=== PATIENT | male | born 1945 | race Caucasian/White ===

== ENCOUNTER 2025-07-06 08:42 | Emergency (ER) | payer OTHER, SELFPAY ==
[2025-07-06 09:14] VITALS: BP 197/95; PULSE 86; RESP 18; TEMP 36.9; O2SAT 99
[2025-07-06 09:16] VITALS: BMI 24.7
--- NOTE | 2025-07-06 09:16 | XR_ITS ---
Examination: Shoulder,left, 3 views Technique: Shoulder AP internal rotation, AP external rotation, Y view shoulder, 3 views Exam date and time :July 06, 2025, 0925 hours INDICATIONS: Patient fell 3 weeks ago with intravenous shoulder, shoulder pain. FINDINGS: No shoulder fracture or dislocation Moderate narrowing glenohumeral joint IMPRESSION: No shoulder fracture or dislocation
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
[2025-07-06] MEDS: HYDROcodone/APAP 5/325 TABLET 1 TAB PO (09:52)
[2025-07-06 10:23] VITALS: BP 142/86; PULSE 68; RESP 18; TEMP 36.6; O2SAT 100
== END 2025-07-06 10:24 | disposition home or self-care (01) ==
PROVIDERS: Emergency Provider Emergency Medicine; PCP Family Medicine
DX: S43.402A Unspecified sprain of left shoulder joint, initial encounter (principal); X58.XXXA Exposure to other specified factors, initial encounter; I10 Essential (primary) hypertension
CPT/HCPCS: 73030; 99284; A9270

== ENCOUNTER → 2025-07-16 | Outpatient (CLI) | payer OTHER, SELFPAY ==
[2025-07-16 10:56] LABS: Basophils # (Auto) 0.0 Thou/mm3 (0.0-0.2); Basophils % (Auto) 0 % (0-2.5); Eosinophils # (Auto) 0.0 Thou/mm3 (0.0-0.5); Eosinophils % (Auto) 0 % (0-10); Hematocrit 41.4 % (41.0-53.0); Hemoglobin 14.1 g/dL (13.5-16.0); Immature Granulocytes Auto 0.03 Thou/mm3 (0.00-0.00); Lymphocytes # (Auto) 1.2 Thou/mm3 (1.0-4.8); Lymphocytes % (Auto) 13 % (10-50); Mean Corpuscular HGB Conc 34.1 g/dl (31.0-37.0); Mean Corpuscular Hemoglobin 29.9 pg (25.0-35.0); Mean Corpuscular Volume 88 fL (80-100); Monocytes # (Auto) 0.7 Thou/mm3 (0.0-0.8); Monocytes % (Auto) 8 % (0-12); Neutrophils # (Auto) 6.8 Thou/mm3 (1.8-7.7); Neutrophils % (Auto) 78 % (37-80); Nucleated Red Blood Cell # 0.00 Thou/mm3 (0.00-0.00); Nucleated Red Blood Cell % 0 /100 WBC (0); Platelet Count 289 Thou/mm3 (140-440); RDW Standard Deviation 40.9 fL (35.1-43.9); Red Blood Count 4.71 Miln/mm3 (4.50-5.90); White Blood Count 8.7 Thou/mm3 (3.8-10.6)
[2025-07-16 11:01] LABS: Glucose Estimated Average 103 mg/dL (80-131); Hemoglobin A1C 5.2 % Hgb (4.8-6.0)
[2025-07-16 11:12] LABS: T4 (Thyroxine) 7.3 mcg/dL (4.5-10.9)
[2025-07-16 11:14] LABS: Alanine Aminotransferase 32 U/L (10-49); Albumin, Serum 4.6 gm/dL (3.4-4.8); Albumin/Globulin Ratio 2.0 (1.2-2.2); Alkaline Phosphatase 99 U/L (46-116); Anion Gap 9 (7-16); Aspartate Amino Transferase 30 U/L (0-34); BUN/Creatinine Ratio 15 Ratio (12-20); Bilirubin,Total 0.7 mg/dL (0.3-1.2); Blood Urea Nitrogen 15 mg/dL (9-23); Calcium 10.1 mg/dL (8.3-10.6); Calcium (Corrected) 10.1 mg/dL (8.5-10.1); Carbon Dioxide 27.6 mMol/L (20.0-31.0); Chloride 97 mMol/L (98-107); Creatinine (Component) 1.0 mg/dL (0.6-1.3); Globulin 2.3 gm/dL (2.3-3.5); Glucose 106 mg/dL (74-106); Osmolality,Calculated 269 (275-295); Potassium 5.7 mMol/L (3.4-5.1); Sodium 134 mMol/L (136-145); Thyroid Stimulating Hormone 1.11 uIU/mL (0.55-4.78); Total Protein 6.9 gm/dL (5.7-8.2); eGFR > 60 See Note
--- NOTE | 2025-07-16 11:30 | XR_ITS ---
Examination: CT left shoulder, without contrast. 2-D sagittal reconstructions. 2-D coronal reconstructions. 3-D reconstructions. Date and time of exam:July 16, 2025 1134 hours INDICATIONS: Patient fell 6 weeks ago with into the shoulder, shoulder pain. CTDI: vol (mGy):6.95 DLP: (mGycm):157 Technique: Multiple 1.25 mm axial sections of the left shoulder without intravenous contrast have been obtained. 2-D sagittal and coronal reconstructions have been obtained. 3-D reconstructions have been obtained. Low dose protocols were performed. One or more of the following dose reduction techniques were used; automated exposure control, adjustment of the mA and/or KV according to patient size, use of iterative reconstruction technique. 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
== END | disposition home or self-care (01) ==
PROVIDERS: PCP Family Medicine; Referring Provider Nurse Practitioner Family; Visit Provider Nurse Practitioner Family
DX: M89.8X8 Other specified disorders of bone, other site (principal); I10 Essential (primary) hypertension
CPT/HCPCS: 36415; 73200; 80053; 83036; 84436; 84443; 85025

== ENCOUNTER → 2025-07-17 | Outpatient (CLI) | payer OTHER, SELFPAY ==
[2025-07-17 09:41] LABS: Alanine Aminotransferase 30 U/L (10-49); Albumin, Serum 4.5 gm/dL (3.4-4.8); Albumin/Globulin Ratio 2.0 (1.2-2.2); Alkaline Phosphatase 113 U/L (46-116); Anion Gap 11 (7-16); Aspartate Amino Transferase 27 U/L (0-34); BUN/Creatinine Ratio 18 Ratio (12-20); Bilirubin,Total 0.4 mg/dL (0.3-1.2); Blood Urea Nitrogen 20 mg/dL (9-23); Calcium 9.9 mg/dL (8.3-10.6); Calcium (Corrected) 9.9 mg/dL (8.5-10.1); Carbon Dioxide 28.2 mMol/L (20.0-31.0); Chloride 100 mMol/L (98-107); Creatinine (Component) 1.1 mg/dL (0.6-1.3); Globulin 2.3 gm/dL (2.3-3.5); Glucose 98 mg/dL (74-106); Osmolality,Calculated 280 (275-295); Potassium 4.4 mMol/L (3.4-5.1); Sodium 139 mMol/L (136-145); Total Protein 6.8 gm/dL (5.7-8.2); eGFR > 60 See Note
== END | disposition home or self-care (01) ==
PROVIDERS: PCP Family Medicine; Referring Provider Nurse Practitioner Family; Visit Provider Nurse Practitioner Family
DX: E87.5 Hyperkalemia (principal)
CPT/HCPCS: 36415; 80053

== ENCOUNTER → 2025-07-20 | Outpatient (CLI) | payer OTHER, SELFPAY ==
--- NOTE | 2025-07-20 09:36 | XR_ITS ---
Examination: PA lateral chest 2 views TECHNIQUE: Upright PA lateral chest 2 views Date and time: July 20, 2025 0945 hours, comparison July 09, 2023 INDICATIONS: Left-sided chest and back pain beginning 2 months ago. FINDINGS: Normal heart size. Suspicious for 4 cm pulmonary mass right upper lobe. No pulmonary edema Prominent osteopenia IMPRESSION: Recommend CT chest post intravenous contrast follow-up to exclude 4 cm pulmonary mass right upper lobe
[2025-07-20 11:25] LABS: PSA Medicare Annual Scrn 1.26 ng/mL (0-4.00)
[2025-07-20 11:29] LABS: AFP Non-Pregnant 1.80 ng/mL (<8.10); Carcinoembryonic Antigen 1.1 ng/mL (0.0-5.0)
[2025-07-27 06:24] LABS: CA 19-9 Antigen* 14 U/mL (<34)
== END | disposition home or self-care (01) ==
LOC: CDIM 09:32 → COPL 09:52
PROVIDERS: PCP Family Medicine; Referring Provider Nurse Practitioner Family; Visit Provider Radiology Diagnostic Radiology
DX: R07.82 Intercostal pain (principal); Z12.5 Encounter for screening for malignant neoplasm of prostate; Z85.830 Personal history of malignant neoplasm of bone
CPT/HCPCS: 36415; 71046; 82105; 82378; 84153; 86301; G0103

== ENCOUNTER → 2025-08-04 | Outpatient (CLI) | payer OTHER, SELFPAY ==
--- NOTE | 2025-08-04 10:20 | XR_ITS ---
Examination: CT chest, without intravenous contrast. Sagittal and coronal 2-D reconstructions. Exam date and time: August 04, 2025 1055 hours INDICATIONS: 4 cm pulmonary mass right upper lobe on chest CTDI:vol (mGy) 7.95 DLP: (mGycm) 272 Technique: Multiple 3.0 mm axial sections of the chest to been obtained. Bone and lung density settings are obtained. Sagittal and coronal 2-D reconstructions have been obtained. Low dose protocols were performed. One or more of the following dose reduction techniques were used; automated exposure control, adjustment of the mA and/or KV according to patient size, use of iterative reconstruction technique. Findings: Thoracic aortic calcification no aneurysmal dilatation Subcentimeter right tracheobronchial lymph nodes Heavy calcification left anterior descending coronary artery 19 mm spiculated pulmonary mass right upper lobe image 79 6 mm pulmonary nodule left upper lobe image 165 4 mm pulmonary nodule right lower lobe image 173 10 mm pulmonary nodule left lower lobe image 227 Pulmonary mass right upper lobe lobular margins 3.7 cm axial image 114 Large soft tissue metastatic mass T5 destroying the vertebral body and extending into the thoracic cord compressing the thoracic cord, axial image 108, this metastatic soft tissue mass measuring at least 5.4 x 4.1 cm No focal liver lesions no gallstones Fat-containing 23 mm right adrenal mass There appears to be a solid mass anterior right kidney on this noncontrast study at least 5.8 cm IMPRESSION: 3.7 cm pulmonary mass right upper lobe with multiple additional nodules, most consistent with lung cancer Soft tissue metastatic mass to C5 destroying this vertebral body and extending into the spinal canal compressing the thoracic cord Recommend emergent MRI cervical thoracic and lumbar spine post contrast follow-up Recommend CT scan abdomen pelvis to assess solid right renal tumor mass and consider CT scan soft tissue neck follow-up to complete staging
== END | disposition home or self-care (01) ==
PROVIDERS: PCP Nurse Practitioner Family; Referring Provider Nurse Practitioner Family; Visit Provider Nurse Practitioner Family
DX: Z12.2 Encounter for screening for malignant neoplasm of respiratory organs (principal); R91.8 Other nonspecific abnormal finding of lung field; C79.51 Secondary malignant neoplasm of bone; C79.49 Secondary malignant neoplasm of other parts of nervous system
CPT/HCPCS: 71271

== ENCOUNTER → 2025-08-17 | Outpatient (CLI) | payer OTHER, SELFPAY ==
[2025-08-17 09:35] LABS: Basophils # (Auto) 0.0 Thou/mm3 (0.0-0.2); Basophils % (Auto) 0 % (0-2.5); Eosinophils # (Auto) 0.0 Thou/mm3 (0.0-0.5); Eosinophils % (Auto) 0 % (0-10); Hematocrit 43.5 % (41.0-53.0); Hemoglobin 15.2 g/dL (13.5-16.0); Immature Granulocytes Auto 0.03 Thou/mm3 (0.00-0.00); Lymphocytes # (Auto) 1.1 Thou/mm3 (1.0-4.8); Lymphocytes % (Auto) 13 % (10-50); Mean Corpuscular HGB Conc 34.9 g/dl (31.0-37.0); Mean Corpuscular Hemoglobin 29.6 pg (25.0-35.0); Mean Corpuscular Volume 85 fL (80-100); Monocytes # (Auto) 0.7 Thou/mm3 (0.0-0.8); Monocytes % (Auto) 9 % (0-12); Neutrophils # (Auto) 6.3 Thou/mm3 (1.8-7.7); Neutrophils % (Auto) 77 % (37-80); Nucleated Red Blood Cell # 0.00 Thou/mm3 (0.00-0.00); Nucleated Red Blood Cell % 0 /100 WBC (0); Platelet Count 354 Thou/mm3 (140-440); RDW Standard Deviation 35.8 fL (35.1-43.9); Red Blood Count 5.14 Miln/mm3 (4.50-5.90); White Blood Count 8.2 Thou/mm3 (3.8-10.6)
[2025-08-17 09:56] LABS: Alanine Aminotransferase 40 U/L (10-49); Albumin, Serum 4.7 gm/dL (3.4-4.8); Alkaline Phosphatase 104 U/L (46-116); Anion Gap 13 (7-16); Aspartate Amino Transferase 38 U/L (0-34); BUN/Creatinine Ratio 11 Ratio (12-20); Bilirubin,Direct 0.2 mg/dL (0.0-0.3); Bilirubin,Total 0.5 mg/dL (0.3-1.2); Blood Urea Nitrogen 14 mg/dL (9-23); Calcium 9.7 mg/dL (8.3-10.6); Carbon Dioxide 25.8 mMol/L (20.0-31.0); Cardiac Risk Estimate 3.5 RATIO (4.0-6.7); Chloride 98 mMol/L (98-107); Cholesterol 274 mg/dL (132-200); Creatinine (Component) 1.3 mg/dL (0.6-1.3); Free T4 (Free Thyroxine) 1.30 ng/dL (0.89-1.76); Glucose 110 mg/dL (74-106); HDL Cholesterol 78 mg/dL (40-60); LDL Cholesterol,Calculated 175 mg/dL (0-130); Osmolality,Calculated 275 (275-295); Potassium 4.1 mMol/L (3.4-5.1); Sodium 137 mMol/L (136-145); Thyroid Stimulating Hormone 1.22 uIU/mL (0.55-4.78); Total Protein 7.4 gm/dL (5.7-8.2); Triglycerides 105 mg/dL (30-150); eGFR 55 See Note
== END | disposition home or self-care (01) ==
LOC: COPL 08:02
PROVIDERS: PCP Family Medicine; Referring Provider Internal Medicine Cardiovascular Disease; Visit Provider Internal Medicine Cardiovascular Disease
DX: I10 Essential (primary) hypertension (principal); E78.5 Hyperlipidemia, unspecified; I20.9 Angina pectoris, unspecified; I49.9 Cardiac arrhythmia, unspecified
CPT/HCPCS: 36415; 80048; 80061; 80076; 84439; 84443; 85025

== ENCOUNTER 2025-09-17 07:29 | Outpatient (CLI) | payer OTHER, SELFPAY ==
[2025-09-15 13:16] VITALS: BMI 19.9
[2025-09-16 12:27] LABS: Basophils # (Auto) 0.1 Thou/mm3 (0.0-0.2); Basophils % (Auto) 0 % (0-2.5); Eosinophils # (Auto) 0.0 Thou/mm3 (0.0-0.5); Eosinophils % (Auto) 0 % (0-10); Hematocrit 40.8 % (41.0-53.0); Hemoglobin 14.1 g/dL (13.5-16.0); Immature Granulocytes Auto 0.04 Thou/mm3 (0.00-0.00); Lymphocytes # (Auto) 1.1 Thou/mm3 (1.0-4.8); Lymphocytes % (Auto) 9 % (10-50); Mean Corpuscular HGB Conc 34.6 g/dl (31.0-37.0); Mean Corpuscular Hemoglobin 28.9 pg (25.0-35.0); Mean Corpuscular Volume 84 fL (80-100); Monocytes # (Auto) 1.1 Thou/mm3 (0.0-0.8); Monocytes % (Auto) 9 % (0-12); Neutrophils # (Auto) 9.2 Thou/mm3 (1.8-7.7); Neutrophils % (Auto) 81 % (37-80); Nucleated Red Blood Cell # 0.00 Thou/mm3 (0.00-0.00); Nucleated Red Blood Cell % 0 /100 WBC (0); Platelet Count 329 Thou/mm3 (140-440); RDW Standard Deviation 35.9 fL (35.1-43.9); Red Blood Count 4.88 Miln/mm3 (4.50-5.90); White Blood Count 11.4 Thou/mm3 (3.8-10.6)
[2025-09-16 12:35] LABS: Blood Urea Nitrogen 28 mg/dL (9-23); Creatinine (Component) 1.1 mg/dL (0.6-1.3); Estimated Creatinine Clearance 39.2 mL/min (>60); eGFR > 60 See Note
[2025-09-16 14:45] LABS: INR 1.0 (0.9-1.3); Partial Thromboplastin Time 38.2 Seconds (22.0-36.0); Prothrombin Time 11.0 Seconds (9.0-12.2)
[2025-09-17] VITALS (16 sets, daily range): BP systolic 113–179; BP diastolic 47–122; PULSE 73–95; RESP 11–20; TEMP 36.2–36.7; O2SAT 96–100
--- NOTE | 2025-09-17 08:30 | XR_ITS ---
EXAM: CT-guided right lung mass biopsy INDICATION: Right lung mass DATE: 09/17/2025, 10:31 a.m. CTDI: 26.2 DLP: 562 PROCEDURE: After discussion of risks and benefits informed consent was obtained. The patient was brought to the CT scanner and placed in the prone position. Preliminary noncontrast enhanced CT demonstrates an ill-defined area of nodularity in the subpleural right lower lobe. This was targeted for biopsy. The overlying skin was cleaned and draped in normal sterile surgical fashion. Conscious sedation was begun with direct continuous nursing supervision. 10 cc of 1% lidocaine was used for local anesthesia. Using CT guidance an 18-gauge needle biopsy system was sequentially advanced into the targeted mass. Multiple core biopsy samples were obtained and given to pathology for analysis The needle was withdrawn. Hemostasis was achieved. The access site was covered with a sterile dressing. Postbiopsy CT was performed which demonstrated no evidence of hemorrhage or pneumothorax. The patient tolerated the procedure well and transferred back to the holding area for post procedural observation. IMPRESSION: Successful CT-guided right lower lobe lung mass biopsy under conscious sedation as described above. If additional biopsy samples are needed left lower lobe pulmonary mass extending into the adjacent vertebral body with destructive bony changes should be considered for biopsy site.
--- NOTE | 2025-09-17 08:41 | PC.NURSE ---
patient scheduled for ct guided lung biopsy and took aspirin yesterday morning, Dr. Rice made aware, ok to proceed with scheduled procedure
[2025-09-17] MEDS: fentaNYL CIT INJ 50 mCg/ML AMP 2ML 100 MCG IVP (10:46)
[2025-09-17] MEDS: MIDAZOLAM INJ 1 MG/ML VIAL 2 ML IVP (10:46)
[2025-09-17] MEDS: LIDOCAINE INJ PF 1% 30 ML VIAL 10 ML INFL (10:47)
--- NOTE | 2025-09-17 11:07 | PC.LAC ---
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 chest xray ordered for 120 and 1300.
--- NOTE | 2025-09-17 12:00 | XR_ITS ---
CLINICAL INDICATION: post lung biopsy TECHNIQUE: XR chest 1V post procedure COMPARISON: Same day CT guided lung biopsy.. CT low-dose lung screening 08/04/2025 chest radiographs 07/20/2025. FINDINGS: The cardiomediastinal silhouette is within normal limits. No evidence for postbiopsy pneumothorax on the right. Masslike consolidation is reidentified in the right upper lobe. The remaining lungs appear clear. No pleural effusion. Multifocal degenerative changes with otherwise no evidence for recent fracture or aggressive lesion. IMPRESSION: No evidence for postbiopsy pneumothorax of the right upper lobe mass. - This report was generated utilizing speech recognition software. -
--- NOTE | 2025-09-17 12:06 | PC.NURSE ---
first chest xray completed, images reviewed by Dr. Rice, no pneumothorax seen, second xray ordered for 1300
--- NOTE | 2025-09-17 12:10 | PC.NURSE ---
patient awake, alert, breathing unlabored, dressing dry with no bleeding, report given to Candice Rhoades RN, waiting for second xray at 1300 to be discharged home
--- NOTE | 2025-09-17 13:00 | XR_ITS ---
Examination: Chest, AP, portable, single view post procedure. Technique: Chest, AP upright, portable, single view Date and time: 09/17/2025, 1:02 p.m. COMPARISON: Earlier today FINDINGS: No interval change. No pneumothorax. IMPRESSION: No pneumothorax.
== END 2025-09-17 13:43 | disposition home or self-care (01) ==
PROVIDERS: PCP Nurse Practitioner Family; Referring Provider Nurse Practitioner Family; Visit Provider Radiology Diagnostic Radiology
DX: D49.1 Neoplasm of unspecified behavior of respiratory system (principal)
CPT/HCPCS: 32408; 36415; 77012; 82565; 84520; 85025; 85610; 85730; 99152; A4649; J2250; J3010; J3490

== ENCOUNTER → 2025-09-29 | Outpatient (CLI) | payer MEDICARE, SELFPAY ==
--- NOTE | 2025-09-29 11:00 | XR_ITS ---
EXAMINATION: PET/CT FUSION SKULL TO THIGH EXAM DATE AND TIME: September 29, 2025, 1237 hours INDICATIONS: Renal cell carcinoma diagnosis, staging post treatment CTDI:vol (mGy) 3.57 DLP: (mGycm) 326.42 PROCEDURE: 13.2 mCi FDG was administered intravenously To allow for distribution and uptake of radiotracer, the patient was allowed to rest quietly in a shielded room. Imaging was performed on an integrated 16-slice PET/CT scanner, with scanning from the skull base to the mid thigh. Serum blood glucose at the time of the injection was measured 113 mg/dL. CT scanning was performed without oral or intravenous contrast material. FINDINGS: Head and Neck: There is no julio hypermetabolism in the neck. The visualized portions of the brain are normal in appearance on CT. Nonspecific hypermetabolic activity in the larynx Chest: Weakly hypermetabolic pulmonary mass right apex, 18 x 12 mm Hypermetabolic spiculated pulmonary mass right upper lobe 4.1 x 3.6 cm compared to 3.[address] lung study 08/04/2025 2 mm pulmonary nodule right lower lobe Hypermetabolic paraspinal mass upper left thorax, T5-T6 mass measuring at least 8.1 x 5.7 cm which is extending into the spinal canal at the T5-T6 level Abdomen and Pelvis: There is no julio hypermetabolism in retroperitoneal or pelvic chains. The spleen is normal in size and FDG avidity. Musculoskeletal: Marrow uptake is within normal range. IMPRESSION: 3 hypermetabolic pulmonary mass right apex 18 x 12 mm Hypermetabolic spiculated pulmonary mass right upper lobe 4.1 x 3.6 cm compared to 3.7 x 3.[address] lung study 08/04/2025 Hypermetabolic 8.1 x 5.7 cm mass upper thorax which is extending into the spinal canal compressing upon the thoracic cord, recommend MRI thoracic spine follow-up, pre and postcontrast to best assess cord compression
== END | disposition home or self-care (01) ==
PROVIDERS: PCP Family Medicine; Referring Provider Specialist; Visit Provider Specialist
DX: R91.8 Other nonspecific abnormal finding of lung field (principal)
CPT/HCPCS: 78815; A9552

== ENCOUNTER 2025-10-05 10:51 | Emergency (ER) | payer MEDICARE, SELFPAY ==
--- NOTE | 2025-10-05 | XR_ITS ---
Examination: MRI lumbar spine, without intravenous contrast. MRI lumbar spine, with intravenous contrast. Exam date and time: October 05, 2025, 1644 hours INDICATIONS: PET/CT scan hypermetabolic mass upper thorax paraspinal T5-T6 level extending into the spinal canal, September 29, 2025 Technique: Multiple axial, sagittal and coronal images of the lumbar spine have been obtained with the Siemens high-resolution 1.5 Arely MRI scanner. Images obtained included T2 weighted fat suppressed sagittal sections, TR 3500, TE 46, T2 weighted coronal fat suppressed images, TR 3050, TE 84, T2-weighted transverse fat suppressed images, TR 30-60, TE 63, proton density transverse images, TR 4720, TE 46, and T1 weighted coronal images, TR 560, TE 13. Axial, sagittal and coronal images are obtained post intravenous injection 5 cc gadolinium. Findings: Grade 1 anterolisthesis L4 on L5 Diffuse moderate to advanced lumbar degenerative disc disease Diffuse lumbar disc desiccation L4-L5 severe acquired spinal stenosis, 6 mm central lumbar disc bulge, prominent facet arthropathy and thickening of ligamentum flavum circumferentially narrowing the thecal sac, axial image 4 Postcontrast images do not demonstrate abnormal osseous epidural conus medullaris or cauda equina enhancement IMPRESSION: L4-L5 severe acquired spinal stenosis Postcontrast images do not demonstrate abnormal osseous epidural conus medullaris or cauda equina enhancement
--- NOTE | 2025-10-05 | XR_ITS ---
EXAMINATION: MRI thoracic spine with intravenous contrast TECHNIQUE: MRI axial sagittal images thoracic spine pre and post intravenous administration 5 cc gadolinium Date and time: October 05, 2025, 1655 hours INDICATIONS: Hypermetabolic paraspinal mass upper left thorax T5-T6 level, 8.1 x 5.7 cm on PET/CT scan September 29, 2025 FINDINGS: Left thoracic tumor mass replacing the T5 and T6 vertebral bodies, transverse dimension 8.3 cm anterior posterior dimension 5.1 cm This mass at the T5 level is severely compressing the spinal cord, this is visualized on axial image 15 and postcontrast sagittal image 11 through 13 Abnormal enhancement of both the T5 and T6 vertebral bodies Milder epidural tumor posterior to T6 and T7 IMPRESSION: 8.3 x 5.1 cm tumor mass replacing the T5-T6 vertebral bodies, producing severe thoracic cord compression at the T5 level, postcontrast axial image 15 and sagittal images 11 through 13 Recommend urgent neurosurgical/radiation therapy consultation
[2025-10-05 11:05] VITALS: BP 149/79; PULSE 89; RESP 18; TEMP 36.6; O2SAT 99; BMI 24.9
--- NOTE | 2025-10-05 11:17 | PD.EDRME ---
Rapid Medical Screening Exam E Arrival date/time: 10/05/25 10:51 79-year-old male with a history of hypertension, lung cancer presents to the emergency room with a chief complaint of 10 out of 10 pain throughout his body. Patient states he recently had a PET scan on 09/29/2025 that showed the cancer had spread. I have greeted and performed a focused initial assessment of this patient. A comprehensive ED assessment and evaluation of the patient, analysis of all test results, and completion of the medical decision making process will be conducted by additional ED providers. Chief Complaint: Back Pain/Injury Time Seen by Provider: 10/05/25 11:11 Vital signs: Vital Signs Temperature 97.9 F 10/05/25 11:05 Pulse Rate 89 10/05/25 11:05 Respiratory Rate 18 10/05/25 11:05 Blood Pressure 149/79 H 10/05/25 11:05 Pulse Oximetry (%) 99 10/05/25 11:05 Oxygen Delivery Method Room Air 10/05/25 11:05 Vital signs reviewed by provider: Yes Exam: Clear bilateral lung sounds Strong and regular rhythm S1 and S2 noted Clinical Impression: Breakthrough pain due to cancer/lung cancer/shortness of breath
[2025-10-05 11:55] LABS: Basophils # (Auto) 0.0 Thou/mm3 (0.0-0.2); Basophils % (Auto) 0 % (0-2.5); Eosinophils # (Auto) 0.0 Thou/mm3 (0.0-0.5); Eosinophils % (Auto) 0 % (0-10); Hematocrit 38.5 % (41.0-53.0); Hemoglobin 13.1 g/dL (13.5-16.0); Immature Granulocytes Auto 0.04 Thou/mm3 (0.00-0.00); Lymphocytes # (Auto) 0.8 Thou/mm3 (1.0-4.8); Lymphocytes % (Auto) 11 % (10-50); Mean Corpuscular HGB Conc 34.0 g/dl (31.0-37.0); Mean Corpuscular Hemoglobin 29.0 pg (25.0-35.0); Mean Corpuscular Volume 85 fL (80-100); Monocytes # (Auto) 0.6 Thou/mm3 (0.0-0.8); Monocytes % (Auto) 8 % (0-12); Neutrophils # (Auto) 6.4 Thou/mm3 (1.8-7.7); Neutrophils % (Auto) 80 % (37-80); Nucleated Red Blood Cell # 0.00 Thou/mm3 (0.00-0.00); Nucleated Red Blood Cell % 0 /100 WBC (0); Platelet Count 296 Thou/mm3 (140-440); RDW Standard Deviation 40.5 fL (35.1-43.9); Red Blood Count 4.52 Miln/mm3 (4.50-5.90); White Blood Count 7.9 Thou/mm3 (3.8-10.6)
[2025-10-05 12:11] LABS: Alanine Aminotransferase 20 U/L (10-49); Albumin, Serum 4.1 gm/dL (3.4-4.8); Albumin/Globulin Ratio 1.8 (1.2-2.2); Alkaline Phosphatase 86 U/L (46-116); Anion Gap 12 (7-16); Aspartate Amino Transferase 30 U/L (0-34); BUN/Creatinine Ratio 16 Ratio (12-20); Bilirubin,Total 0.5 mg/dL (0.3-1.2); Blood Urea Nitrogen 25 mg/dL (9-23); Calcium 8.7 mg/dL (8.3-10.6); Calcium (Corrected) 8.7 mg/dL (8.5-10.1); Carbon Dioxide 26.1 mMol/L (20.0-31.0); Chloride 104 mMol/L (98-107); Creatinine (Component) 1.6 mg/dL (0.6-1.3); Estimated Creatinine Clearance 30.3 mL/min (>60); Globulin 2.3 gm/dL (2.3-3.5); Glucose 134 mg/dL (74-106); Lipase 29 U/L (12-53); Osmolality,Calculated 289 (275-295); Potassium 3.8 mMol/L (3.4-5.1); Sodium 142 mMol/L (136-145); Total Protein 6.4 gm/dL (5.7-8.2); eGFR 43 See Note
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
--- NOTE | 2025-10-05 12:48 | PC.NURSE ---
JYOTI AT BEDSIDE TALKING TO PT AND FAMILY IN REGARDS TO PLAN OF CARE.
--- NOTE | 2025-10-05 12:58 | PD.EDADULT ---
ED General RME/HPI General Chief complaint: Back Pain/Injury Stated complaint: WORSENING BACK PAIN 08/21 Time Seen by Provider: 10/05/25 11:11 Arrival date/time: 10/05/25 10:51 CC: Acute on chronic low back pain. The patient presents to the ER with his and daughter after having this worsening of the pain. Patient is known to have masses in his system, the patient had a PET scan performed on 29 September 2025 which basically showed that the patient has a large erosive mass in the thorax which is extending into the spinal canal compressing on the thoracic cord. There is a recommended MRI. Family member states the patient has had multiple falls in the past 6 months but denies LOC or ALOC. The patient is not on any blood thinners. Patient denies fever chills chest pain shortness of breath or difficulty breathing. Patient is complaining of bilateral upper shoulder pain and low back pain that is absent when laying perfectly still but painful when moving. Initial biopsy of the lung mass from September 17, 2025 shows nonmalignant tissue. Family member states they have been getting pain medications from their PCP but there has been no further workup other than the PET scan as stated above. Patient is awake alert oriented flat affect no direct eye contact but stable vital signs. Currently pain is 0 but when the patient moves the pain goes to a 7 to an 8. Pain is located in the mid lower back. RME / HPI RME / HPI narrative: 10/05/25 10:51 79-year-old male with a history of hypertension, lung cancer presents to the emergency room with a chief complaint of 10 out of 10 pain throughout his body. Patient states he recently had a PET scan on 09/29/2025 that showed the cancer had spread. I have greeted and performed a focused initial assessment of this patient. A comprehensive ED assessment and evaluation of the patient, analysis of all test results, and completion of the medical decision making process will be conducted by additional ED providers. Exam: Clear bilateral lung sounds Strong and regular rhythm S1 and S2 noted Impression: Breakthrough pain due to cancer/lung cancer/shortness of breath Related Data Home Medications ?Medication ?Instructions ?Recorded ?Confirmed levetiracetam 500 mg tablet 1,000 mg PO BID 07/04/23 09/17/25 lisinopril 20 mg tablet 20 mg PO DAILY 07/04/23 09/17/25 aspirin 81 mg tablet 81 mg PO QDAY 09/17/25 09/17/25 Held on 09/17/25. Instructions: Resume on 09/18/25. carbamazepine 300 mg 300 mg PO Q12H 09/17/25 09/17/25 capsule,extended release [id number] Allergies Allergy/AdvReac Type Severity Reaction Status Date / Time lactose Allergy Unknown Diarrhea Verified 10/05/25 10:54 Review of Systems Review of Systems Narrative Review of Systems: GEN: No fever, no chills, no weight loss EYES: No discharge, no visual changes, no pain HEENT: No ear pain, no congestion, no sore throat PULM: No shortness of breath, no cough, no congestion CV: No chest pain, no dyspnea on exertion, no palpitations GI: No nausea, no vomiting, no diarrhea, no pain, no constipation : No frequency, no urgency, no dysuria MUSC/SKEL: No joint pain, + back pain SKIN: No rash PSYCH: No hallucinations, no depression HEME/LYMPH: No easy bleeding or bruising tendencies NEURO: No weakness, no headache Past Medical History Past Medical History NEUROLOGIC: Positive Neurological Disorders, Seizures (last seizure 08/2025) and Traumatic Brain Injury (at age 17); Negative Cerebrovascular Accident or Alzheimer's Disease CARDIAC: Positive Cardiac Disorders, Hypercholesterolemia and Hypertension; Negative Congestive Heart Failure or Valvular Heart Disease RESPIRATORY: Negative Chronic Obstructive Pulmonary Disease (COPD), Asthma, Bronchitis or Sleep Apnea GASTROINTESTINAL: Negative Gastrointestinal Disorders GENITOURINARY: Negative Genitourinary Disorders, Renal Disease or Kidney Stones MUSCULOSKELETAL: Positive Musculoskeletal Disorders, Arthritis and Fractures ENT: Positive Cataracts ENDOCRINE: Negative Endocrine Disorders, Diabetes Mellitus Type 1 or Diabetes Mellitus Type 2 HEMATOLOGIC: Negative Blood Disorders PSYCHO/SOCIAL: Positive Depression and Anxiety OTHER HISTORY: Positive Hospitalization, Falls, Blood Transfusions (2022) and Cancer (back cancer, spinal CA); Negative Autoimmune Disease, Down Syndrome, Developmental Delay, Shingles, Blood Transfusion Reaction, Anesthesia Reactions, Chemotherapy or Radiation Therapy Surgical History SURGICAL: Negative Cardiac Surgery, Pacemaker, Ear Surgery, Abdominal Surgery or Vasectomy Social History SMOKING STATUS: Current every day smoker SECOND HAND EXPOSURE: No (QUIT 30 yrs ago) ED Exam Narrative Physical exam: [General: Thin but not emaciated appears in mild discomfort but not in any acute distress Head normocephalic HEENT: Eyes: Pupils are PERRLA EOMs are intact mouth pink moist membranes uvula is midline swallow symmetrical phonation is normal all other subsystems of HEENT are within acceptable limits Neck is supple nontender Chest equal chest rise nontender to palpation Respiratory: Clear to auscultation no wheezes crackles or rubs CV: Rate rhythm is regular no murmurs rubs or clicks Abdomen is soft nontender no masses positive bowel sounds all 4 quadrants Back: No CVA tenderness no spinous process tenderness from cervical spine thoracic and lumbar spine Skin: Intact no petechiae rash induration ulceration or crepitus Extremities: Moving all extremities weakly against resistance cap refill less than 2 seconds neurosensory intact Neuro: Awake alert oriented x3 Glascow coma 15 no focal deficits] Course Course Course Narrative: At 1643 after multiple conversations with the , the daughter, the patient he has consented to transfer and surgery. Patient is a full code. CT of the chest abdomen pelvis shows significant erosion of T5-6 with mass that is impinging on the thoracic cord. Patient has hip flexor weakness on the right side otherwise no other focal deficits. Patient remains awake alert oriented nontoxic-appearing with stable vital signs At 1844, patient accepted by Dr. Jeff at [facility] in [place]. Patient is in agreement with this plan. Quality Measures none Orders Category Date Time Status Insert IV STAT Care 10/05/25 11:15 Completed MRI Screening NOW Care 10/05/25 14:37 Completed MRI Screening NOW Care 10/05/25 14:38 Completed MRI Screening NOW Care 10/05/25 14:38 Completed MRI Screening NOW Care 10/05/25 14:39 Completed Saline [Insert IV] NOW Care 10/05/25 13:11 Completed Referral - Layout Mechanic Stat Cons 10/05/25 14:[address] cervical spine wo con Stat Exams 10/05/25 13:[address] chest abdomen pelvis wo Stat Exams 10/05/25 13:[address] head/brain wo con Stat Exams 10/05/25 13:11 Completed MR lumbar spine wo/w con Stat Exams 10/05/25 Completed MR thoracic spine wo/w con Stat Exams 10/05/25 Completed CBC Stat Lab 10/05/25 11:22 Completed CMP [Comprehensive Metabolic Panel] Stat Lab 10/05/25 11:22 Completed Lipase Stat Lab 10/05/25 11:22 Completed UA [Urinalysis] Stat Lab 10/05/25 17:40 Completed Urine Culture Stat Lab 10/05/25 17:40 Received Lisinopril [Prinivil] Med 10/05/25 19:58 Discontinued 20 mg PO X1 ONE Morphine* Inj Med 10/05/25 11:15 Discontinued 4 mg IVP X1 ONE Ondansetron Inj [Zofran Inj] Med 10/05/25 11:15 Discontinued 4 mg IVP X1 ONE Sodium Chloride 0.9% 1000 ml [Ns] 1,000 ml Med 10/05/25 13:11 Discontinued IV 999 mls/hr levETIRAcetam INJ [Keppra Inj] Med 10/05/25 19:58 Discontinued 1,000 mg IVP X1 ONE Vital Signs Vital signs: Vital Signs Temperature 97.9 F 10/05/25 11:05 Pulse Rate 89 10/05/25 11:05 Respiratory Rate 18 10/05/25 11:05 Blood Pressure 149/79 H 10/05/25 11:05 Pulse Oximetry (%) 99 10/05/25 11:05 Oxygen Delivery Method Room Air 10/05/25 11:05 Discharge Plan Plan Patient Disposition: [facility] Acute Care Fac Service Needed for Transfer: Neurosurgery Patient condition on transfer: Stable Prescriptions/Referrals Prescriptions/Med Rec: No Action levetiracetam 500 mg tablet 1,000 mg PO BID lisinopril 20 mg tablet 20 mg PO DAILY carbamazepine 300 mg capsule, ER multiphase 12 hr 300 mg PO Q12H aspirin 81 mg tablet 81 mg PO QDAY Referrals: Qiana Howard MD [Primary Care Provider, Family Practice] - In 1 week Problem List Clinical Impression: Neoplasm of thoracic spine Patient/Caregiver Discharge Instructions Print Language: Hungarian Stand Alone Forms: Patience Award Info., Patient Portal Info Letter PA/SEAFOOD FISHERMAN Supervising Physician PA/SEAFOOD FISHERMAN Supervising Physician: Parish horner ENP MDM Narrative MDM hospital course (for use when minimal MDM required): 1439: Transfer nurse made aware of CT findings and plan to transfer. Clinical Information Provided by: patient, spouse and family Medical Records reviewed [facility] Meds/Rx considered, not ordered None Labs/Rad/Tests considered, not ordered None EKG EKG not done Labs Labs: interpreted by sc Lab(s) Interpretation(s): CBC shows no acute leukocytosis anemia thrombocytopenia CMP shows BUN of 25 creatinine 1.6. Glucose of 134. No other electrolyte imbalances renal impairment or transaminitis And lipase of 29. Medication Administration(s) Medication Administration History Discontinued Medications Sodium Chloride (Ns) 1,000 mls @ 999 mls/hr IV .Q1H1M ONE Stop: 10/05/25 14:11 Last Infusion: 10/05/25 17:02 Dose: Infused Documented By: Admin: 10/05/25 13:27 Dose: 999 mls/hr Documented By: BERRY Levetiracetam (Levetiracetam Inj 100 Mg/Ml Vial 5ml) 1,000 mg IVP X1 ONE Stop: 10/05/25 19:59 Last Admin: 10/05/25 20:08 Dose: 1,000 mg Documented By: PRISCILA Lisinopril (Lisinopril 20 Mg Tablet) 20 mg PO X1 ONE Stop: 10/05/25 19:59 Last Admin: 10/05/25 20:08 Dose: 20 mg Documented By: PRISCILA Morphine Sulfate (Morphine Sulf Inj 4 Mg/Ml Vial) 4 mg IVP X1 ONE Stop: 10/05/25 11:16 Last Admin: 10/05/25 13:34 Dose: 4 mg Documented By: BERRY Comments: PRE MEDICATION FOR CT Ondansetron HCl (Ondansetron Inj 2 Mg/Ml Inj 2 Ml) 4 mg IVP X1 ONE; Protocol Stop: 10/05/25 11:16 Last Admin: 10/05/25 13:34 Dose: 4 mg Documented By: BERRY
--- NOTE | 2025-10-05 13:11 | XR_ITS ---
Examination: CT brain head without contrast. 2-D sagittal coronal reconstructions Date and time of exam: October 05, 2025, 1354 hours INDICATIONS: Multiple falls over the last 6 months last one 1 week ago, diagnosis tumor masses in And compression of the upper thoracic spine by paraspinal tumor T5-T6 level CTDI: vol (mGy): 51.6 DLP: (mGycm): 1028 Technique: Multiple CT axial sections of the brain have been obtained, 5 mm slice thickness. Contrast has not been administered. 2-D sagittal, coronal reconstructions have been obtained Low dose protocols were performed. One or more of the following dose reduction techniques were used; automated exposure control, adjustment of the mA and/or KV according to patient size, use of iterative reconstruction technique. Findings: No significant ventricular enlargement. Intra-axial or extra-axial hemorrhage density is not seen. No mass effect or midline shift Basal cisterns are not remarkable. Fourth ventricle is midline. Cranial vault intact. Impression: Negative for acute hemorrhage, mass effect or midline shift
--- NOTE | 2025-10-05 13:11 | XR_ITS ---
Examination: CT cervical spine without contrast 2-D sagittal reconstructions 2-D coronal reconstructions 3-D reconstructions. Exam date and time: October 05, 2025, 1356 hours INDICATIONS: Multiple falls in the last 6 months including 1 week ago with injury to the neck, neck pain CTDI:vol (mGy) 14.3 DLP: (mGycm) 313 Technique: Multiple 2 mm axial sections of the cervical spine have been obtained. The coronal and sagittal reconstructions have been obtained. 3-D reconstructions have been obtained. Low dose protocols were performed. One or more of the following dose reduction techniques were used; automated exposure control, adjustment of the mA and/or KV according to patient size, use of iterative reconstruction technique. Findings: Axial sections demonstrate intact base of the skull. C1 exhibit satisfactory relationship to the odontoid. No acute cervical vertebral body fracture seen. Alignment posterior spinous processes satisfactory. Impression: No acute cervical fracture.
--- NOTE | 2025-10-05 13:14 | XR_ITS ---
Examination: CT chest, without intravenous contrast. CT abdomen, without intravenous contrast. CT pelvis, without intravenous contrast. 2-D sagittal and coronal reconstructions. 3-D reconstructions. Date and time of exam: October 05, 2025, 1357 hours, comparison September 29, 2025 INDICATIONS: Upper back pain shortness of breath chest pain, diagnosis renal cell carcinoma, PET/CT scan September 29, 2025 hypermetabolic pulmonary mass right apex 18 x 12 mm hypermetabolic spiculated pulmonary mass right upper lobe 4.1 x 3.6 cm, 2 mm pulmonary nodule right lower lobe, hypermetabolic paraspinal mass upper left thorax T5-T6 extending into the spinal canal CTDI vol (mgy) 4.13 DLP (MGycm) 293 Technique: Multiple CT images, 3.0 mm slice thickness, obtained chest, abdomen, pelvis, with the high-resolution 64 slice scanner.. Sagittal and coronal 2-D reconstructions are obtained. 3-D reconstructions Low dose protocols were performed. One or more of the following dose reduction techniques were used; automated exposure control, adjustment of the mA and/or KV according to patient size, use of iterative reconstruction technique. Findings: No thoracic aortic aneurysm dilatation Pulmonary artery segments are not enlarged Mild right hilar lymphadenopathy Again noted 18 mm pulmonary mass right apex and 4.1 cm pulmonary mass spiculated margins right upper lobe Again noted soft tissue mass upper medial left hemithorax, T5-T6 level on the left side, 8 x 6 cm, extending into the spinal canal likely impinging upon the thoracic cord, destroying lateral portions of the T5 and T6 vertebral bodies No interval pneumonia No visualized liver or splenic lesions Mild ascites No gallstones No pancreatic or adrenal mass 2 mm 5 mm right renal calculi, no hydronephrosis Aorta normal size No bowel obstruction Normal appendix No diverticulitis Intact urinary bladder Mild prostatomegaly Severe osteopenia Advanced degenerative disc disease L4-L5, L5-S1 IMPRESSION: Mild right hilar adenopathy 18 mm pulmonary mass right apex 4.1 cm pulmonary mass spiculated margins right upper lobe Large soft tissue mass 8 x 6 cm, T5-T6 level, destroying much of these vertebral bodies and extending into the spinal canal likely impinging upon the thoracic cord, recommend emergent MRI thoracic spine follow-up postcontrast to exclude tumor impinging upon the thoracic cord at this level Mild ascites Nonobstructing right renal calculi No bowel obstruction
[2025-10-05] MEDS: SODIUM CHLORIDE 0.9% 1000 ML 1,000 ML 999 ML IV (13:27)
[2025-10-05] MEDS: ONDANSETRON INJ 2 MG/ML INJ 2 ML 4 MG IVP (13:34)
[2025-10-05] MEDS: MORPHINE SULF INJ 4 MG/ML VIAL IVP (13:34)
--- NOTE | 2025-10-05 13:45 | PC.NURSE ---
PT TAKEN TO CT VIA RESTHER.
--- NOTE | 2025-10-05 14:14 | PC.NURSE ---
PT BACK FROM CT
[2025-10-05 14:41] VITALS: BP 167/75; PULSE 69; RESP 18; TEMP 36.7; O2SAT 95
--- NOTE | 2025-10-05 16:53 | PC.NURSE ---
PT TAKEN TO MRI VIA RESTHER.
--- NOTE | 2025-10-05 17:03 | PC.CM ---
Addendum entered by Oliva Arita RN 10/05/25 19:43: [place] grape picker time set for 2100. Number to call and give report is [phone].I updated charge nurse. Addendum entered by Oliva Arita RN 10/05/25 19:24: Patient accepted by [facility] with Dr. Castillo ED to ED. Jennifer transfer nurse from [facility] states they want the radiology images on CD. I waited until the MRI results were completed. Patient and family agreeable to transfer. I handed completed transfer packet with 1 CD to ED charge nurse. I will call and set up transport. Original Note: 1600 Jennifer called to speak to Parish Means. She asked if patient was willing to be transferred and was he agreeable for surgery. Parish spoke to family and patient and he declined to have surgery. I put transfer on hold at this time. 1510 I faxed over paperwork to [facility] and I pushed over images. I started transfer packet. 1445 I received a referral to transfer patient for neurosurgery.
[2025-10-05 17:48] LABS: Collection Type, Urine Clean Catch
[2025-10-05 17:54] LABS: Bilirubin,Urine Negative (Negative); Blood,Urine Negative (Negative); Clarity,Urine Clear (Clear/Hazy); Color,Urine Lt-Yellow (Lt Yel-Yel); Glucose, Urine Negative (Negative); Hyaline Casts,Urine < 1 /hpf (0-1); Ketones,Urine Negative (Negative); Leukocyte Esterase,Urine Negative (Negative); Nitrite,Urine Negative (Negative); PH,Urine 6.0 (5.0-7.0); Protein,Urine Trace (Neg - Trace); RBC,Urine 3 /hpf (0-3); Specific Gravity,Urine 1.023 (1.001-1.035); Squamous Epithelial Cell,Urine < 1 /hpf (0-5); Urobilinogen,Urine Negative mg/dL (0.0-1.0); WBC,Urine 1 /hpf (0-5)
[2025-10-05 19:18] VITALS: BP 155/81; PULSE 80; RESP 20; TEMP 37.3; O2SAT 98
[2025-10-05 20:08] VITALS: BP 150/84; PULSE 70
[2025-10-05] MEDS: levETIRAcetam INJ 100 MG/ML VIAL 5ML 1000 MG IVP (20:08)
== END 2025-10-05 20:11 | disposition short-term general hospital (02) ==
PROVIDERS: Emergency Provider Nurse Practitioner Family; PCP Family Medicine
DX: D49.7 Neoplasm of unspecified behavior of endocrine glands and other parts of nervous system (principal); S19.9XXA Unspecified injury of neck, initial encounter; R06.02 Shortness of breath; M54.50 Low back pain, unspecified; R07.9 Chest pain, unspecified; G89.29 Other chronic pain; Z91.81 History of falling; X58.XXXA Exposure to other specified factors, initial encounter; Z75.1 Person awaiting admission to adequate facility elsewhere
CPT/HCPCS: 36415; 70450; 71250; 72125; 72157; 72158; 74176; 80053; 81001; 83690; 85025; 87086; 96361; 96374; 96375; 99284; A9577; J1953; J2270; J2405; J7030; A9270

== ENCOUNTER 2025-10-13 22:24 | Inpatient (IN) | payer MEDICARE, SELFPAY ==
[2025-10-13 21:24] VITALS: RESP 96; BMI 21.2
[2025-10-13 21:55] VITALS: BP 132/72; PULSE 84; RESP 18; TEMP 36.9; O2SAT 97; BMI 20.2
[2025-10-13 22:18] VITALS: RESP 95
--- NOTE | 2025-10-13 22:35 | EKG_ITS ---
[facility] Test Date: 2025-10-13 Pat Name: GERONIMO ERALY Department: Room: [facility] Gender: Male Apiculturist: : 1945 Requested By: Zeeshan Magaña Order Number: [id number] Reading MD: Zeeshan Magaña Measurements Intervals [place] Rate: 79 P: 21 NH: 148 QRS: 82 QRSD: 121 T: 28 QT: 416 QTc: 479 Interpretive Statements SINUS RHYTHM RIGHT BUNDLE BRANCH BLOCK Compared to ECG 07/09/2023 19:50:11 Indeterminate axis no longer present /store/S0/[id number].pdf
--- NOTE | 2025-10-13 22:42 | ESHP_ITS ---
<Statement entered by Sudeep Reeves MD - 10/14/25 07:36> I have discussed and was present for the essential components of the history, physical examination, diagnosis, and treatment plan with the resident. I agree with the patient's care as documented by the resident and amended herein by me. Sudeep Reeves MD FACP <Statement entered by Richy Kraft MD - 10/14/25 06:42> 79-year-old male with significant past medical history of seizures, TBI, right apical lung mass s/p biopsy on 09/17/2025 [negative for malignancy] presented to the hospital with worsening back pain and difficulty in walking on 10/05/2025. MRI spine done at that time showed left thoracic mass at the level of T4-T6 vertebral bodies and later was transferred to [facility] where he underwent thoracic decompression and fusion on 10/07. Patient was transferred back to our facility for further management also noted to have large erosive mass in the thorax extending into the spinal canal, resulting in the compression of thoracic cord, hypermetabolic spiculated pulmonary mass. Referral to physical therapy is done. Resumed his home medication. Recommended to follow-up on pathology from [facility]. I have personally seen and examined the patient, agree with residents assessment and plan Patient plan of care was discussed with the attending physician, Dr. Leandro Kraft, PGY2 Documentation for date of: 10/13/25 HPI History of Present Illness Chief complaint: Back pain s/p posterior thoracic decompression and fusion History of present illness: This patient is an 79-year-old male with a history of TBI, seizures, and right apical lung mass status postbiopsy 09/17/2025 (negative for malignancies) who initially presented to [facility] ED on 10/05/2025 for worsening back pain. The patient was transferred to [facility] after thoracic spine MRI found left thoracic mass at the level of T4-T6 vertebral bodies, and is transferred back to [facility] on 10/13 after posterior thoracic decompression and fusion performed on 10/07. Attempted to obtain history from the patient at bedside, however the patient was not very cooperative and seemed a bit cantankerous. He was able to follow simple commands but believe that he was still in [place] and thought that the year was 2011. Per chart review, the patient has been complaining of chronic shoulder pain and low back pain and has had multiple falls over the past 6 months without loss of consciousness. The patient was noted to have a PET scan on 10/02/2025 that showed a large erosive mass in the thorax extending into the spinal canal, resulting in compression of the thoracic cord. The patient would then present on 10/05 for acute worsening of his chronic back pain. CT chest/abdomen/pelvis performed on 10/05 showed a large soft tissue mass at the level of T5-T6 (later described as T4-T6 by [facility] imaging) destroying much of the vertebral bodies and extending into the spinal canal. MRI after the CT scan of the thoracic spine also visualized this mass along with severe compression of the spinal cord as well as at L4-L5 severe acquired spinal stenosis. The patient would then be transferred to [facility] for neurosurgery services, who performed a posterior thoracic decompression and fusion with removal of the T4- T6 mass on 10/07. Patient was admitted to the neuro ICU for further monitoring and briefly required vasopressors postop, and successfully weaned off of vasopressors on 10/09. Of note, patient was found to have a heterogenously enhancing mass in the right kidney that was noted to be suspicious for renal cell carcinoma on repeat CT chest/abdomen/pelvis performed at [facility]. [facility] attempted to perform MRI head to assess for any masses, but the patient did not tolerate this imaging. Instead, CT head with contrast was performed and no metastatic lesions were found on that imaging. On 10/13, the patient removed his NG tube and his drain placed in his back after the neurosurgical procedure and refused to have reinsertion. As a result, palliative care was consulted on this patient for goals of care discussion, however there was records were not included on the transfer back records. Neurosurgery officially signed off on 10/13 and recommended outpatient follow-up, so the patient was transferred back to [facility] for further care. No pathology report was included on transfer back documents. Review of Systems Review of Systems Systems Reviewed: All systems reviewed, normal except as documented Exam Narrative Exam Physical Exam: General: Alert, no acute distress. Skin: Warm, dry, intact. Head: Normocephalic, atraumatic. Eye: Normal conjunctiva, PERRL. Throat: Oral mucosa dry. No obvious lesions in oropharynx. Cardiovascular: Regular rate and rhythm, no murmur, +S1/S2. Respiratory: Lungs are clear to auscultation, respirations unlabored, no crackles, no wheezing. Gastrointestinal: Soft, nontender, non-distended. No guarding or rebound tenderness. Extremities: Left lower extremity trace pitting edema up to knee with slight pain on palpation. 2+ radial pulse bilaterally, 2+ pedal pulse bilaterally. Neuro: No focal deficits observed. Conversant, moving all extremities. No overt cerebellar signs/incoordination. Psychiatric: Mostly noncooperative, flat affect. Results: Labs 10/14/25 05:02 10/14/25 05:02 Quality Measures Quality Measures VTE prophylaxis Advance care planning discussed with:: patient Medications Home Medications and Allergies Home Medications ?Medication ?Instructions ?Recorded ?Confirmed ?Type levetiracetam 500 mg tablet 1,000 mg PO BID 07/04/23 1 12/14/24 History lisinopril 20 mg tablet 20 mg PO DAILY 07/04/2301/06 History aspirin 81 mg tablet 81 mg PO QDAY 09/17/2510/13 History Held on 09/17/25. Instructions: Resume on 09/18/25. carbamazepine 300 mg 300 mg PO Q12H 09/17/2501/06 History capsule,extended release [id number] amlodipine 10 mg tablet 10 mg PO QDAY 10/13/2510/13 History gabapentin 300 mg capsule 300 mg PO TID 10/13/2510/13 History hydrocodone 10 mg-acetaminophen 1 tab PO Q8H PRN pain 10/13/25 10/13/25 History 325 mg tablet losartan 50 mg tablet 50 mg PO QDAY 10/13/2510/13 History methocarbamol 750 mg tablet 750 mg PO QID 10/13/2501/06 History mirtazapine 15 mg tablet 15 mg PO HS 10/13/25 5 History montelukast 10 mg tablet 10 mg PO QPM 10/13/25 History (Singulair) ondansetron 4 mg disintegrating 4 mg PO Q8H PRN nausea and vomiting 10/13/25 10/13/25 History tablet polyethylene glycol 3350 17 gram 17 g PO BID 10/13/25 10/13/25 History oral powder packet (Miralax) Allergies Allergy/AdvReac Type Severity Reaction Status Date / Time lactose Allergy Unknown Diarrhea Verified 10/05/25 10:54 Visit Medications Acetaminophen (Acetaminophen 325 Mg Tablet) 650 mg PO Q6H PRN PRN Reason: Fever >101.5 or pain 1-3 Stop: 11/12/25 22:28 Amlodipine Besylate (Amlodipine Besylate 5 Mg Tablet) 10 mg PO QDAY [facility] Stop: 11/13/25 08:59 Carbamazepine (Carbamazepine 100 Mg Chew) 300 mg PO TID AYDEE Stop: 11/13/25 05:59 Enoxaparin Sodium (Enoxaparin Sod Inj 40 Mg/0.4 Ml Syringe) 40 mg SC QDAY AYDEE Stop: 10/28/25 08:59 Gabapentin (Gabapentin 300 Mg Capsule) 300 mg PO TID AYDEE Stop: 11/13/25 05:59 Levetiracetam (Levetiracetam Inj 100 Mg/Ml Vial 5ml) 1,500 mg IVP Q12HR AYDEE Stop: 11/13/25 08:59 Losartan Potassium (Losartan Potassium 25 Mg Tablet) 50 mg PO QDAY AYDEE Stop: 11/13/25 08:59 Assessment & Plan Plan This patient is an 79-year-old male with a history of TBI, seizures, and right apical lung mass status postbiopsy 09/17/2025 (negative for malignancies) who initially presented to [facility] ED on 10/05/2025 for worsening back pain. The patient was transferred to [facility] after thoracic spine MRI found left thoracic mass at the level of T4-T6 vertebral bodies, and is transferred back to [facility] on 10/13 after posterior thoracic decompression and fusion performed on 10/07. #Left thoracic mass, T4-T6, s/p posterior thoracic decompression and fusion This patient was transferred to [facility] for neurosurgical management of a thoracic mass that was invading into the patient's spinal cord, resulting in spinal cord compression. Patient is status post posterior thoracic decompression and fusion of spinal cord from T3 to T8 performed by Dr. Friedman at [facility] on 10/07. The patient initially had a drain placed, however this was removed by the patient on 10/13. The patient is transferred back to [facility] for further management as the patient has been cleared by neurological surgery services with recommendations to follow-up outpatient. Diagnostic: CT chest/abdomen/pelvis on 10/05/2025 shows a large soft tissue mass measuring about 8 x 6 cm at the T5-T6 level noted to be destroying much of the vertebral bodies and extending to the spinal canal with impingement on the thoracic cord Thoracic spine MRI on 10/05/2025 shows a 0.3 x 5.1 cm tumor replacing the T5-T6 vertebral bodies with severe compression of the thoracic cord at T5 Per records from [facility], spinal involvement includes T4-T6 Per records from [facility], patient is status post posterior thoracic decompression and spinal fusion of spinal cord from T3-T8 performed by Dr. Friedman at [facility] on 10/07 Per records from [facility], CT head with contrast (patient did not tolerate MRI of head) negative for malignant invasion to brain Treatment: Patient to follow-up with outpatient neurosurgery Physical therapy referral ordered Wound care referral ordered Follow-up with [facility] regarding left thoracic mass pathology report Neurochecks every 4 hours Pain control with oxycodone IR 5 mg every 4 hours as needed for moderate pain Dilaudid 1 mg IV every 4 hours as needed for severe pain #L4-L5 severe acquired spinal stenosis As noted on imaging taken before transfer to [facility]. Diagnostic: MRI lumbar spine on 10/05/2025 showed grade 1 anterolisthesis of L4 on L5 with 6 mm central lumbar disc bulge and prominent facet arthropathy, suggesting severe acquired spinal stenosis of L4-L5, postcontrast does not demonstrate conus medullaris or cauda equina enhancement Treatment: Patient to follow-up with outpatient neurosurgery #Right renal mass Patient noted to have a heterogenously enhancing mass in the right kidney per records from [facility] that was not identified from previous imaging performed. Mass size was measured up to 5.8 cm and was noted to be compatible with renal cell carcinoma per report from [facility]. Diagnostic: Per low-dose CT lung on 08/04/2025, a solid mass on the anterior right kidney was noted, size measuring at least 5.8 cm Treatment: Upload radiology report imaging from [facility] to [facility] system Consider repeat CT abdomen/pelvis with contrast for further assessment of right renal mass Consider CT biopsy of right renal mass for pathology assessment #Right upper lobe lung mass Patient noted to have right apical lung mass that was previously biopsied with pathology report on 09/17/2025 with no malignancy identified. Diagnostic: Low-dose CT lung on 08/04/2025 found a 3.7 cm pulmonary mass in the right upper lobe with multiple additional nodules Status post CT-guided lung biopsy on 09/17/2025, which found no malignancy on pathology report Interval increase in right apical lung mass size to 4.1 cm with spiculated margins as noted on CT chest/abdomen/pelvis on 10/05/2025 CT chest/abdomen/pelvis on 10/01/2025 does note an additional 18 mm pulmonary mass in the right apex not identified on low-dose CT lung on 08/04/2025 PET scan performed 09/29/2025 identified 3 hypermetabolic pulmonary masses in the right apex and hypermetabolic spiculated pulmonary mass in the right upper lobe measuring 4.1 x 3.6 cm Treatment: Cocci serology ordered, pending Upload radiology report imaging from [facility] to [facility] system to assess for any interval changes in size Consider hematology oncology consultation #Seizure disorder Patient noted to have his history of seizures and takes Keppra 1500 mg twice daily and carbamazepine ER 300 mg twice daily for management at home. Treatment: Keppra 1500 mg IV twice daily Resumed home carbamazepine ER 300 mg twice daily Ativan 2 mg every 4 hours IV as needed for seizures Seizure precautions Neurochecks every 4 hours #COPD Patient noted to have a history of COPD. Patient takes montelukast at home. Treatment: Singulair 10 mg nightly DuoNebs every 2 hours as needed for shortness of breath or wheeze #Hypertension, primary Patient noted to have a history of hypertension. Per records from [facility], patient is unaware of what medications he takes at home for his hypertension. Treatment: Amlodipine 10 mg daily Losartan 50 mg daily #Decreased oral intake Patient noted to have decreased oral intake since his surgery on 10/07. Patient was initially had NG tube placed for tube feeds, however the patient removed his NG tube on 10/12. Per [facility] records, the patient was eating outside food brought by family and seem to be consuming about 25% of his meals. Treatment: Regular diet Continue mirtazapine 15 mg nightly as started by [facility] Referral to registered dietitian DVT Prophylaxis: Lovenox GI Prophylaxis: N/A Bowel: Miralax Diet: Regular Cardona: N/A Lines: N/A Antibiotics: N/A Code Status: FULL Reason for Hospitalization: Transfer back from neurosurgical surgery services Other Barriers to Discharge: Pathology report Patient plan of care was discussed with the senior resident Dr. Kraft (PGY-2) and attending physician Dr. Reeves. Zeeshan Magaña, PGY1
--- NOTE | 2025-10-13 22:51 | PC.NURSE ---
MD Magaña came and checked on the pt.
[2025-10-14] VITALS (9 sets, daily range): BP systolic 110–153; BP diastolic 55–69; PULSE 68–95; RESP 16–96; TEMP 36.7–37.4; O2SAT 95–98; BMI 21.2
--- NOTE | 2025-10-14 03:57 | XR_ITS ---
Examination: Duplex scan of the lower extremity, unilateral left Date and time of exam: October 14, 2025, 0244 hours INDICATIONS: Altered mental status, leg pain and swelling this week Technique: Duplex scan of the extremity veins using B-mode/grayscale imaging and Doppler spectral analysis and color flow Attention is directed to internal echogenicity, compression and augmentation involving these veins, color flow assessment, spectral analysis Findings: Positive for acute thrombus involving the right common femoral, proximal superficial femoral veins Popliteal peroneal posterior tibial veins are open IMPRESSION: Positive for acute thrombus involving the right common femoral and proximal superficial femoral veins
--- NOTE | 2025-10-14 04:02 | PC.NURSE ---
[facility] 0200 to 0348.
[2025-10-14] MEDS: GABAPENTIN 300 MG CAPSULE PO ×3 (05:18→22:21)
--- NOTE | 2025-10-14 05:43 | PRELIM_ITS ---
Left lower extremity venous Doppler ultrasound. October 14, 2025 at 0244 hours Clinical history: Suspicious for deep vein thrombosis. Technique: Duplex scan of the left lower extremity deep venous systems was performed utilizing 2D grayscale imaging, Doppler spectral analysis and color flow Doppler and with compression. Comparison: No prior study is available for comparison. Findings: Marks scale, color flow and spectral Doppler evaluation of the left lower extremity deep veins were performed. No fluid collection is demonstrated on the submitted images. There is a PICC line in the femoral vein. There is nonocclusive thrombus around the PICC line in the proximal femoral vein extending into the common femoral vein. The mid and distal femoral vein, popliteal, peroneal, posterior tibial and greater saphenous veins are patent. There is thickening of the greater saphenous vein wall, which may represent prior thrombosis. Impression: Nonocclusive thrombus in the proximal femoral vein around the PICC line, extending into the common femoral vein. Discussion Details: Results verbally communicated to Elpidio Lentz RN at 07:24 AM ET 10/14/2025. A call back number was provided to facilitate a direct physician to physician communication. Report Electronically Signed By: Collin Reyes 10/14/2025 5:42:51 AM [EST]
[2025-10-14 06:33] LABS: Basophils # (Auto) 0.0 Thou/mm3 (0.0-0.2); Basophils % (Auto) 0 % (0-2.5); Eosinophils # (Auto) 0.2 Thou/mm3 (0.0-0.5); Eosinophils % (Auto) 3 % (0-10); Hematocrit 23.9 % (41.0-53.0); Immature Granulocytes Auto 0.06 Thou/mm3 (0.00-0.00); Lymphocytes # (Auto) 1.0 Thou/mm3 (1.0-4.8); Lymphocytes % (Auto) 12 % (10-50); Mean Corpuscular HGB Conc 33.5 g/dl (31.0-37.0); Mean Corpuscular Hemoglobin 30.3 pg (25.0-35.0); Mean Corpuscular Volume 91 fL (80-100); Monocytes # (Auto) 1.2 Thou/mm3 (0.0-0.8); Monocytes % (Auto) 13 % (0-12); Neutrophils # (Auto) 6.4 Thou/mm3 (1.8-7.7); Neutrophils % (Auto) 72 % (37-80); Nucleated Red Blood Cell # 0.00 Thou/mm3 (0.00-0.00); Nucleated Red Blood Cell % 0 /100 WBC (0); Platelet Count 229 Thou/mm3 (140-440); RDW Standard Deviation 49.8 fL (35.1-43.9); Red Blood Count 2.64 Miln/mm3 (4.50-5.90); White Blood Count 8.9 Thou/mm3 (3.8-10.6)
[2025-10-14 06:34] LABS: Hemoglobin 8.0 g/dL (13.5-16.0)
[2025-10-14 06:38] LABS: INR 1.0 (0.9-1.3); Partial Thromboplastin Time 33.3 Seconds (22.0-36.0); Prothrombin Time 10.9 Seconds (9.0-12.2)
[2025-10-14] MEDS: HEPARIN SOD INJ 5000 UNIT/ML VIAL 4500 UNIT IV (06:51)
[2025-10-14 06:52] LABS: Alanine Aminotransferase 23 U/L (10-49); Albumin, Serum 3.0 gm/dL (3.4-4.8); Albumin/Globulin Ratio 1.6 (1.2-2.2); Alkaline Phosphatase 84 U/L (46-116); Anion Gap 9 (7-16); Aspartate Amino Transferase 29 U/L (0-34); BUN/Creatinine Ratio 18 Ratio (12-20); Bilirubin,Total 0.4 mg/dL (0.3-1.2); Blood Urea Nitrogen 14 mg/dL (9-23); Calcium 7.6 mg/dL (8.3-10.6); Calcium (Corrected) 8.4 mg/dL (8.5-10.1); Carbon Dioxide 23.6 mMol/L (20.0-31.0); Chloride 106 mMol/L (98-107); Creatinine (Component) 0.8 mg/dL (0.6-1.3); Estimated Creatinine Clearance 57.6 mL/min (>60); Globulin 1.9 gm/dL (2.3-3.5); Glucose 98 mg/dL (74-106); Magnesium 1.6 mg/dL (1.6-2.6); Osmolality,Calculated 278 (275-295); Phosphorous 3.1 mg/dL (2.4-5.1); Potassium 3.8 mMol/L (3.4-5.1); Sodium 139 mMol/L (136-145); Total Protein 4.9 gm/dL (5.7-8.2); eGFR > 60 See Note
[2025-10-14] MEDS: Heparin/D5w 25K 250 ML Ivpb 25,000 UNIT/250 ML BAG 10.124 UNIT IV (06:52)
[2025-10-14] MEDS: POLYETHYLENE GLYCOL 17 GM PACKET PO ×2 (09:21→20:41)
[2025-10-14] MEDS: levETIRAcetam INJ 100 MG/ML VIAL 5ML 1500 MG IVP ×2 (09:21→22:14)
[2025-10-14] MEDS: LOSARTAN POTASSIUM 25 MG TABLET 50 MG PO (09:23)
[2025-10-14] MEDS: oxyCODONE HCL 5 MG IR TAB PO (09:32)
[2025-10-14] MEDS: NICOTINE PATCH 14 MG/24 HR PATCH.TD24 TOP (09:48)
--- NOTE | 2025-10-14 11:14 | PC.SS ---
Zak Salmon is a 79 year old male admitted to [facility] T4-6 Mass S/P posterior thoracic decompression. SS conducted bedside contact with the pt and his family. and DM Annamaria Salmon [phone] and dtr Mary Salmon [phone]. Prior to admission to hospital pt was independent with all needs, no need for DME. DC options discussed and pt needs rehab services. Pt family #1 choice is [facility], they do not wish to send referral to [facility]. Pts PCP is Lee Leon last visit was last week. SNF referral to be submitted. Pt will require auth and is pending PT eval but due to DVT, PT is on hold. SS will remain available for any additional needs or concerns. DC plan: SNF/Rehab DM: /Dtr PCP: Lee
--- NOTE | 2025-10-14 11:28 | PC.SS ---
SS submitted SNF referral via [facility], pt #1 choice is [facility]
--- NOTE | 2025-10-14 11:30 | ESPR_ITS ---
<Statement entered by Siva Almonte MD - 10/26/25 09:17> I reviewed above note and agree with findings and plans. I have also personally examined the patient with medicine team and went over assessment and plan with medical team including intern brand and resident physician. <Statement entered by Damian Mckinney MD - 10/14/25 15:30> In summary, 79-year-old male with history of seizure, TBI, nonmalignant apical lung mass who is a transfer back from [facility] after undergoing thoracic decompression of left thoracic mass. Currently doing well. Pain appears controlled, pending physical therapy and rehab placement. LE duplex showed acute thrombus of the right common femoral and proximal superficial femoral vein, and he was started on HEPARIN drip overnight. However, we touch base with neurovascular surgery who advised against oral anticoagulation at least until 30 days postop. Continued on HEPARIN drip which will be stopped at midnight in preparation for IVC filter placement tomorrow. I?ve reviewed the note and agree with this assessment and plan, with the exceptions outlined above. I personally went over the labs, imaging, home medications, and prior records, and examined the patient. The case was also reviewed with the attending physician. Please note: this document was transcribed using voice recognition technology; minor inaccuracies may be present. Damian Mckinney, DO PGY II Documentation for date of: 10/14/25 Subjective Subjective Interval history: Patient was seen at the bedside this morning and appeared uncomfortable, requesting repositioning due to back pain, which is expected following thoracic decompression surgery. After receiving pain medication, the patient reported that the pain is now well-controlled. A physical therapy referral has been placed, and rehabilitation placement is pending. A lower extremity duplex ultrasound was ordered by the night team due to leg pain and swelling, which revealed an acute thrombus in the right common femoral and proximal superficial femoral veins. The patient was started on a heparin drip overnight. Touch based with Dr. Friedman at [facility], the neurosurgeon who performed the thoracic decompression surgery, it was advised to avoid oral anticoagulation for at least 30 days post-op. The heparin drip will be discontinued at midnight, and the patient will remain NPO after midnight for IVC filter placement tomorrow. Exam Vital Signs Temp Pulse Resp BP Pulse Ox O2 Del Method 98.6 F 83 17 153/69 H 98 Room Air 10/14/25 08:00 10/14/25 09:23 10/14/25 08:00 10/14/25 09:23 10/14/25 08:00 10/14/25 08:00 Narrative Exam Physical Exam General: Awake and in no acute distress. Conversational and non-toxic appearing. HEENT: Normocephalic, atraumatic, mucous membranes moist. Heart: Regular rate and rhythm, no murmurs. Non-labored respirations, symmetric chest rise, no use of accessory muscles. Lungs: Clear to auscultation with no wheezing or crackles. Abdomen: Soft, nondistended, nontender. No guarding or rebound tenderness. Neurologic: Alert and oriented x3, no gross neurological deficit, and patient able to move all 4 extremities. Extremities: Left lower extremity trace pitting edema up to the knee. 2+ radial pulse bilaterally, 2+ pedal pulse bilaterally. Neuro: No focal deficits observed. Conversant, moving all extremities. No overt cerebellar signs/incoordination. Skin: No rash or ecchymoses. Tattoos. Psychiatric: Cooperative, appropriate mood and affect Objective Labs 10/14/25 05:02 10/14/25 05:02 Labs: Laboratory Results - last 24 hr 10/14/25 05:02 WBC 8.9 RBC 2.64 L Hgb 8.0 L Hct 23.9 L MCV 91 MCH 30.3 MCHC 33.5 RDW Std Deviation 49.8 H Plt Count 229 D Neut % (Auto) 72 Lymph % (Auto) 12 Nolan % (Auto) 13 H Eos % (Auto) 3 Baso % (Auto) 0 Neut # (Auto) 6.4 Lymph # (Auto) 1.0 Nolan # (Auto) 1.2 H Eos # (Auto) 0.2 Baso # (Auto) 0.0 Immature Gran # (Auto) 0.06 H Absolute Nucleated RBC 0.00 Immature Gran % 1 H Nucleated RBC % 0 PT 10.9 INR 1.0 APTT 33.3 Sodium 139 Potassium 3.8 Chloride 106 Carbon Dioxide 23.6 Anion Gap 9 BUN 14 Creatinine 0.8 Estim Creat Clear Calc 57.6 L eGFR > 60 BUN/Creatinine Ratio 18 Glucose 98 Calculated Osmolality 278 Calcium 7.6 L Corrected Calcium 8.4 L Phosphorus 3.1 Magnesium 1.6 Total Bilirubin 0.4 AST 29 ALT 23 Alkaline Phosphatase 84 Total Protein 4.9 L Albumin 3.0 L Globulin 1.9 L Albumin/Globulin Ratio 1.6 Quality Measures Quality Measures VTE prophylaxis Advance care planning discussed with:: patient Assessment & Plan Assessment Current Active Medications: Generic Name Dose Route Start Last Admin Trade Name Freq PRN Reason Stop Dose Admin Acetaminophen 650 mg 10/13/25 22:29 Acetaminophen 325 Mg Tablet PO 11/12/25 22:28 Q6H PRN Fever >101.5 or pain 1-3 Albuterol/Ipratropium 3 ml 10/14/25 01:09 Albuterol/Ipratropium (Duoneb) Rt Rosalina 3 Ml Nebu INH 11/13/25 01:08 Q2HR PRN SHORTNESS OF BREATH OR WHEEZE Amlodipine Besylate 10 mg 10/14/25 09:00 10/14/25 09:23 Amlodipine Besylate 5 Mg Tablet PO 11/13/25 08:59 10 mg QDAY AYDEE Administration Carbamazepine 300 mg 10/14/25 09:00 10/14/25 09:23 Carbamazepine 100 Mg Chew PO 11/13/25 08:59 300 mg BID AYDEE Administration Gabapentin 300 mg 10/14/25 06:00 10/14/25 05:18 Gabapentin 300 Mg Capsule PO 11/13/25 05:59 300 mg TID AYDEE Administration Hydromorphone HCl 1 mg 10/13/25 22:36 Hydromorphone Inj 2 Mg/Ml Vial IVP 10/18/25 22:35 Q4HR PRN Severe pain 7-10 Heparin Sodium/Dextrose 25,000 unit in 250 mls @ 10.124 mls/hr 10/14/25 06:45 10/14/25 06:52 Heparin In D5w Ivpb IV 10/28/25 06:44 18 units/kg/hr .Q24H AYDEE 10.124 mls/hr Protocol Administration 18 UNITS/KG/HR Levetiracetam 1,500 mg 10/14/25 09:00 10/14/25 09:21 Levetiracetam Inj 100 Mg/Ml Vial 5ml IVP 11/13/25 08:59 1,500 mg Q12HR AYDEE Administration Lorazepam 2 mg 10/13/25 22:36 Lorazepam 2 Mg/Ml Vial IVP 10/18/25 22:35 Q4H PRN SEIZURES Losartan Potassium 50 mg 10/14/25 09:00 10/14/25 09:23 Losartan Potassium 25 Mg Tablet PO 11/13/25 08:59 50 mg QDAY AYDEE Administration Methocarbamol 750 mg 10/14/25 06:00 10/14/25 05:19 Methocarbamol 500 Mg Tablet PO 11/13/25 05:59 750 mg QID AYDEE Administration Mirtazapine 15 mg 10/14/25 21:00 Mirtazapine 15 Mg Tablet PO 11/13/25 20:59 HS AYDEE Montelukast Sodium 10 mg 10/14/25 21:00 Montelukast Sodium 10 Mg Tablet PO 11/13/25 20:59 HS AYDEE Nicotine 14 mg 10/14/25 09:00 10/14/25 09:48 Nicotine Patch 14 Mg/24 Hr Patch.Td24 TOP 11/13/25 08:59 14 mg QDAY AYDEE Administration Oxycodone HCl 5 mg 10/13/25 22:36 10/14/25 09:32 Oxycodone Hcl 5 Mg Ir Tab PO 10/18/25 22:35 5 mg Q6HR PRN Administration PAIN SCALE 4-6 (Moderate Polyethylene Glycol 17 gm 10/14/25 09:00 10/14/25 09:21 Polyethylene Glycol 17 Gm Packet PO 11/13/25 08:59 17 gm BID AYDEE Administration Plan 79-year-old male with a history of TBI, seizures, and right apical lung mass (negative biopsy 09/17/2025) presented with worsening back pain and was transferred to [facility] for thoracic mass and spinal cord compression at T4-T6. He underwent posterior thoracic decompression and fusion from T3-T8 on 10/07/2025, and was transferred back to [facility] on 10/13/2025 for further management. #Left thoracic mass, T4-T6, s/p posterior thoracic decompression and fusion #L4-L5 severe acquired spinal stenosis - Patient presented to [facility] on 10/05 and was transferred to [facility] for neurosurgical management of a left thoracic mass at the T5-T6 level causing spinal cord compression - At [facility], patient underwent posterior thoracic decompression and spinal fusion from T3-T8 on 10/[address] Friedman. - Post-operative course included the placement of a drain, which was removed by the patient on 10/13/2025. - Patient was cleared by neurosurgery and transfer back to [facility] for further management. - CT chest/abdomen/pelvis 10/05/2025 shows a large soft tissue mass measuring about 8 x 6 cm at the T5-T6 level noted to be destroying much of the vertebral bodies and extending to the spinal canal with impingement on the thoracic cord - Thoracic spine MRI 10/05/2025 showed 8.3 x 5.1 cm tumor mass replacing the T5- T6 vertebral bodies, producing severe thoracic cord compression at the T5 level. - Lumbar spine MRI 10/05/2025 showed L4-L5 severe acquired spinal stenosis. - CT CAP 10/05/2025 showed a large soft tissue mass 8 x 6 cm, T5-T6 level, destroying much of these vertebral bodies and extending into the spinal canal likely impinging upon the thoracic cord. - Per records from [facility], CT head with contrast (patient did not tolerate MRI of head) negative for malignant invasion to brain. - Status post posterior thoracic decompression and spinal fusion of spinal cord from T3-T8 performed by Dr. Friedman at [facility] on 10/07. Plan * Patient to follow-up with outpatient neurosurgery. * Physical therapy referral ordered. * Wound care referral ordered. * Follow-up with [facility] regarding left thoracic mass pathology report. * Neurochecks every 4 hours. * Pain control with oxycodone IR 5 mg every 4 hours as needed for moderate pain Dilaudid 1 mg IV every 4 hours as needed for severe pain. * Rehab placement pending. * Follow-up with outpatient neurosurgery. #Acute deep vein thrombosis of the right common femoral and proximal superficial femoral veins - Identified on venous Doppler ultrasound performed on 10/14, which was ordered for leg pain and swelling. - Initiated on heparin drip for anticoagulation management. - Consulted with Dr. Friedman (neurosurgeon at [facility], who performed the thoracic decompression surgery), who recommended avoiding oral anticoagulation for at least 30 days post-operatively due to the patient's recent major vascular surgery and blood transfusion requirements after the surgery. Plan: * Discontinue Heparin drip at midnight. * NPO after midnight in preparation for IVC filter placement. * Monitor CBC. #Right renal mass - Heterogenously enhancing mass in the right kidney per records from [facility], with mass measuring up to 5.8cm and suggestive of renal cell carcinoma. - A low-dose CT 08/04/2025 here at [facility] showed solid mass on the anterior right kidney was noted, size measuring at least 5.8 cm. Plan: * Consider hematology oncology consult or further outpatient workup. #Right upper lobe lung mass - Low-dose CT lung on 08/04/2025 showed 3.7 cm pulmonary mass right upper lobe with multiple additional nodules. - Lung biopsy 09/17/2025 of right lung mass with pathology report on 09/17/2025 with no malignancy identified. - PET scan 09/29/2025 showed 3 hypermetabolic pulmonary mass right apex 18 x 12 mm, hypermetabolic spiculated pulmonary mass right upper lobe 4.1 x 3.6 cm compared to 3.7 x 3.[address] lung study 08/04/2025. - CT CAP 10/05/2025 showed 18 mm pulmonary mass right apex and 4.1 cm pulmonary mass spiculated margins right upper lobe. Plan: * Cocci serology ordered, pending. * Consider hematology oncology consult or further outpatient workup. #Seizure disorder Plan: * Resume home Keppra 1500 mg IV twice daily. * Resume home carbamazepine ER 300 mg twice daily. * Ativan 2 mg every 4 hours IV as needed for seizures. * Seizure precautions. * Neurochecks every 4 hours. #COPD Plan: * Resume Singulair 10 mg nightly. * DuoNebs every 2 hours as needed for shortness of breath or wheeze. #Hypertension, primary - Per records from [facility], patient is unaware of what medications he takes at home for his hypertension. Plan: * Amlodipine 10 mg daily. * Losartan 50 mg daily. #Postoperative reduced oral intake - Patient noted to have decreased oral intake since his surgery on 10/07. - Patient was initially had NG tube placed for tube feeds, however the patient removed his NG tube on 10/12. - Per [facility] records, the patient was eating outside food brought by family and seem to be consuming about 25% of his meals. Plan: * Referral to registered dietitian. * Continue mirtazapine 15 mg nightly as started by [facility]. Health Maintenance Disposition: med surg DVT prophylaxis: Lovenox GI prophylaxis: N/A Diet: regular CODE STATUS: FULL Patient plan of care was discussed with the senior resident, Dr. Mckinney, and attending physician, Dr. Almonte. Jyoti Sultana, DO PGY-1
--- NOTE | 2025-10-14 13:23 | PC.SS ---
PASRR LVL 1 downloaded and completed, no follow up needed
[2025-10-14 14:05] LABS: Cocci Serology, IgM Negative (Negative)
[2025-10-14 14:11] LABS: Partial Thromboplastin Time 52.4 Seconds (22.0-36.0)
--- NOTE | 2025-10-14 16:12 | PC.PT ---
PT Eval witheld, Patient has DVT and will need to initiate anti coagulation first before PT evaluation. RN made aware.
[2025-10-14] MEDS: MONTELUKAST SODIUM 10 MG TABLET PO (20:34)
[2025-10-14] MEDS: MIRTAZAPINE 15 MG TABLET PO (20:35)
[2025-10-14 22:07] LABS: Partial Thromboplastin Time 45.3 Seconds (22.0-36.0)
[2025-10-14] MEDS: HEPARIN SOD INJ 5000 UNIT/ML VIAL 2250 UNIT IV (23:40)
[2025-10-15] VITALS (13 sets, daily range): BP systolic 90–151; BP diastolic 61–78; PULSE 73–88; RESP 16–99; TEMP 36.2–37.5; O2SAT 95–100
--- NOTE | 2025-10-15 | XR_ITS ---
Examination: Fluoroscopy Selective catheterization inferior vena cava Ultrasound-guided venous access right common femoral vein. AP Abdomen, portable, single view Date: October 15, 2025, 1227 hours Informed consent provided. Time out performed Technique And Findings: Skin prepped over the right groin. 1 % Lidocaine administered for local anesthesia. Sterile drape applied. Maximum sterile barrier technique, hand hygiene, ultrasound sterile technique. Ultrasound utilized for localization right common femoral vein. Utilizing ultrasonographic guidance, puncture right common femoral vein with a 21-gauge needle. Placement 0.18 wire guide through the needle into the common femoral vein under fluoroscopic guidance. Placement 5 Polish introducer catheter over the wire guide. The patient's IVC filter was accidentally dropped on the 4. There are no additional IVC filter is in stock Impression: Incomplete study as above
[2025-10-15 06:00] LABS: Basophils # (Auto) 0.1 Thou/mm3 (0.0-0.2); Basophils % (Auto) 1 % (0-2.5); Eosinophils # (Auto) 0.2 Thou/mm3 (0.0-0.5); Eosinophils % (Auto) 3 % (0-10); Hematocrit 24.3 % (41.0-53.0); Immature Granulocytes Auto 0.08 Thou/mm3 (0.00-0.00); Lymphocytes # (Auto) 1.4 Thou/mm3 (1.0-4.8); Lymphocytes % (Auto) 16 % (10-50); Mean Corpuscular HGB Conc 32.5 g/dl (31.0-37.0); Mean Corpuscular Hemoglobin 30.0 pg (25.0-35.0); Mean Corpuscular Volume 92 fL (80-100); Monocytes # (Auto) 1.3 Thou/mm3 (0.0-0.8); Monocytes % (Auto) 15 % (0-12); Neutrophils # (Auto) 5.4 Thou/mm3 (1.8-7.7); Neutrophils % (Auto) 64 % (37-80); Nucleated Red Blood Cell # 0.00 Thou/mm3 (0.00-0.00); Nucleated Red Blood Cell % 0 /100 WBC (0); Platelet Count 228 Thou/mm3 (140-440); RDW Standard Deviation 50.4 fL (35.1-43.9); Red Blood Count 2.63 Miln/mm3 (4.50-5.90); White Blood Count 8.5 Thou/mm3 (3.8-10.6)
[2025-10-15 06:17] LABS: Alanine Aminotransferase 24 U/L (10-49); Albumin, Serum 3.0 gm/dL (3.4-4.8); Albumin/Globulin Ratio 1.6 (1.2-2.2); Alkaline Phosphatase 94 U/L (46-116); Anion Gap 9 (7-16); Aspartate Amino Transferase 29 U/L (0-34); BUN/Creatinine Ratio 20 Ratio (12-20); Bilirubin,Total 0.2 mg/dL (0.3-1.2); Blood Urea Nitrogen 18 mg/dL (9-23); Calcium 7.5 mg/dL (8.3-10.6); Calcium (Corrected) 8.3 mg/dL (8.5-10.1); Carbon Dioxide 26.3 mMol/L (20.0-31.0); Chloride 106 mMol/L (98-107); Creatinine (Component) 0.9 mg/dL (0.6-1.3); Estimated Creatinine Clearance 51.2 mL/min (>60); Globulin 1.9 gm/dL (2.3-3.5); Glucose 133 mg/dL (74-106); Magnesium 1.8 mg/dL (1.6-2.6); Osmolality,Calculated 285 (275-295); Phosphorous 3.0 mg/dL (2.4-5.1); Potassium 3.5 mMol/L (3.4-5.1); Sodium 141 mMol/L (136-145); Total Protein 4.9 gm/dL (5.7-8.2); eGFR > 60 See Note
[2025-10-15 07:53] LABS: Hemoglobin 7.9 g/dL (13.5-16.0)
[2025-10-15] MEDS: NICOTINE PATCH 14 MG/24 HR PATCH.TD24 TOP (08:10)
[2025-10-15] MEDS: levETIRAcetam INJ 100 MG/ML VIAL 5ML 1500 MG IVP ×2 (08:10→21:39)
[2025-10-15] MEDS: Magnesium Sulfate 2 GM Ivpb 2 GM/50 ML BAG IV (08:39)
[2025-10-15] MEDS: POTASSIUM CHL 10 mEq IVPB 10 MEQ/100 ML BAG 100 MEQ IV ×4 (08:39→14:54)
--- NOTE | 2025-10-15 10:05 | PC.NURSE ---
Patient was taken to labor and delivery nurse for procedure.
[2025-10-15 12:11] LABS: Cocci Serology, IgG Negative (Negative)
[2025-10-15] MEDS: LIDOCAINE INJ PF 1% 30 ML VIAL 5 ML EPID (13:04)
[2025-10-15] MEDS: fentaNYL CIT INJ 50 mCg/ML AMP 2ML 25 MCG IVP (13:04)
--- NOTE | 2025-10-15 13:20 | PC.NURSE ---
Patient arrived from IR at 1320. Procedure was unsuccessful. Site is clean, dry and intact with no bleeding noted. Patient denied pain on arrival.
[2025-10-15] MEDS: oxyCODONE HCL 5 MG IR TAB PO (14:59)
[2025-10-15] MEDS: GABAPENTIN 300 MG CAPSULE PO ×2 (14:59→21:24)
--- NOTE | 2025-10-15 15:27 | PC.PT ---
PT ryne yancey, patient was picked for IVF filter this morning. Check ~1pm, patient still at the procedure. Will try again tomorrow.
--- NOTE | 2025-10-15 18:11 | ESPR_ITS ---
<Statement entered by Siva Almonte MD - 10/26/25 09:18> I reviewed above note and agree with findings and plans. I have also personally examined the patient with medicine team and went over assessment and plan with medical team including risk management internship and resident physician. <Statement entered by Damian Mckinney MD - 10/15/25 20:30> In summary, 79-year-old male with history of seizure, TBI, nonmalignant apical lung mass who is a transfer back from [facility] after undergoing thoracic decompression of left thoracic mass. Currently doing well. Pain appears controlled, pending physical therapy and rehab placement. LE duplex showed acute thrombus of the right common femoral and proximal superficial femoral vein, and he was started on HEPARIN drip overnight. However, we touch base with neurovascular surgery who advised against oral anticoagulation at least until 30 days postop. Shortly, attempt for IVC filter was unsuccessful today. Radiology will try again tomorrow. What is patient's symptoms are stable and pain is well- controlled. I?ve reviewed the note and agree with this assessment and plan, with the exceptions outlined above. I personally went over the labs, imaging, home medications, and prior records, and examined the patient. The case was also reviewed with the attending physician. Please note: this document was transcribed using voice recognition technology; minor inaccuracies may be present. Damian Mckinney DO PGY II Documentation for date of: 10/15/25 Subjective Subjective Interval history: No overnight events were reported. The patient was seen this morning at the bedside, sleeping comfortably, and has no new complaints at this time. Unsuccessful attempt made to place an IVC filter today. Patient has been started on a normal diet but will be kept NPO after midnight in preparation for the reattempt at IVC filter placement. A referral to physical therapy has been placed, and rehab placement is currently pending. Exam Vital Signs Temp Pulse Resp BP Pulse Ox O2 Del Method O2 Flow Rate 97.4 F 88 18 129/64 98 Nasal Cannula 2 10/15/25 16:00 10/15/25 16:00 10/15/25 16:00 10/15/25 16:00 10/15/25 16:00 10/15/25 13:12 10/15/25 13:12 Narrative Exam Physical Exam General: Awake and in no acute distress. Conversational and non-toxic appearing. HEENT: Normocephalic, atraumatic, mucous membranes moist. Heart: Regular rate and rhythm, no murmurs. Non-labored respirations, symmetric chest rise, no use of accessory muscles. Lungs: Clear to auscultation with no wheezing or crackles. Abdomen: Soft, nondistended, nontender. No guarding or rebound tenderness. Neurologic: Alert and oriented x3, no gross neurological deficit, and patient able to move all 4 extremities. Extremities: Left lower extremity trace pitting edema up to the knee. 2+ radial pulse bilaterally, 2+ pedal pulse bilaterally. Neuro: No focal deficits observed. Conversant, moving all extremities. No overt cerebellar signs/incoordination. Skin: No rash or ecchymoses. Tattoos. Psychiatric: Cooperative, appropriate mood and affect Objective Labs 10/15/25 04:50 10/15/25 04:50 Labs: Laboratory Results - last 24 hr 10/14/25 10/14/25 10/15/25 05:02 21:28 04:50 WBC 8.5 RBC 2.63 L Hgb 7.9 L Hct 24.3 L MCV 92 MCH 30.0 MCHC 32.5 RDW Std Deviation 50.4 H Plt Count 228 Neut % (Auto) 64 Lymph % (Auto) 16 Cole % (Auto) 15 H Eos % (Auto) 3 Baso % (Auto) 1 Neut # (Auto) 5.4 Lymph # (Auto) 1.4 Cole # (Auto) 1.3 H Eos # (Auto) 0.2 Baso # (Auto) 0.1 Immature Gran # (Auto) 0.08 H Absolute Nucleated RBC 0.00 Immature Gran % 1 H Nucleated RBC % 0 APTT 45.3 H Sodium 141 Potassium 3.5 Chloride 106 Carbon Dioxide 26.3 Anion Gap 9 BUN 18 Creatinine 0.9 Estim Creat Clear Calc 51.2 L eGFR > 60 BUN/Creatinine Ratio 20 Glucose 133 H Calculated Osmolality 285 Calcium 7.5 L Corrected Calcium 8.3 L Phosphorus 3.0 Magnesium 1.8 Total Bilirubin 0.2 L AST 29 ALT 24 Alkaline Phosphatase 94 Total Protein 4.9 L Albumin 3.0 L Globulin 1.9 L Albumin/Globulin Ratio 1.6 Coccidioides IgG Ab Negative Quality Measures Quality Measures VTE prophylaxis Advance care planning discussed with:: patient Assessment & Plan Assessment Current Active Medications: Generic Name Dose Route Start Last Admin Trade Name Nimo PRN Reason Stop Dose Admin Acetaminophen 650 mg 10/13/25 22:29 Acetaminophen 325 Mg Tablet PO 11/12/25 22:28 Q6H PRN Fever >101.5 or pain 1-3 Albuterol/Ipratropium 3 ml 10/14/25 01:09 Albuterol/Ipratropium (Duoneb) Rt Rosalina 3 Ml Nebu INH 11/13/25 01:08 Q2HR PRN SHORTNESS OF BREATH OR WHEEZE Amlodipine Besylate 10 mg 10/14/25 09:00 10/15/25 08:01 Amlodipine Besylate 5 Mg Tablet PO 11/13/25 08:59 Not Given QDAY AYDEE Carbamazepine 300 mg 10/14/25 09:00 10/15/25 08:02 Carbamazepine 100 Mg Chew PO 11/13/25 08:59 Not Given BID AYDEE Gabapentin 300 mg 10/14/25 06:00 10/15/25 14:59 Gabapentin 300 Mg Capsule PO 11/13/25 05:59 300 mg TID AYDEE Administration Hydromorphone HCl 1 mg 10/13/25 22:36 Hydromorphone Inj 2 Mg/Ml Vial IVP 10/18/25 22:35 Q4HR PRN Severe pain 7-10 Levetiracetam 1,500 mg 10/14/25 09:00 10/15/25 08:10 Levetiracetam Inj 100 Mg/Ml Vial 5ml IVP 11/13/25 08:59 1,500 mg Q12HR AYDEE Administration Lorazepam 2 mg 10/13/25 22:36 Lorazepam 2 Mg/Ml Vial IVP 10/18/25 22:35 Q4H PRN SEIZURES Losartan Potassium 50 mg 10/14/25 09:00 10/15/25 08:02 Losartan Potassium 25 Mg Tablet PO 11/13/25 08:59 Not Given QDAY AYDEE Methocarbamol 750 mg 10/14/25 06:00 10/15/25 17:11 Methocarbamol 500 Mg Tablet PO 11/13/25 05:59 Not Given QID AYDEE Mirtazapine 15 mg 10/14/25 21:00 10/14/25 20:35 Mirtazapine 15 Mg Tablet PO 11/13/25 20:59 15 mg HS AYDEE Administration Montelukast Sodium 10 mg 10/14/25 21:00 10/14/25 20:34 Montelukast Sodium 10 Mg Tablet PO 11/13/25 20:59 10 mg HS AYDEE Administration Nicotine 14 mg 10/14/25 09:00 10/15/25 08:10 Nicotine Patch 14 Mg/24 Hr Patch.Td24 TOP 11/13/25 08:59 14 mg QDAY AYDEE Administration Oxycodone HCl 5 mg 10/13/25 22:36 10/15/25 14:59 Oxycodone Hcl 5 Mg Ir Tab PO 10/18/25 22:35 5 mg Q6HR PRN Administration PAIN SCALE 4-6 (Moderate Polyethylene Glycol 17 gm 10/14/25 09:00 10/15/25 08:02 Polyethylene Glycol 17 Gm Packet PO 11/13/25 08:59 Not Given BID AYDEE Plan 79-year-old male with a history of TBI, seizures, and right apical lung mass (negative biopsy 09/17/2025) presented with worsening back pain and was transferred to [facility] for thoracic mass and spinal cord compression at T4-T6. He underwent posterior thoracic decompression and fusion from T3-T8 on 10/07/2025, and was transferred back to [facility] on 10/13/2025 for further management. #Left thoracic mass, T4-T6, s/p posterior thoracic decompression and fusion #L4-L5 severe acquired spinal stenosis - Patient presented to [facility] on 10/05 and was transferred to [facility] for neurosurgical management of a left thoracic mass at the T5-T6 level causing spinal cord compression - At [facility], patient underwent posterior thoracic decompression and spinal fusion from T3-T8 on 10/[address] Friedman. - Post-operative course included the placement of a drain, which was removed by the patient on 10/13/2025. - Patient was cleared by neurosurgery and transfer back to [facility] for further management. - CT chest/abdomen/pelvis 10/05/2025 shows a large soft tissue mass measuring about 8 x 6 cm at the T5-T6 level noted to be destroying much of the vertebral bodies and extending to the spinal canal with impingement on the thoracic cord - Thoracic spine MRI 10/05/2025 showed 8.3 x 5.1 cm tumor mass replacing the T5- T6 vertebral bodies, producing severe thoracic cord compression at the T5 level. - Lumbar spine MRI 10/05/2025 showed L4-L5 severe acquired spinal stenosis. - CT CAP 10/05/2025 showed a large soft tissue mass 8 x 6 cm, T5-T6 level, destroying much of these vertebral bodies and extending into the spinal canal likely impinging upon the thoracic cord. - Per records from [facility], CT head with contrast (patient did not tolerate MRI of head) negative for malignant invasion to brain. - Status post posterior thoracic decompression and spinal fusion of spinal cord from T3-T8 performed by Dr. Friedman at [facility] on 10/07. Plan * Patient to follow-up with outpatient neurosurgery. * Physical therapy referral ordered. * Wound care referral ordered. * Follow-up with [facility] regarding left thoracic mass pathology report. * Neurochecks every 4 hours. * Pain control with oxycodone IR 5 mg every 4 hours as needed for moderate pain Dilaudid 1 mg IV every 4 hours as needed for severe pain. * Rehab placement pending. * Follow-up with outpatient neurosurgery. #Acute deep vein thrombosis of the right common femoral and proximal superficial femoral veins - Identified on venous Doppler ultrasound performed on 10/14, which was ordered for leg pain and swelling. - Initiated on heparin drip for anticoagulation management. - Consulted with Dr. Friedman (neurosurgeon at [facility], who performed the thoracic decompression surgery), who recommended avoiding oral anticoagulation for at least 30 days post-operatively due to the patient's recent major vascular surgery and blood transfusion requirements after the surgery. Plan: * Discontinue Heparin drip at midnight. * NPO after midnight in preparation for the reattempt at IVC filter placement. * Monitor CBC. #Right renal mass - Heterogenously enhancing mass in the right kidney per records from [facility], with mass measuring up to 5.8cm and suggestive of renal cell carcinoma. - A low-dose CT 08/04/2025 here at [facility] showed solid mass on the anterior right kidney was noted, size measuring at least 5.8 cm. Plan: * Consider hematology oncology consult or further outpatient workup. #Right upper lobe lung mass - Low-dose CT lung on 08/04/2025 showed 3.7 cm pulmonary mass right upper lobe with multiple additional nodules. - Lung biopsy 09/17/2025 of right lung mass with pathology report on 09/17/2025 with no malignancy identified. - PET scan 09/29/2025 showed 3 hypermetabolic pulmonary mass right apex 18 x 12 mm, hypermetabolic spiculated pulmonary mass right upper lobe 4.1 x 3.6 cm compared to 3.7 x 3.[address] lung study 08/04/2025. - CT CAP 10/05/2025 showed 18 mm pulmonary mass right apex and 4.1 cm pulmonary mass spiculated margins right upper lobe. - Cocci serology 10/14 negative. Plan: * Consider hematology oncology consult or further outpatient workup. #Seizure disorder Plan: * Resume home Keppra 1500 mg IV twice daily. * Resume home carbamazepine ER 300 mg twice daily. * Ativan 2 mg every 4 hours IV as needed for seizures. * Seizure precautions. * Neurochecks every 4 hours. #COPD Plan: * Resume Singulair 10 mg nightly. * DuoNebs every 2 hours as needed for shortness of breath or wheeze. #Hypertension, primary - Per records from [facility], patient is unaware of what medications he takes at home for his hypertension. Plan: * Amlodipine 10 mg daily. * Losartan 50 mg daily. #Postoperative reduced oral intake - Patient noted to have decreased oral intake since his surgery on 10/07. - Patient was initially had NG tube placed for tube feeds, however the patient removed his NG tube on 10/12. - Per [facility] records, the patient was eating outside food brought by family and seem to be consuming about 25% of his meals. Plan: * Referral to registered dietitian. * Continue mirtazapine 15 mg nightly as started by [facility]. Health Maintenance Disposition: med surg DVT prophylaxis: Lovenox GI prophylaxis: N/A Diet: regular CODE STATUS: FULL Patient plan of care was discussed with the senior resident, Dr. Mckinney, and attending physician, Dr. Almonte. Jyoti Sultana, DO PGY-1
[2025-10-15] MEDS: MONTELUKAST SODIUM 10 MG TABLET PO (21:24)
[2025-10-15] MEDS: MIRTAZAPINE 15 MG TABLET PO (21:24)
[2025-10-15] MEDS: POLYETHYLENE GLYCOL 17 GM PACKET PO (21:35)
[2025-10-16] VITALS (13 sets, daily range): BP systolic 110–150; BP diastolic 55–98; PULSE 62–89; RESP 12–99; TEMP 36.5–37.7; O2SAT 94–100
[2025-10-16 05:53] LABS: Basophils # (Auto) 0.0 Thou/mm3 (0.0-0.2); Basophils % (Auto) 1 % (0-2.5); Eosinophils # (Auto) 0.2 Thou/mm3 (0.0-0.5); Eosinophils % (Auto) 2 % (0-10); Hematocrit 24.0 % (41.0-53.0); Immature Granulocytes Auto 0.07 Thou/mm3 (0.00-0.00); Lymphocytes # (Auto) 1.2 Thou/mm3 (1.0-4.8); Lymphocytes % (Auto) 18 % (10-50); Mean Corpuscular HGB Conc 32.1 g/dl (31.0-37.0); Mean Corpuscular Hemoglobin 29.8 pg (25.0-35.0); Mean Corpuscular Volume 93 fL (80-100); Monocytes # (Auto) 1.0 Thou/mm3 (0.0-0.8); Monocytes % (Auto) 15 % (0-12); Neutrophils # (Auto) 4.3 Thou/mm3 (1.8-7.7); Neutrophils % (Auto) 64 % (37-80); Nucleated Red Blood Cell # 0.00 Thou/mm3 (0.00-0.00); Nucleated Red Blood Cell % 0 /100 WBC (0); Platelet Count 256 Thou/mm3 (140-440); RDW Standard Deviation 50.3 fL (35.1-43.9); Red Blood Count 2.58 Miln/mm3 (4.50-5.90); White Blood Count 6.8 Thou/mm3 (3.8-10.6)
[2025-10-16 06:00] LABS: Hemoglobin 7.7 g/dL (13.5-16.0)
[2025-10-16 06:09] LABS: INR 1.0 (0.9-1.3); Partial Thromboplastin Time 31.6 Seconds (22.0-36.0); Prothrombin Time 10.9 Seconds (9.0-12.2)
[2025-10-16 06:30] LABS: Alanine Aminotransferase 21 U/L (10-49); Albumin, Serum 2.8 gm/dL (3.4-4.8); Albumin/Globulin Ratio 1.6 (1.2-2.2); Alkaline Phosphatase 87 U/L (46-116); Anion Gap 9 (7-16); Aspartate Amino Transferase 25 U/L (0-34); BUN/Creatinine Ratio 21 Ratio (12-20); Bilirubin,Total 0.2 mg/dL (0.3-1.2); Blood Urea Nitrogen 21 mg/dL (9-23); Calcium 7.4 mg/dL (8.3-10.6); Calcium (Corrected) 8.4 mg/dL (8.5-10.1); Carbon Dioxide 24.3 mMol/L (20.0-31.0); Chloride 108 mMol/L (98-107); Creatinine (Component) 1.0 mg/dL (0.6-1.3); Estimated Creatinine Clearance 46.1 mL/min (>60); Globulin 1.8 gm/dL (2.3-3.5); Glucose 142 mg/dL (74-106); Magnesium 2.1 mg/dL (1.6-2.6); Osmolality,Calculated 286 (275-295); Phosphorous 2.8 mg/dL (2.4-5.1); Potassium 4.1 mMol/L (3.4-5.1); Sodium 141 mMol/L (136-145); Total Protein 4.6 gm/dL (5.7-8.2); eGFR > 60 See Note
--- NOTE | 2025-10-16 08:28 | PC.NURSE ---
Per Dr. Katelyn Kevin Tegretol crushed with a little apple sauce is ok.
[2025-10-16] MEDS: levETIRAcetam INJ 100 MG/ML VIAL 5ML 1500 MG IVP ×2 (08:49→20:20)
--- NOTE | 2025-10-16 08:53 | PC.SS ---
SS was informed pt is pending IVC Filter, and will be ready fro DC. SS explained to Team pt is requiring auth and pending PT eval. Due to DVT PT unable to complete eval. Per Team PT will see pt most likely after Filter is placed. SS also looked through paper work from [facility] to see if PT eval was done there, nothing found. SS contacted [facility] Case Management and left a message for team in regards to matter, pending a call back.
--- NOTE | 2025-10-16 09:00 | XR_ITS ---
Examination: Percutaneous placement retrievable inferior venacavogram filter Inferior venacavogram Fluoroscopy Selective catheterization inferior vena cava Ultrasound-guided venous access right common femoral vein. AP Abdomen, portable, 2 views Date: October 16, 2025, 1227 hours INDICATIONS: Positive for extensive thrombus left lower extremity venous Doppler October 14, 2025 Informed consent provided. Time out performed Technique And Findings: Skin prepped over the right groin. 1 % Lidocaine administered for local anesthesia. Sterile drape applied. Maximum sterile barrier technique, hand hygiene, ultrasound sterile technique. Ultrasound utilized for localization right common femoral vein. Utilizing ultrasonographic guidance, puncture right common femoral vein with a 21-gauge needle. Placement 0.18 wire guide through the needle into the common femoral vein under fluoroscopic guidance. Placement 5 Greenlandic introducer catheter over the wire guide. Core removed and 0.35 wire guide and placed in the IVC under fluoroscopic guidance. Percutaneous retrievable IVC filter deployment catheter then placed over the wire guide under fluoroscopic guidance to the level L4 level. Inferior venacavogram performed, hand injection 20 cc Isovue 300, serial filming 2 frames per second with the [facility] digital subtraction apparatus Normal caliber inferior vena cava and normal position renal veins. Retrievable IVC filter then deployed below the renal veins and above the IVC bifurcation. No complications observed. Impression: Successful percutaneous placement retrievable IVC filter Normal inferior vena cavogram. Selective catheterization inferior vena cava. Successful ultrasound-guided venous access right common femoral vein. Fluoroscopy 0.4-minute radiation dose 51.38 mGy 2 spot fluoroscopic abdomen films. AP abdomen completion procedure demonstrates satisfactory position IVC filter.
[2025-10-16] MEDS: NICOTINE PATCH 14 MG/24 HR PATCH.TD24 TOP (09:03)
[2025-10-16] MEDS: HYDROmorphone INJ 2 MG/ML VIAL 1 MG IVP ×3 (09:30→20:19)
[2025-10-16] MEDS: HEPARIN SOD LOCK SYR 100 UNIT/ML 500 UNIT IV (13:09)
[2025-10-16] MEDS: LIDOCAINE INJ PF 1% 30 ML VIAL EPID (13:10)
--- NOTE | 2025-10-16 13:32 | PC.NURSE ---
hand off report given to eloy martinez via telephone. patient transferred back up to room via gurney. patient tolerated procedure well. vital stable. gauze and tegaderm placed on site. manual pressure held by mmCHANNEL. site is soft, flat, nontender, and no signs of hematoma. dressing is clean dry and intact. notified eloy martinez per md order to keep patient bed rest and flat for 4 hrs.
--- NOTE | 2025-10-16 13:43 | PC.PT ---
PT eval witheld. Patient had an IVC filter and needs to layflat for 4 hours per chart. RN made aware. Will try again tomorrow.
--- NOTE | 2025-10-16 15:11 | ESPR_ITS ---
<Statement entered by Siva Almonte MD - 10/26/25 09:20> I reviewed above note and agree with findings and plans. I have also personally examined the patient with medicine team and went over assessment and plan with medical team including art gallery internship and resident physician. <Statement entered by Damian Mckinney MD - 10/17/25 10:00> In summary, 79-year-old male with history of seizure, TBI, nonmalignant apical lung mass who is a transfer back from [facility] after undergoing thoracic decompression of left thoracic mass. Currently doing well. Pain appears controlled, pending physical therapy and rehab placement. LE duplex showed acute thrombus of the right common femoral and proximal superficial femoral vein, and he was started on HEPARIN drip overnight. However, we touch base with neurovascular surgery who advised against oral anticoagulation at least until 30 days postop. Completed successful uncomplicated IVC filter placement today. Will need evaluation by physical therapy, which will likely happen tomorrow, prior to discharging to SNF. Otherwise remained hemodynamically stable. I?ve reviewed the note and agree with this assessment and plan, with the exceptions outlined above. I personally went over the labs, imaging, home medications, and prior records, and examined the patient. The case was also reviewed with the attending physician. Please note: this document was transcribed using voice recognition technology; minor inaccuracies may be present. Damian Mckinney DO PGY II Documentation for date of: 10/16/25 Subjective Subjective Interval history: Patient was seen at the bedside today and informed that a second attempt at IVC filter placement will be performed today as the procedure failed yesterday. One dose of Ativan was administered prior to the procedure to help alleviate the patient's anxiety. The patient also reported pain in the upper left trapezius muscle, and hydromorphone was ordered as needed for pain management. May need physical therapy for rehab placement. Exam Vital Signs Temp Pulse Resp BP Pulse Ox O2 Del Method O2 Flow Rate 98.4 F 70 15 141/72 H 100 Nasal Cannula 2 10/16/25 12:34 10/16/25 13:15 10/16/25 13:15 10/16/25 13:15 10/16/25 13:15 10/16/25 13:15 10/16/25 13:15 Narrative Exam Physical Exam General: Awake and in no acute distress. Conversational and non-toxic appearing. HEENT: Normocephalic, atraumatic, mucous membranes moist. Heart: Regular rate and rhythm, no murmurs. Non-labored respirations, symmetric chest rise, no use of accessory muscles. Lungs: Clear to auscultation with no wheezing or crackles. Abdomen: Soft, nondistended, nontender. No guarding or rebound tenderness. Neurologic: Alert and oriented x3, no gross neurological deficit, and patient able to move all 4 extremities. Extremities: Left lower extremity trace pitting edema up to the knee. 2+ radial pulse bilaterally, 2+ pedal pulse bilaterally. Neuro: No focal deficits observed. Conversant, moving all extremities. No overt cerebellar signs/incoordination. Skin: No rash or ecchymoses. Tattoos. Psychiatric: Cooperative, appropriate mood and affect. Anxious. Objective Labs 10/17/25 05:05 10/17/25 05:05 Labs: Laboratory Results - last 24 hr 10/16/25 04:42 WBC 6.8 RBC 2.58 L Hgb 7.7 L Hct 24.0 L MCV 93 MCH 29.8 MCHC 32.1 RDW Std Deviation 50.3 H Plt Count 256 Neut % (Auto) 64 Lymph % (Auto) 18 [place] % (Auto) 15 H Eos % (Auto) 2 Baso % (Auto) 1 Neut # (Auto) 4.3 Lymph # (Auto) 1.2 [place] # (Auto) 1.0 H Eos # (Auto) 0.2 Baso # (Auto) 0.0 Immature Gran # (Auto) 0.07 H Absolute Nucleated RBC 0.00 Immature Gran % 1 H Nucleated RBC % 0 PT 10.9 INR 1.0 APTT 31.6 D Sodium 141 Potassium 4.1 D Chloride 108 H Carbon Dioxide 24.3 Anion Gap 9 BUN 21 Creatinine 1.0 Estim Creat Clear Calc 46.1 L eGFR > 60 BUN/Creatinine Ratio 21 H Glucose 142 H Calculated Osmolality 286 Calcium 7.4 L Corrected Calcium 8.4 L Phosphorus 2.8 Magnesium 2.1 Total Bilirubin 0.2 L AST 25 ALT 21 Alkaline Phosphatase 87 Total Protein 4.6 L Albumin 2.8 L Globulin 1.8 L Albumin/Globulin Ratio 1.6 Quality Measures Quality Measures VTE prophylaxis Advance care planning discussed with:: patient Assessment & Plan Assessment Current Active Medications: Generic Name Dose Route Start Last Admin Trade Name Freq PRN Reason Stop Dose Admin Acetaminophen 650 mg 10/13/25 22:29 Acetaminophen 325 Mg Tablet PO 11/12/25 22:28 Q6H PRN Fever >101.5 or pain 1-3 Albuterol/Ipratropium 3 ml 10/14/25 01:09 Albuterol/Ipratropium (Duoneb) Rt Rosalina 3 Ml Nebu INH 11/13/25 01:08 Q2HR PRN SHORTNESS OF BREATH OR WHEEZE Amlodipine Besylate 10 mg 10/14/25 09:00 10/16/25 09:31 Amlodipine Besylate 5 Mg Tablet PO 11/13/25 08:59 Not Given QDAY AYDEE Carbamazepine 300 mg 10/14/25 09:00 10/16/25 09:05 Carbamazepine 100 Mg Chew PO 11/13/25 08:59 300 mg BID AYDEE Administration Gabapentin 300 mg 10/14/25 06:00 10/16/25 14:26 Gabapentin 300 Mg Capsule PO 11/13/25 05:59 Not Given TID AYDEE Hydromorphone HCl 1 mg 10/13/25 22:36 10/16/25 09:30 Hydromorphone Inj 2 Mg/Ml Vial IVP 10/18/25 22:35 1 mg Q4HR PRN Administration Severe pain 7-10 Levetiracetam 1,500 mg 10/14/25 09:00 10/16/25 08:49 Levetiracetam Inj 100 Mg/Ml Vial 5ml IVP 11/13/25 08:59 1,500 mg Q12HR AYDEE Administration Lorazepam 2 mg 10/13/25 22:36 Lorazepam 2 Mg/Ml Vial IVP 10/18/25 22:35 Q4H PRN SEIZURES Lorazepam 1 mg 10/16/25 12:29 Lorazepam 0.5 Mg Tablet PO 10/17/25 12:28 X1 PRN Anxious Losartan Potassium 50 mg 10/14/25 09:00 10/16/25 09:31 Losartan Potassium 25 Mg Tablet PO 11/13/25 08:59 Not Given QDAY AYDEE Methocarbamol 750 mg 10/14/25 06:00 10/16/25 11:58 Methocarbamol 500 Mg Tablet PO 11/13/25 05:59 Not Given QID AYDEE Mirtazapine 15 mg 10/14/25 21:00 10/15/25 21:24 Mirtazapine 15 Mg Tablet PO 11/13/25 20:59 15 mg HS AYDEE Administration Montelukast Sodium 10 mg 10/14/25 21:00 10/15/25 21:24 Montelukast Sodium 10 Mg Tablet PO 11/13/25 20:59 10 mg HS AYDEE Administration Nicotine 14 mg 10/14/25 09:00 10/16/25 09:03 Nicotine Patch 14 Mg/24 Hr Patch.Td24 TOP 11/13/25 08:59 14 mg QDAY AYDEE Administration Oxycodone HCl 5 mg 10/13/25 22:36 10/15/25 14:59 Oxycodone Hcl 5 Mg Ir Tab PO 10/18/25 22:35 5 mg Q6HR PRN Administration PAIN SCALE 4-6 (Moderate Polyethylene Glycol 17 gm 10/14/25 09:00 10/16/25 09:31 Polyethylene Glycol 17 Gm Packet PO 11/13/25 08:59 Not Given BID AYDEE Plan 79-year-old male with a history of TBI, seizures, and right apical lung mass (negative biopsy 09/17/2025) presented with worsening back pain and was transferred to [facility] for thoracic mass and spinal cord compression at T4-T6. He underwent posterior thoracic decompression and fusion from T3-T8 on 10/07/2025, and was transferred back to [facility] on 10/13/2025 for further management. #Left thoracic mass, T4-T6, s/p posterior thoracic decompression and fusion #L4-L5 severe acquired spinal stenosis - Patient presented to [facility] on 10/05 and was transferred to [facility] for neurosurgical management of a left thoracic mass at the T5-T6 level causing spinal cord compression - At [facility], patient underwent posterior thoracic decompression and spinal fusion from T3-T8 on 10/[address] Friedman. - Post-operative course included the placement of a drain, which was removed by the patient on 10/13/2025. - Patient was cleared by neurosurgery and transfer back to [facility] for further management. - CT chest/abdomen/pelvis 10/05/2025 shows a large soft tissue mass measuring about 8 x 6 cm at the T5-T6 level noted to be destroying much of the vertebral bodies and extending to the spinal canal with impingement on the thoracic cord - Thoracic spine MRI 10/05/2025 showed 8.3 x 5.1 cm tumor mass replacing the T5- T6 vertebral bodies, producing severe thoracic cord compression at the T5 level. - Lumbar spine MRI 10/05/2025 showed L4-L5 severe acquired spinal stenosis. - CT CAP 10/05/2025 showed a large soft tissue mass 8 x 6 cm, T5-T6 level, destroying much of these vertebral bodies and extending into the spinal canal likely impinging upon the thoracic cord. - Per records from [facility], CT head with contrast (patient did not tolerate MRI of head) negative for malignant invasion to brain. - Status post posterior thoracic decompression and spinal fusion of spinal cord from T3-T8 performed by Dr. Friedman at [facility] on 10/07. Plan * Physical therapy referral ordered. * Wound care referral ordered. * Neurochecks every 4 hours. * Pain control with oxycodone IR 5 mg every 4 hours as needed for moderate pain Dilaudid 1 mg IV every 4 hours as needed for severe pain. * Rehab placement pending. * Follow-up with outpatient neurosurgery. #Acute deep vein thrombosis of the right common femoral and proximal superficial femoral veins - Identified on venous Doppler ultrasound performed on 10/14, which was ordered for leg pain and swelling. - Initiated on heparin drip for anticoagulation management. - Consulted with Dr. Friedman (neurosurgeon at [facility], who performed the thoracic decompression surgery), who recommended avoiding oral anticoagulation for at least 30 days post-operatively due to the patient's recent major vascular surgery and blood transfusion requirements after the surgery. Plan: * IVC filter successful placed today. * Monitor CBC. #Acute blood loss anemia - Likely from spine surgery on 10/07. - Patient received several transfusion after the surgery at [facility]. - Patient hemoglobins stable, does not require transfusion at the moment, PT, INR, PTT within normal range on prior day. Plan: * Monitor H&H. Transfusing for Hgb <7 or symptomatic. * Avoid NSAIDs/ASA/chemical prophylaxis #Right renal mass - Heterogenously enhancing mass in the right kidney per records from [facility], with mass measuring up to 5.8cm and suggestive of renal cell carcinoma. - A low-dose CT 08/04/2025 here at [facility] showed solid mass on the anterior right kidney was noted, size measuring at least 5.8 cm. Plan: * Consider hematology oncology consult or further outpatient workup. #Right upper lobe lung mass - Low-dose CT lung on 08/04/2025 showed 3.7 cm pulmonary mass right upper lobe with multiple additional nodules. - Lung biopsy 09/17/2025 of right lung mass with pathology report on 09/17/2025 with no malignancy identified. - PET scan 09/29/2025 showed 3 hypermetabolic pulmonary mass right apex 18 x 12 mm, hypermetabolic spiculated pulmonary mass right upper lobe 4.1 x 3.6 cm compared to 3.7 x 3.[address] lung study 08/04/2025. - CT CAP 10/05/2025 showed 18 mm pulmonary mass right apex and 4.1 cm pulmonary mass spiculated margins right upper lobe. - Cocci serology 10/14 negative. Plan: * Consider hematology oncology consult or further outpatient workup. #Seizure disorder Plan: * Resume home Keppra 1500 mg IV twice daily. * Resume home carbamazepine ER 300 mg twice daily. * Ativan 2 mg every 4 hours IV as needed for seizures. * Seizure precautions. * Neurochecks every 4 hours. #COPD Plan: * Resume Singulair 10 mg nightly. * DuoNebs every 2 hours as needed for shortness of breath or wheeze. #Hypertension, primary - Per records from [facility], patient is unaware of what medications he takes at home for his hypertension. Plan: * Amlodipine 10 mg daily. * Losartan 50 mg daily. #Postoperative reduced oral intake - Patient noted to have decreased oral intake since his surgery on 10/07. - Patient was initially had NG tube placed for tube feeds, however the patient removed his NG tube on 10/12. - Per [facility] records, the patient was eating outside food brought by family and seem to be consuming about 25% of his meals. Plan: * Referral to registered dietitian. * Continue mirtazapine 15 mg nightly as started by [facility]. Health Maintenance Disposition: med surg DVT prophylaxis: Lovenox GI prophylaxis: N/A Diet: regular CODE STATUS: FULL Patient plan of care was discussed with the senior resident, Dr. Mckinney, and attending physician, Dr. Almonte. Jyoti Sultana, DO PGY-1
--- NOTE | 2025-10-16 15:19 | PC.SS ---
P[facility] file exchanged to [facility]. When PT completed, SS to send documentation to [facility] for auth.
--- NOTE | 2025-10-16 17:18 | PC.NURSE ---
Wound care to be passed on to food cashier, patient must lay flat 4 hours post procedure.
[2025-10-16] MEDS: MIRTAZAPINE 15 MG TABLET PO (20:28)
[2025-10-16] MEDS: MONTELUKAST SODIUM 10 MG TABLET PO (20:30)
[2025-10-16] MEDS: POLYETHYLENE GLYCOL 17 GM PACKET PO (20:32)
[2025-10-16] MEDS: GABAPENTIN 300 MG CAPSULE PO (22:20)
[2025-10-17] VITALS (9 sets, daily range): BP systolic 120–136; BP diastolic 52–77; PULSE 71–83; RESP 18–98; TEMP 36.4–37.4; O2SAT 94–98
[2025-10-17] MEDS: ACETAMINOPHEN 325 MG TABLET 650 MG PO ×2 (04:07→21:05)
[2025-10-17 05:33] LABS: Basophils # (Auto) 0.0 Thou/mm3 (0.0-0.2); Basophils % (Auto) 1 % (0-2.5); Eosinophils # (Auto) 0.2 Thou/mm3 (0.0-0.5); Eosinophils % (Auto) 3 % (0-10); Hematocrit 25.0 % (41.0-53.0); Immature Granulocytes Auto 0.08 Thou/mm3 (0.00-0.00); Lymphocytes # (Auto) 1.2 Thou/mm3 (1.0-4.8); Lymphocytes % (Auto) 18 % (10-50); Mean Corpuscular HGB Conc 33.2 g/dl (31.0-37.0); Mean Corpuscular Hemoglobin 30.4 pg (25.0-35.0); Mean Corpuscular Volume 92 fL (80-100); Monocytes # (Auto) 0.9 Thou/mm3 (0.0-0.8); Monocytes % (Auto) 14 % (0-12); Neutrophils # (Auto) 4.1 Thou/mm3 (1.8-7.7); Neutrophils % (Auto) 63 % (37-80); Nucleated Red Blood Cell # 0.00 Thou/mm3 (0.00-0.00); Nucleated Red Blood Cell % 0 /100 WBC (0); Platelet Count 261 Thou/mm3 (140-440); RDW Standard Deviation 49.5 fL (35.1-43.9); Red Blood Count 2.73 Miln/mm3 (4.50-5.90); White Blood Count 6.4 Thou/mm3 (3.8-10.6)
[2025-10-17] MEDS: GABAPENTIN 300 MG CAPSULE PO ×3 (05:40→21:06)
[2025-10-17 05:41] LABS: Hemoglobin 8.3 g/dL (13.5-16.0)
[2025-10-17 06:04] LABS: Alanine Aminotransferase 20 U/L (10-49); Albumin, Serum 2.9 gm/dL (3.4-4.8); Albumin/Globulin Ratio 1.5 (1.2-2.2); Alkaline Phosphatase 87 U/L (46-116); Anion Gap 7 (7-16); Aspartate Amino Transferase 25 U/L (0-34); BUN/Creatinine Ratio 21 Ratio (12-20); Bilirubin,Total 0.4 mg/dL (0.3-1.2); Blood Urea Nitrogen 19 mg/dL (9-23); Calcium 7.8 mg/dL (8.3-10.6); Calcium (Corrected) 8.7 mg/dL (8.5-10.1); Carbon Dioxide 25.0 mMol/L (20.0-31.0); Chloride 107 mMol/L (98-107); Creatinine (Component) 0.9 mg/dL (0.6-1.3); Estimated Creatinine Clearance 51.2 mL/min (>60); Globulin 2.0 gm/dL (2.3-3.5); Glucose 95 mg/dL (74-106); Magnesium 2.0 mg/dL (1.6-2.6); Osmolality,Calculated 279 (275-295); Phosphorous 3.3 mg/dL (2.4-5.1); Potassium 4.4 mMol/L (3.4-5.1); Sodium 139 mMol/L (136-145); Total Protein 4.9 gm/dL (5.7-8.2); eGFR > 60 See Note
--- NOTE | 2025-10-17 09:28 | ESPR_ITS ---
<Statement entered by Siva Almonte MD - 10/26/25 09:20> I reviewed above note and agree with findings and plans. I have also personally examined the patient with medicine team and went over assessment and plan with medical team including analytics intern and resident physician. Documentation for date of: 10/17/25 Subjective Subjective Interval history: No overnight events reported. Patient was seen at bedside this morning. Need physical therapy evaluation and pending authorization for rehab placement. Patient has no complaints at this time. Dr. Friedman at [facility], says that patient may be discharged with aspirin. Exam Vital Signs Temp Pulse Resp BP Pulse Ox O2 Del Method O2 Flow Rate 98.0 F 73 18 136/67 H 96 Room Air 2 10/17/25 04:00 10/17/25 04:00 10/17/25 04:00 10/17/25 04:00 10/17/25 04:00 10/17/25 04:00 10/17/25 00:00 Narrative Exam Physical Exam General: Awake and in no acute distress. Conversational and non-toxic appearing. HEENT: Normocephalic, atraumatic, mucous membranes moist. Heart: Regular rate and rhythm, no murmurs. Non-labored respirations, symmetric chest rise, no use of accessory muscles. Lungs: Clear to auscultation with no wheezing or crackles. Abdomen: Soft, nondistended, nontender. No guarding or rebound tenderness. Neurologic: Alert and oriented x3, no gross neurological deficit, and patient able to move all 4 extremities. Extremities: Left lower extremity trace pitting edema up to the knee. 2+ radial pulse bilaterally, 2+ pedal pulse bilaterally. Neuro: No focal deficits observed. Conversant, moving all extremities. No overt cerebellar signs/incoordination. Skin: No rash or ecchymoses. Tattoos. Psychiatric: Cooperative, appropriate mood and affect. Anxious. Objective Labs 10/17/25 05:05 10/17/25 05:05 Labs: Laboratory Results - last 24 hr 10/17/25 05:05 WBC 6.4 RBC 2.73 L Hgb 8.3 L Hct 25.0 L MCV 92 MCH 30.4 MCHC 33.2 RDW Std Deviation 49.5 H Plt Count 261 Neut % (Auto) 63 Lymph % (Auto) 18 [place] % (Auto) 14 H Eos % (Auto) 3 Baso % (Auto) 1 Neut # (Auto) 4.1 Lymph # (Auto) 1.2 [place] # (Auto) 0.9 H Eos # (Auto) 0.2 Baso # (Auto) 0.0 Immature Gran # (Auto) 0.08 H Absolute Nucleated RBC 0.00 Immature Gran % 1 H Nucleated RBC % 0 Sodium 139 Potassium 4.4 Chloride 107 Carbon Dioxide 25.0 Anion Gap 7 BUN 19 Creatinine 0.9 Estim Creat Clear Calc 51.2 L eGFR > 60 BUN/Creatinine Ratio 21 H Glucose 95 Calculated Osmolality 279 Calcium 7.8 L Corrected Calcium 8.7 Phosphorus 3.3 Magnesium 2.0 Total Bilirubin 0.4 AST 25 ALT 20 Alkaline Phosphatase 87 Total Protein 4.9 L Albumin 2.9 L Globulin 2.0 L Albumin/Globulin Ratio 1.5 Quality Measures Quality Measures VTE prophylaxis Advance care planning discussed with:: patient Assessment & Plan Assessment Current Active Medications: Generic Name Dose Route Start Last Admin Trade Name Freq PRN Reason Stop Dose Admin Acetaminophen 650 mg 10/13/25 22:29 10/17/25 04:07 Acetaminophen 325 Mg Tablet PO 11/12/25 22:28 650 mg Q6H PRN Administration Fever >101.5 or pain 1-3 Albuterol/Ipratropium 3 ml 10/14/25 01:09 Albuterol/Ipratropium (Duoneb) Rt Rosalina 3 Ml Nebu INH 11/13/25 01:08 Q2HR PRN SHORTNESS OF BREATH OR WHEEZE Amlodipine Besylate 10 mg 10/14/25 09:00 10/16/25 09:31 Amlodipine Besylate 5 Mg Tablet PO 11/13/25 08:59 Not Given QDAY AYDEE Carbamazepine 300 mg 10/14/25 09:00 10/16/25 20:30 Carbamazepine 100 Mg Chew PO 11/13/25 08:59 300 mg BID AYDEE Administration Gabapentin 300 mg 10/14/25 06:00 10/17/25 05:40 Gabapentin 300 Mg Capsule PO 11/13/25 05:59 300 mg TID AYDEE Administration Hydromorphone HCl 1 mg 10/13/25 22:36 10/16/25 20:19 Hydromorphone Inj 2 Mg/Ml Vial IVP 10/18/25 22:35 1 mg Q4HR PRN Administration Severe pain 7-10 Levetiracetam 1,500 mg 10/14/25 09:00 10/16/25 20:20 Levetiracetam Inj 100 Mg/Ml Vial 5ml IVP 11/13/25 08:59 1,500 mg Q12HR AYDEE Administration Lorazepam 2 mg 10/13/25 22:36 Lorazepam 2 Mg/Ml Vial IVP 10/18/25 22:35 Q4H PRN SEIZURES Lorazepam 1 mg 10/16/25 12:29 Lorazepam 0.5 Mg Tablet PO 10/17/25 12:28 X1 PRN Anxious Losartan Potassium 50 mg 10/14/25 09:00 10/16/25 09:31 Losartan Potassium 25 Mg Tablet PO 11/13/25 08:59 Not Given QDAY AYDEE Methocarbamol 750 mg 10/14/25 06:00 10/17/25 05:40 Methocarbamol 500 Mg Tablet PO 11/13/25 05:59 750 mg QID AYDEE Administration Mirtazapine 15 mg 10/14/25 21:00 10/16/25 20:28 Mirtazapine 15 Mg Tablet PO 11/13/25 20:59 15 mg HS AYDEE Administration Montelukast Sodium 10 mg 10/14/25 21:00 10/16/25 20:30 Montelukast Sodium 10 Mg Tablet PO 11/13/25 20:59 10 mg HS AYDEE Administration Nicotine 14 mg 10/14/25 09:00 10/16/25 09:03 Nicotine Patch 14 Mg/24 Hr Patch.Td24 TOP 11/13/25 08:59 14 mg QDAY AYDEE Administration Oxycodone HCl 5 mg 10/13/25 22:36 10/15/25 14:59 Oxycodone Hcl 5 Mg Ir Tab PO 10/18/25 22:35 5 mg Q6HR PRN Administration PAIN SCALE 4-6 (Moderate Polyethylene Glycol 17 gm 10/14/25 09:00 10/16/25 20:32 Polyethylene Glycol 17 Gm Packet PO 11/13/25 08:59 17 gm BID AYDEE Administration Plan 79-year-old male with a history of TBI, seizures, and right apical lung mass (negative biopsy 09/17/2025) presented with worsening back pain and was transferred to [facility] for thoracic mass and spinal cord compression at T4-T6. He underwent posterior thoracic decompression and fusion from T3-T8 on 10/07/2025, and was transferred back to [facility] on 10/13/2025 for further management. #Left thoracic mass, T4-T6, s/p posterior thoracic decompression and fusion #L4-L5 severe acquired spinal stenosis - Patient presented to [facility] on 10/05 and was transferred to [facility] for neurosurgical management of a left thoracic mass at the T5-T6 level causing spinal cord compression - At [facility], patient underwent posterior thoracic decompression and spinal fusion from T3-T8 on 10/[address] Friedman. - Post-operative course included the placement of a drain, which was removed by the patient on 10/13/2025. - Patient was cleared by neurosurgery and transfer back to [facility] for further management. - CT chest/abdomen/pelvis 10/05/2025 shows a large soft tissue mass measuring about 8 x 6 cm at the T5-T6 level noted to be destroying much of the vertebral bodies and extending to the spinal canal with impingement on the thoracic cord - Thoracic spine MRI 10/05/2025 showed 8.3 x 5.1 cm tumor mass replacing the T5- T6 vertebral bodies, producing severe thoracic cord compression at the T5 level. - Lumbar spine MRI 10/05/2025 showed L4-L5 severe acquired spinal stenosis. - CT CAP 10/05/2025 showed a large soft tissue mass 8 x 6 cm, T5-T6 level, destroying much of these vertebral bodies and extending into the spinal canal likely impinging upon the thoracic cord. - Per records from [facility], CT head with contrast (patient did not tolerate MRI of head) negative for malignant invasion to brain. - Status post posterior thoracic decompression and spinal fusion of spinal cord from T3-T8 performed by Dr. Friedman at [facility] on 10/07. Plan * Physical therapy evaluation needed. * Continue with wound care. * Pain control with oxycodone IR 5 mg every 4 hours as needed for moderate pain Dilaudid 1 mg IV every 4 hours as needed for severe pain. * Pending authorization for rehab placement. * Follow-up with outpatient neurosurgery. #Acute deep vein thrombosis of the right common femoral and proximal superficial femoral veins - Identified on venous Doppler ultrasound performed on 10/14, which was ordered for leg pain and swelling. - Initiated on heparin drip for anticoagulation management. Heparin drip stopped for IVC filter placement. - Consulted with Dr. Friedman (neurosurgeon at [facility], who performed the thoracic decompression surgery), who recommended avoiding oral anticoagulation for at least 30 days post-operatively due to the patient's recent major vascular surgery and blood transfusion requirements after the surgery. Plan: * Monitor CBC. #Acute blood loss anemia - Likely from spine surgery on 10/07. - Patient received several transfusion after the surgery at [facility]. - Patient hemoglobins stable, does not require transfusion at the moment, PT, INR, PTT within normal range on prior day. Plan: * Monitor H&H. Transfusing for Hgb <7 or symptomatic. * Avoid NSAIDs/ASA/chemical prophylaxis #Right renal mass - Heterogenously enhancing mass in the right kidney per records from [facility], with mass measuring up to 5.8cm and suggestive of renal cell carcinoma. - A low-dose CT 08/04/2025 here at [facility] showed solid mass on the anterior right kidney was noted, size measuring at least 5.8 cm. Plan: * Consider hematology oncology consult or further outpatient workup. #Right upper lobe lung mass - Low-dose CT lung on 08/04/2025 showed 3.7 cm pulmonary mass right upper lobe with multiple additional nodules. - Lung biopsy 09/17/2025 of right lung mass with pathology report on 09/17/2025 with no malignancy identified. - PET scan 09/29/2025 showed 3 hypermetabolic pulmonary mass right apex 18 x 12 mm, hypermetabolic spiculated pulmonary mass right upper lobe 4.1 x 3.6 cm compared to 3.7 x 3.[address] lung study 08/04/2025. - CT CAP 10/05/2025 showed 18 mm pulmonary mass right apex and 4.1 cm pulmonary mass spiculated margins right upper lobe. - Cocci serology negative. Plan: * Consider hematology oncology consult or further outpatient workup. #Seizure disorder Plan: * Resume home Keppra 1500 mg IV twice daily. * Resume home carbamazepine ER 300 mg twice daily. * Ativan 2 mg every 4 hours IV as needed for seizures. * Seizure precautions. * Neurochecks every 4 hours. #COPD Plan: * Resume Singulair 10 mg nightly. * DuoNebs every 2 hours as needed for shortness of breath or wheeze. #Hypertension, primary - Per records from [facility], patient is unaware of what medications he takes at home for his hypertension. Plan: * Amlodipine 10 mg daily. * Losartan 50 mg daily. #Postoperative reduced oral intake - Patient noted to have decreased oral intake since his surgery on 10/07. - Patient was initially had NG tube placed for tube feeds, however the patient removed his NG tube on 10/12. - Per [facility] records, the patient was eating outside food brought by family and seem to be consuming about 25% of his meals. Plan: * Referral to registered dietitian. * Continue mirtazapine 15 mg nightly as started by [facility]. Health Maintenance Disposition: med surg, PT eval, and pending auth for rehab DVT prophylaxis: Lovenox GI prophylaxis: N/A Diet: regular CODE STATUS: FULL Patient plan of care was discussed with the senior resident, Dr. Mckinney, and attending physician, Dr. Almonte. Jyoti Sultana, PGY-1
[2025-10-17] MEDS: levETIRAcetam INJ 100 MG/ML VIAL 5ML 1500 MG IVP (09:54)
[2025-10-17] MEDS: LOSARTAN POTASSIUM 25 MG TABLET 50 MG PO (09:55)
[2025-10-17] MEDS: POLYETHYLENE GLYCOL 17 GM PACKET PO ×2 (09:58→21:03)
[2025-10-17] MEDS: NICOTINE PATCH 14 MG/24 HR PATCH.TD24 TOP (09:59)
--- NOTE | 2025-10-17 17:29 | PC.NURSE ---
Attempted to place patient seizure pads back on bed. Patient and patient's both stated they would rather have them off. Patient and both educated regarding the need for seizure pads as a safety precaution. Patient stated he wanted them off and they get in the way .
[2025-10-17] MEDS: MONTELUKAST SODIUM 10 MG TABLET PO (21:04)
[2025-10-17] MEDS: MIRTAZAPINE 15 MG TABLET PO (21:05)
[2025-10-18] VITALS (13 sets, daily range): BP systolic 106–146; BP diastolic 54–67; PULSE 74–87; RESP 16–96; TEMP 36.7–37.7; O2SAT 95–98
[2025-10-18] MEDS: GABAPENTIN 300 MG CAPSULE PO ×3 (06:29→21:37)
[2025-10-18] MEDS: NICOTINE PATCH 14 MG/24 HR PATCH.TD24 TOP (09:12)
[2025-10-18] MEDS: LOSARTAN POTASSIUM 25 MG TABLET 50 MG PO (09:17)
--- NOTE | 2025-10-18 09:36 | XR_ITS ---
EXAMINATION: AP chest single view TECHNIQUE: AP portable semiupright chest single view Date and time: October 18, 2025, 1022 hours, comparison September 17, 2025 INDICATIONS: Chest pain today. FINDINGS: Normal heart size Ectatic enlarged thoracic aorta Increased markings at the lung bases No luis pulmonary edema Prominent osteopenia IMPRESSION: Suspicious for early bibasilar pneumonia
--- NOTE | 2025-10-18 09:36 | EKG_ITS ---
[facility] Test Date: 2025-10-18 Pat Name: GERONIMO EARLY Department: Room: 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
--- NOTE | 2025-10-18 09:41 | PC.SS ---
PT evaluation submitted to SNF for review, insurance auth. still pending.
--- NOTE | 2025-10-18 09:44 | XR_ITS ---
Examination: CT brain head without contrast. 2-D sagittal coronal reconstructions Date and time of exam: October 18, 2025, 1002 hours INDICATIONS: Onset altered mental status beginning 45 minutes ago CTDI: vol (mGy): 51.6 DLP: (mGycm): 1028 Technique: Multiple CT axial sections of the brain have been obtained, 5 mm slice thickness. Contrast has not been administered. 2-D sagittal, coronal reconstructions have been obtained Low dose protocols were performed. One or more of the following dose reduction techniques were used; automated exposure control, adjustment of the mA and/or KV according to patient size, use of iterative reconstruction technique. Findings: No significant ventricular enlargement. Small old infarct left basal ganglia Intra-axial or extra-axial hemorrhage density is not seen. No mass effect or midline shift Basal cisterns are not remarkable. Fourth ventricle is midline. Cranial vault intact. Impression: Negative for acute hemorrhage, mass effect or midline shift Advise clinical correlation and follow-up accordingly
[2025-10-18] MEDS: POLYETHYLENE GLYCOL 17 GM PACKET PO (09:49)
--- NOTE | 2025-10-18 09:55 | EVENTNT_ITS ---
Documentation for date of: 10/18/25 Event Note Event Note: Rapid Response A rapid response was called for acute right shoulder pain radiating to the right chest. On arrival, patient was awake, alert, hemodynamically stable, and reporting mild improvement in discomfort. Per nursing, patient?s speech appeared slurred; review of medication administration record showed no recent narcotics or sedatives. Per patient and family slurred speech is chronic thus low suspicion for acute CVA thus will not active tele-neurology. Interventions/Orders: * CXR stat * EKG (reviewed at bedside: normal sinus rhythm) * Troponin * Lidocaine patch for shoulder/chest wall pain * CT head stat * Continue neuro checks Exam at Time of Rapid: Vitals: Stable General: No acute distress Neuro: No focal weakness; speech slightly slurred per nursing but unchanged to my assessment Lungs: Clear to auscultation bilaterally Cardiac: RRR, no murmurs Extremities: Right shoulder with reproducible discomfort No new deficits Plan: Will await results of CT head, CXR, troponin, and formal EKG read. Continue monitoring on the floor. If any clinical changes occur, escalate accordingly. ----- Plan discussed with attending physician Dr. Gage Zepeda MD PGY-1 Internal Medicine
[2025-10-18 10:51] LABS: Troponin I < 0.020 ng/mL (0.0-0.045)
[2025-10-18] MEDS: LIDOCAINE 5% 1 PATCH TOP (12:46)
--- NOTE | 2025-10-18 15:26 | ESPR_ITS ---
<Statement entered by Siva Almonte MD - 10/31/25 09:22> I reviewed above note and agree with findings and plans. I have also personally examined the patient with medicine team and went over assessment and plan with medical team including international coordinator and resident physician. Documentation for date of: 10/18/25 Subjective Subjective Interval history: No acute overnight. Reports no new or worsening symptoms. Today he had RR (see note) for right posterior shoulder pain and suspected slurred speech (which patient and family confirmed his chronic, and also noted on previous exam from yesterday). We did order workup including EKG, troponin and head CT and were all negative. Otherwise tolerating oral intake well, bowel movements are regular. Denies fever, chills, headaches, chest pain, sob, cough, GI or urinary symptoms. PT was completed. Pending final authorization before discharge to acute rehab. Exam Vital Signs Temp Pulse Resp BP Pulse Ox O2 Del Method O2 Flow Rate 98.0 F 79 18 128/62 95 Room Air 2 10/18/25 12:00 10/18/25 12:00 10/18/25 12:00 10/18/25 12:10/18/25 12:00 10/18/25 12:00 10/17/25 20:00 Narrative Exam Physical Exam General: Awake and in no acute distress. Conversational and non-toxic appearing. HEENT: Normocephalic, atraumatic, mucous membranes moist. Heart: Regular rate and rhythm, no murmurs. Non-labored respirations, symmetric chest rise, no use of accessory muscles. Lungs: Clear to auscultation with no wheezing or crackles. Abdomen: Soft, nondistended, nontender. No guarding or rebound tenderness. Neurologic: Alert and oriented x3, no gross neurological deficit, and patient able to move all 4 extremities. Extremities: Left lower extremity trace pitting edema up to the knee. 2+ radial pulse bilaterally, 2+ pedal pulse bilaterally. Neuro: No focal deficits observed. Conversant, moving all extremities. No overt cerebellar signs/incoordination. Skin: No rash or ecchymoses. Tattoos. Psychiatric: Cooperative, appropriate mood and affect. Anxious. Objective Labs 10/17/25 05:05 10/17/25 05:05 Labs: Laboratory Results - last 24 hr 10/18/25 09:40 Troponin I < 0.020 Quality Measures Quality Measures VTE prophylaxis Advance care planning discussed with:: patient Assessment & Plan Assessment Current Active Medications: Generic Name Dose Route Start Last Admin Trade Name Freq PRN Reason Stop Dose Admin Acetaminophen 650 mg 10/13/25 22:29 10/17/25 21:05 Acetaminophen 325 Mg Tablet PO 11/12/25 22:28 650 mg Q6H PRN Administration Fever >101.5 or pain 1-3 Albuterol/Ipratropium 3 ml 10/14/25 01:09 Albuterol/Ipratropium (Duoneb) Rt Rosalina 3 Ml Nebu INH 11/13/25 01:08 Q2HR PRN SHORTNESS OF BREATH OR WHEEZE Amlodipine Besylate 10 mg 10/14/25 09:00 10/18/25 09:13 Amlodipine Besylate 5 Mg Tablet PO 11/13/25 08:59 10 mg QDAY AYDEE Administration Carbamazepine 300 mg 10/14/25 09:00 10/18/25 09:13 Carbamazepine 100 Mg Chew PO 11/13/25 08:59 300 mg BID AYDEE Administration Gabapentin 300 mg 10/14/25 06:00 10/18/25 13:46 Gabapentin 300 Mg Capsule PO 11/13/25 05:59 300 mg TID AYDEE Administration Hydromorphone HCl 1 mg 10/13/25 22:36 10/16/25 20:19 Hydromorphone Inj 2 Mg/Ml Vial IVP 10/18/25 22:35 1 mg Q4HR PRN Administration Severe pain 7-10 Levetiracetam 1,500 mg 10/17/25 21:00 10/18/25 09:12 Levetiracetam 250 Mg Tablet PO 11/16/25 20:59 1,500 mg Q12HR AYDEE Administration Lorazepam 2 mg 10/13/25 22:36 Lorazepam 2 Mg/Ml Vial IVP 10/18/25 22:35 Q4H PRN SEIZURES Losartan Potassium 50 mg 10/14/25 09:00 10/18/25 09:17 Losartan Potassium 25 Mg Tablet PO 11/13/25 08:59 50 mg QDAY AYDEE Administration Methocarbamol 750 mg 10/14/25 06:00 10/18/25 12:47 Methocarbamol 500 Mg Tablet PO 11/13/25 05:59 750 mg QID AYDEE Administration Mirtazapine 15 mg 10/14/25 21:00 10/17/25 21:05 Mirtazapine 15 Mg Tablet PO 11/13/25 20:59 15 mg HS AYDEE Administration Montelukast Sodium 10 mg 10/14/25 21:00 10/17/25 21:04 Montelukast Sodium 10 Mg Tablet PO 11/13/25 20:59 10 mg HS AYDEE Administration Nicotine 14 mg 10/14/25 09:00 10/18/25 09:12 Nicotine Patch 14 Mg/24 Hr Patch.Td24 TOP 11/13/25 08:59 14 mg QDAY AYDEE Administration Oxycodone HCl 5 mg 10/13/25 22:36 10/15/25 14:59 Oxycodone Hcl 5 Mg Ir Tab PO 10/18/25 22:35 5 mg Q6HR PRN Administration PAIN SCALE 4-6 (Moderate Polyethylene Glycol 17 gm 10/14/25 09:00 10/18/25 09:49 Polyethylene Glycol 17 Gm Packet PO 11/13/25 08:59 17 gm BID AYDEE Administration Plan 79-year-old male with a history of TBI, seizures, and right apical lung mass (negative biopsy 09/17/2025) presented with worsening back pain and was transferred to [facility] for thoracic mass and spinal cord compression at T4-T6. He underwent posterior thoracic decompression and fusion from T3-T8 on 10/07/2025, and was transferred back to [facility] on 10/13/2025 for further management. #Left thoracic mass, T4-T6, s/p posterior thoracic decompression and fusion #L4-L5 severe acquired spinal stenosis - Patient presented to [facility] on 10/05 and was transferred to [facility] for neurosurgical management of a left thoracic mass at the T5-T6 level causing spinal cord compression - At [facility], patient underwent posterior thoracic decompression and spinal fusion from T3-T8 on 10/[address] Friedman. - Post-operative course included the placement of a drain, which was removed by the patient on 10/13/2025. - Patient was cleared by neurosurgery and transfer back to [facility] for further management. - CT chest/abdomen/pelvis 10/05/2025 shows a large soft tissue mass measuring about 8 x 6 cm at the T5-T6 level noted to be destroying much of the vertebral bodies and extending to the spinal canal with impingement on the thoracic cord - Thoracic spine MRI 10/05/2025 showed 8.3 x 5.1 cm tumor mass replacing the T5- T6 vertebral bodies, producing severe thoracic cord compression at the T5 level. - Lumbar spine MRI 10/05/2025 showed L4-L5 severe acquired spinal stenosis. - CT CAP 10/05/2025 showed a large soft tissue mass 8 x 6 cm, T5-T6 level, destroying much of these vertebral bodies and extending into the spinal canal likely impinging upon the thoracic cord. - Per records from [facility], CT head with contrast (patient did not tolerate MRI of head) negative for malignant invasion to brain. - Status post posterior thoracic decompression and spinal fusion of spinal cord from T3-T8 performed by Dr. Friedman at [facility] on 10/07. Plan * Physical therapy evaluation needed. * Continue with wound care. * Pain control with oxycodone IR 5 mg every 4 hours as needed for moderate pain Dilaudid 1 mg IV every 4 hours as needed for severe pain. * Pending authorization for rehab placement. * Follow-up with outpatient neurosurgery. #Acute deep vein thrombosis of the right common femoral and proximal superficial femoral veins - Identified on venous Doppler ultrasound performed on 10/14, which was ordered for leg pain and swelling. - Initiated on heparin drip for anticoagulation management. Heparin drip stopped for IVC filter placement. - Consulted with Dr. Friedman (neurosurgeon at [facility], who performed the thoracic decompression surgery), who recommended avoiding oral anticoagulation for at least 30 days post-operatively due to the patient's recent major vascular surgery and blood transfusion requirements after the surgery. Plan: * Monitor CBC. #Acute blood loss anemia - Likely from spine surgery on 10/07. - Patient received several transfusion after the surgery at [facility]. - Patient hemoglobins stable, does not require transfusion at the moment, PT, INR, PTT within normal range on prior day. Plan: * Monitor H&H. Transfusing for Hgb <7 or symptomatic. * Avoid NSAIDs/ASA/chemical prophylaxis #Right renal mass - Heterogenously enhancing mass in the right kidney per records from [facility], with mass measuring up to 5.8cm and suggestive of renal cell carcinoma. - A low-dose CT 08/04/2025 here at [facility] showed solid mass on the anterior right kidney was noted, size measuring at least 5.8 cm. Plan: * Consider hematology oncology consult or further outpatient workup. #Right upper lobe lung mass - Low-dose CT lung on 08/04/2025 showed 3.7 cm pulmonary mass right upper lobe with multiple additional nodules. - Lung biopsy 09/17/2025 of right lung mass with pathology report on 09/17/2025 with no malignancy identified. - PET scan 09/29/2025 showed 3 hypermetabolic pulmonary mass right apex 18 x 12 mm, hypermetabolic spiculated pulmonary mass right upper lobe 4.1 x 3.6 cm compared to 3.7 x 3.[address] lung study 08/04/2025. - CT CAP 10/05/2025 showed 18 mm pulmonary mass right apex and 4.1 cm pulmonary mass spiculated margins right upper lobe. - Cocci serology negative. Plan: * Consider hematology oncology consult or further outpatient workup. #Seizure disorder Plan: * Resume home Keppra 1500 mg IV twice daily. * Resume home carbamazepine ER 300 mg twice daily. * Ativan 2 mg every 4 hours IV as needed for seizures. * Seizure precautions. * Neurochecks every 4 hours. #COPD Plan: * Resume Singulair 10 mg nightly. * DuoNebs every 2 hours as needed for shortness of breath or wheeze. #Hypertension, primary - Per records from [facility], patient is unaware of what medications he takes at home for his hypertension. Plan: * Amlodipine 10 mg daily. * Losartan 50 mg daily. #Postoperative reduced oral intake - Patient noted to have decreased oral intake since his surgery on 10/07. - Patient was initially had NG tube placed for tube feeds, however the patient removed his NG tube on 10/12. - Per [facility] records, the patient was eating outside food brought by family and seem to be consuming about 25% of his meals. Plan: * Referral to registered dietitian. * Continue mirtazapine 15 mg nightly as started by [facility]. Health Maintenance Disposition: med surg, PT eval, and pending auth for rehab DVT prophylaxis: Lovenox GI prophylaxis: N/A Diet: regular CODE STATUS: FULL Case was discussed with attending physician. Damian Mckinney, PGY II This document was transcribed using voice recognition technology. Minor inaccuracies may be present.
[2025-10-18] MEDS: ACETAMINOPHEN 325 MG TABLET 650 MG PO (21:35)
[2025-10-18] MEDS: MIRTAZAPINE 15 MG TABLET PO (21:35)
[2025-10-18] MEDS: MONTELUKAST SODIUM 10 MG TABLET PO (21:36)
[2025-10-19] VITALS (8 sets, daily range): BP systolic 111–137; BP diastolic 50–65; PULSE 74–110; RESP 17–95; TEMP 36.6–37.3; O2SAT 93–97; BMI 21.2
[2025-10-19] MEDS: oxyCODONE HCL 5 MG IR TAB PO (01:36)
[2025-10-19] MEDS: ACETAMINOPHEN 325 MG TABLET 650 MG PO (05:28)
[2025-10-19] MEDS: GABAPENTIN 300 MG CAPSULE PO ×3 (05:29→21:27)
[2025-10-19] MEDS: HYDROmorphone INJ 2 MG/ML VIAL 1 MG IVP (06:34)
[2025-10-19] MEDS: NICOTINE PATCH 14 MG/24 HR PATCH.TD24 TOP (08:28)
[2025-10-19] MEDS: LOSARTAN POTASSIUM 25 MG TABLET 50 MG PO (08:29)
--- NOTE | 2025-10-19 12:01 | ESPR_ITS ---
<Statement entered by Siva Almonte MD - 10/31/25 09:23> I reviewed above note and agree with findings and plans. I have also personally examined the patient with medicine team and went over assessment and plan with medical team including pharmacy grad intern and resident physician. <Statement entered by Kilo Lentz MD - 10/19/25 18:03> Patient was examined and case was reviewed with team including attending physician. Note reviewed, I agree with most of its contents and agree with the patient's care as documented by Dr. Sultana Patient seen today at the bedside found awake, alert, orientedx3. No overnight events reported. Vitals and labs reviewed.He states his shoulder pain has improved compared to previous examinations. was at bedside and requested that patients bowel regimen be discontinued as last night patient had multiple bowel movements. As requested Bowel regimen was adjusted. Patient also has a left femoral Central Line which is currently not being used and was discontinued to avoid any catheter related infections. Patient at this time is pending authorization for [facility] facility namely [facility]. Will continue to follow up with delivery crew worker. Case discussed with my attending Dr. Gage Lentz MD PGY-2 Documentation for date of: 10/19/25 Subjective Subjective Interval history: No acute events overnight. Patient was evaluated at the bedside this morning with his present. He reports improvement in his acute right shoulder pain and denies any chest pain. The left femoral catheter remains in place and is planned for removal today. The patient declines further bowel-regimen medications at this time. Rehabilitation placement pending. Exam Vital Signs Temp Pulse Resp BP Pulse Ox O2 Del Method O2 Flow Rate 98.9 F 110 H 18 117/55 L 95 Room Air 2 10/19/25 08:00 10/19/25 08:29 10/19/25 08:05 10/19/25 08:29 10/19/25 08:05 10/19/25 08:00 10/17/25 20:00 Narrative Exam Physical Exam General: Awake and in no acute distress. Conversational and non-toxic appearing. HEENT: Normocephalic, atraumatic, mucous membranes moist. Heart: Regular rate and rhythm, no murmurs. Non-labored respirations, symmetric chest rise, no use of accessory muscles. Lungs: Clear to auscultation with no wheezing or crackles. Abdomen: Soft, nondistended, nontender. No guarding or rebound tenderness. Neurologic: Alert and oriented x3, no gross neurological deficit, and patient able to move all 4 extremities. Extremities: Left lower extremity trace pitting edema up to the knee. 2+ radial pulse bilaterally, 2+ pedal pulse bilaterally. Neuro: No focal deficits observed. Conversant, moving all extremities. No overt cerebellar signs/incoordination. Skin: No rash or ecchymoses. Tattoos. Psychiatric: Cooperative, appropriate mood and affect. Anxious. Objective Labs 10/17/25 05:05 10/17/25 05:05 Quality Measures Quality Measures VTE prophylaxis Advance care planning discussed with:: patient Assessment & Plan Assessment Current Active Medications: Generic Name Dose Route Start Last Admin Trade Name Freq PRN Reason Stop Dose Admin Acetaminophen 650 mg 10/13/25 22:29 10/19/25 05:28 Acetaminophen 325 Mg Tablet PO 11/12/25 22:28 650 mg Q6H PRN Administration Fever >101.5 or pain 1-3 Albuterol/Ipratropium 3 ml 10/14/25 01:09 Albuterol/Ipratropium (Duoneb) Rt Rosalina 3 Ml Nebu INH 11/13/25 01:08 Q2HR PRN SHORTNESS OF BREATH OR WHEEZE Amlodipine Besylate 10 mg 10/14/25 09:00 10/19/25 08:29 Amlodipine Besylate 5 Mg Tablet PO 11/13/25 08:59 10 mg QDAY AYDEE Administration Carbamazepine 300 mg 10/14/25 09:00 10/19/25 08:28 Carbamazepine 100 Mg Chew PO 11/13/25 08:59 300 mg BID AYDEE Administration Gabapentin 300 mg 10/14/25 06:00 10/19/25 05:29 Gabapentin 300 Mg Capsule PO 11/13/25 05:59 300 mg TID AYDEE Administration Hydromorphone HCl 1 mg 10/19/25 01:17 10/19/25 06:34 Hydromorphone Inj 2 Mg/Ml Vial IVP 10/24/25 01:16 1 mg Q4HR PRN Administration PAIN SCALE 7-10 (Severe Levetiracetam 1,500 mg 10/17/25 21:00 10/19/25 08:29 Levetiracetam 250 Mg Tablet PO 11/16/25 20:59 1,500 mg Q12HR AYDEE Administration Losartan Potassium 50 mg 10/14/25 09:00 10/19/25 08:29 Losartan Potassium 25 Mg Tablet PO 11/13/25 08:59 50 mg QDAY AYDEE Administration Methocarbamol 750 mg 10/14/25 06:00 10/19/25 11:10 Methocarbamol 500 Mg Tablet PO 11/13/25 05:59 750 mg QID AYDEE Administration Mirtazapine 15 mg 10/14/25 21:00 10/18/25 21:35 Mirtazapine 15 Mg Tablet PO 11/13/25 20:59 15 mg HS AYDEE Administration Montelukast Sodium 10 mg 10/14/25 21:00 10/18/25 21:36 Montelukast Sodium 10 Mg Tablet PO 11/13/25 20:59 10 mg HS AYDEE Administration Nicotine 14 mg 10/14/25 09:00 10/19/25 08:28 Nicotine Patch 14 Mg/24 Hr Patch.Td24 TOP 11/13/25 08:59 14 mg QDAY AYDEE Administration Oxycodone HCl 5 mg 10/19/25 01:17 10/19/25 01:36 Oxycodone Hcl 5 Mg Ir Tab PO 10/24/25 01:16 5 mg Q4H PRN Administration PAIN SCALE 4-6 (Moderate Polyethylene Glycol 17 gm 10/14/25 09:00 10/19/25 08:32 Polyethylene Glycol 17 Gm Packet PO 11/13/25 08:59 Not Given On Hold: 10/19/25 09:27 BID AYDEE Plan 79-year-old male with a history of TBI, seizures, and right apical lung mass (negative biopsy 09/17/2025) presented with worsening back pain and was transferred to [facility] for thoracic mass and spinal cord compression at T4-T6. He underwent posterior thoracic decompression and fusion from T3-T8 on 10/07/2025, and was transferred back to [facility] on 10/13/2025 for further management. #Left thoracic mass, T4-T6, s/p posterior thoracic decompression and fusion #L4-L5 severe acquired spinal stenosis - Patient presented to [facility] on 10/05 and was transferred to [facility] for neurosurgical management of a left thoracic mass at the T5-T6 level causing spinal cord compression - At [facility], patient underwent posterior thoracic decompression and spinal fusion from T3-T8 on 10/[address] Friedman. - Post-operative course included the placement of a drain, which was removed by the patient on 10/13/2025. - Patient was cleared by neurosurgery and transfer back to [facility] for further management. - CT chest/abdomen/pelvis 10/05/2025 shows a large soft tissue mass measuring about 8 x 6 cm at the T5-T6 level noted to be destroying much of the vertebral bodies and extending to the spinal canal with impingement on the thoracic cord - Thoracic spine MRI 10/05/2025 showed 8.3 x 5.1 cm tumor mass replacing the T5- T6 vertebral bodies, producing severe thoracic cord compression at the T5 level. - Lumbar spine MRI 10/05/2025 showed L4-L5 severe acquired spinal stenosis. - CT CAP 10/05/2025 showed a large soft tissue mass 8 x 6 cm, T5-T6 level, destroying much of these vertebral bodies and extending into the spinal canal likely impinging upon the thoracic cord. - Per records from [facility], CT head with contrast (patient did not tolerate MRI of head) negative for malignant invasion to brain. - Status post posterior thoracic decompression and spinal fusion of spinal cord from T3-T8 performed by Dr. Friedman at [facility] on 10/07. Plan * Continue with wound care. * Pain control with oxycodone IR 5 mg every 4 hours as needed for moderate pain Dilaudid 1 mg IV every 4 hours as needed for severe pain. * Pending authorization for rehab placement. * Follow-up with outpatient neurosurgery. #Acute deep vein thrombosis of the right common femoral and proximal superficial femoral veins - Identified on venous Doppler ultrasound performed on 10/14, which was ordered for leg pain and swelling. - Initiated on heparin drip for anticoagulation management. Heparin drip stopped for IVC filter placement. - Consulted with Dr. Friedman (neurosurgeon at [facility], who performed the thoracic decompression surgery), who recommended avoiding oral anticoagulation for at least 30 days post-operatively due to the patient's recent major vascular surgery and blood transfusion requirements after the surgery. - IVC filter placed on 10/17. Plan: * Monitor CBC. * Neurosurgeon gave okay to discharge with aspirin. #Acute blood loss anemia - Likely from spine surgery on 10/07. - Patient received several transfusion after the surgery at [facility]. - Patient hemoglobins stable, does not require transfusion at the moment, PT, INR, PTT within normal range on prior day. Plan: * Monitor H&H. Transfusing for Hgb <7 or symptomatic. * Avoid NSAIDs/ASA/chemical prophylaxis #Right renal mass - Heterogenously enhancing mass in the right kidney per records from [facility], with mass measuring up to 5.8cm and suggestive of renal cell carcinoma. - A low-dose CT 08/04/2025 here at [facility] showed solid mass on the anterior right kidney was noted, size measuring at least 5.8 cm. Plan: * Consider hematology oncology consult or further outpatient workup. #Right upper lobe lung mass - Low-dose CT lung on 08/04/2025 showed 3.7 cm pulmonary mass right upper lobe with multiple additional nodules. - Lung biopsy 09/17/2025 of right lung mass with pathology report on 09/17/2025 with no malignancy identified. - PET scan 09/29/2025 showed 3 hypermetabolic pulmonary mass right apex 18 x 12 mm, hypermetabolic spiculated pulmonary mass right upper lobe 4.1 x 3.6 cm compared to 3.7 x 3.[address] lung study 08/04/2025. - CT CAP 10/05/2025 showed 18 mm pulmonary mass right apex and 4.1 cm pulmonary mass spiculated margins right upper lobe. - Cocci serology negative. Plan: * Consider hematology oncology consult or further outpatient workup. #Seizure disorder Plan: * Resume home Keppra 1500 mg IV twice daily. * Resume home carbamazepine ER 300 mg twice daily. * Ativan 2 mg every 4 hours IV as needed for seizures. * Seizure precautions. * Neurochecks every 4 hours. #COPD Plan: * Resume Singulair 10 mg nightly. * DuoNebs every 2 hours as needed for shortness of breath or wheeze. #Hypertension, primary - Per records from [facility], patient is unaware of what medications he takes at home for his hypertension. Plan: * Amlodipine 10 mg daily. * Losartan 50 mg daily. #Postoperative reduced oral intake - Patient noted to have decreased oral intake since his surgery on 10/07. - Patient was initially had NG tube placed for tube feeds, however the patient removed his NG tube on 10/12. - Per [facility] records, the patient was eating outside food brought by family and seem to be consuming about 25% of his meals. Plan: * Referral to registered dietitian. * Continue mirtazapine 15 mg nightly as started by [facility]. Health Maintenance Disposition: med surg, pending auth for rehab, march discharge with aspirin DVT prophylaxis: Lovenox GI prophylaxis: N/A Diet: regular CODE STATUS: FULL Patient plan of care was discussed with the senior resident, Dr. Ba Lentz, and attending physician, Dr Almonte . Jyoti Sultana, PGY-1
--- NOTE | 2025-10-19 13:46 | PC.SS ---
Follow up note: SS spoke to Ana Paula Pérez from [facility] who explained they are waiting for insurance authorization and received updated PT notes.
--- NOTE | 2025-10-19 15:05 | PC.SS ---
SS was informed by Ana Paula Pérez from [facility] they had reference number for insurance authorization but since pt did not d/c they require to get another reference number. SS has sent updated inquiry to Jose using [employer].
[2025-10-19] MEDS: MONTELUKAST SODIUM 10 MG TABLET PO (21:26)
[2025-10-19] MEDS: MIRTAZAPINE 15 MG TABLET PO (21:27)
[2025-10-20] VITALS (9 sets, daily range): BP systolic 120–145; BP diastolic 57–67; PULSE 73–92; RESP 16–97; TEMP 36.2–37.5; O2SAT 92–97
[2025-10-20] MEDS: oxyCODONE HCL 5 MG IR TAB PO (02:51)
[2025-10-20] MEDS: GABAPENTIN 300 MG CAPSULE PO ×3 (05:53→21:50)
[2025-10-20] MEDS: NICOTINE PATCH 14 MG/24 HR PATCH.TD24 TOP (09:28)
[2025-10-20] MEDS: LOSARTAN POTASSIUM 25 MG TABLET 50 MG PO (09:29)
--- NOTE | 2025-10-20 10:54 | PC.SS ---
Addendum entered by Laura Gonzalez 10/20/25 14:59: SS met with pt Dtr, Mary outside of pt room as they wish for conversation to be held without pt as he gets anxious. SS explained situation to Mary, Mary was tearful and upset. 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 Mary wishes to appeal denial with insurance, # provided to Mary. Mary also requested SS to re-attempt at [facility]. SS sent inquiry to [facility] and spoke to Dixie. Pending nursing review. Addendum entered by Laura Gonzalez 10/20/25 14:01: 1233: SS received a call from Ana Paula Marquez, in regards to auth. Per [facility] stated, Pt is high functioning and can go home with Home health for PT/OT. A denial letter will be sent to patients home. 1300: SS contacted pt Annamaria Salmon [phone], no answer. Therefore SS called pt dtr Mary Salmon [phone] and informed her of insurance denial. 1315: SS contacted [facility] [phone], Ref #[id number], SS requested a peer to peer, per family request. Per rep a peer to peer was missed for this afternoon. SS informed office services representative SS was never informed of a request for a peer to peer. Per rep a call was made to Ana Paula at [facility], with no success. 1331: SS reached out to [employer] and inquired on why communication was lacked with the insurance request for peer to peer. Per [employer] insurance stated they called hospital. SS requested next time for them to please communicate to social media specialist so we can ensure peer to peer is made. 1340: SS attempted to meet with pt, and dtr at bedside, pt requested for SS to come back later as pt was eating. Original Note: SS reached out to [employer] who stated updated clinicals were requested yesterday but only got already existing information. Therefore [facility] denied and requested updated clinicals again. SS sent updated PT from 10/19 via Ana Paula MOORE stated she will submit and follow up.
--- NOTE | 2025-10-20 12:25 | ESPR_ITS ---
<Statement entered by Kilo Lentz MD - 10/21/25 12:30> Patient was examined and case was reviewed with team including attending physician. Note reviewed, I agree with most of its contents and agree with the patient's care as documented by Dr. Rd Lentz MD PGY-2 Documentation for date of: 10/20/25 Subjective Subjective Interval history: No overnight events. Patient was seen this morning resting comfortably with no complaints at this time. Pending rehab authorization. Exam Vital Signs Temp Pulse Resp BP Pulse Ox O2 Del Method O2 Flow Rate 97.2 F 76 18 120/57 L 92 L Room Air 2 10/20/25 12:00 10/20/25 12:00 10/20/25 12:00 10/20/25 12:00 10/20/25 12:00 10/20/25 12:00 10/17/25 20:00 Narrative Exam Physical Exam General: Awake and in no acute distress. Conversational and non-toxic appearing. HEENT: Normocephalic, atraumatic, mucous membranes moist. Heart: Regular rate and rhythm, no murmurs. Non-labored respirations, symmetric chest rise, no use of accessory muscles. Lungs: Clear to auscultation with no wheezing or crackles. Abdomen: Soft, nondistended, nontender. No guarding or rebound tenderness. Neurologic: Alert and oriented x3, no gross neurological deficit, and patient able to move all 4 extremities. Extremities: Left lower extremity trace pitting edema up to the knee. 2+ radial pulse bilaterally, 2+ pedal pulse bilaterally. Neuro: No focal deficits observed. Conversant, moving all extremities. No overt cerebellar signs/incoordination. Skin: No rash or ecchymoses. Tattoos. Psychiatric: Cooperative, appropriate mood and affect. Anxious. Objective Labs 10/17/25 05:05 10/17/25 05:05 Quality Measures Quality Measures VTE prophylaxis Advance care planning discussed with:: patient Assessment & Plan Assessment Current Active Medications: Generic Name Dose Route Start Last Admin Trade Name Freq PRN Reason Stop Dose Admin Acetaminophen 650 mg 10/13/25 22:29 10/19/25 05:28 Acetaminophen 325 Mg Tablet PO 11/12/25 22:28 650 mg Q6H PRN Administration Fever >101.5 or pain 1-3 Albuterol/Ipratropium 3 ml 10/14/25 01:09 Albuterol/Ipratropium (Duoneb) Rt Rosalina 3 Ml Nebu INH 11/13/25 01:08 Q2HR PRN SHORTNESS OF BREATH OR WHEEZE Amlodipine Besylate 10 mg 10/14/25 09:00 10/20/25 09:28 Amlodipine Besylate 5 Mg Tablet PO 11/13/25 08:59 10 mg QDAY AYDEE Administration Carbamazepine 300 mg 10/14/25 09:00 10/20/25 09:28 Carbamazepine 100 Mg Chew PO 11/13/25 08:59 300 mg BID AYDEE Administration Gabapentin 300 mg 10/14/25 06:00 10/20/25 05:53 Gabapentin 300 Mg Capsule PO 11/13/25 05:59 300 mg TID AYDEE Administration Hydromorphone HCl 1 mg 10/19/25 01:17 10/19/25 06:34 Hydromorphone Inj 2 Mg/Ml Vial IVP 10/24/25 01:16 1 mg Q4HR PRN Administration PAIN SCALE 7-10 (Severe Levetiracetam 1,500 mg 10/17/25 21:00 10/20/25 09:28 Levetiracetam 250 Mg Tablet PO 11/16/25 20:59 1,500 mg Q12HR AYDEE Administration Losartan Potassium 50 mg 10/14/25 09:00 10/20/25 09:29 Losartan Potassium 25 Mg Tablet PO 11/13/25 08:59 50 mg QDAY AYDEE Administration Methocarbamol 750 mg 10/14/25 06:00 10/20/25 11:43 Methocarbamol 500 Mg Tablet PO 11/13/25 05:59 750 mg QID AYDEE Administration Mirtazapine 15 mg 10/14/25 21:00 10/19/25 21:27 Mirtazapine 15 Mg Tablet PO 11/13/25 20:59 15 mg HS AYDEE Administration Montelukast Sodium 10 mg 10/14/25 21:00 10/19/25 21:26 Montelukast Sodium 10 Mg Tablet PO 11/13/25 20:59 10 mg HS AYDEE Administration Nicotine 14 mg 10/14/25 09:00 10/20/25 09:28 Nicotine Patch 14 Mg/24 Hr Patch.Td24 TOP 11/13/25 08:59 14 mg QDAY AYDEE Administration Oxycodone HCl 5 mg 10/19/25 01:17 10/20/25 02:51 Oxycodone Hcl 5 Mg Ir Tab PO 10/24/25 01:16 5 mg Q4H PRN Administration PAIN SCALE 4-6 (Moderate Polyethylene Glycol 17 gm 10/14/25 09:00 10/19/25 08:32 Polyethylene Glycol 17 Gm Packet PO 11/13/25 08:59 Not Given On Hold: 10/19/25 09:27 BID AYDEE Plan 79-year-old male with a history of TBI, seizures, and right apical lung mass (negative biopsy 09/17/2025) presented with worsening back pain and was transferred to [facility] for thoracic mass and spinal cord compression at T4-T6. He underwent posterior thoracic decompression and fusion from T3-T8 on 10/07/2025, and was transferred back to [facility] on 10/13/2025 for further management. #Left thoracic mass, T4-T6, s/p posterior thoracic decompression and fusion #L4-L5 severe acquired spinal stenosis - Patient presented to [facility] on 10/05 and was transferred to [facility] for neurosurgical management of a left thoracic mass at the T5-T6 level causing spinal cord compression - At [facility], patient underwent posterior thoracic decompression and spinal fusion from T3-T8 on 10/[address] Friedman. - Post-operative course included the placement of a drain, which was removed by the patient on 10/13/2025. - Patient was cleared by neurosurgery and transfer back to [facility] for further management. - CT chest/abdomen/pelvis 10/05/2025 shows a large soft tissue mass measuring about 8 x 6 cm at the T5-T6 level noted to be destroying much of the vertebral bodies and extending to the spinal canal with impingement on the thoracic cord - Thoracic spine MRI 10/05/2025 showed 8.3 x 5.1 cm tumor mass replacing the T5- T6 vertebral bodies, producing severe thoracic cord compression at the T5 level. - Lumbar spine MRI 10/05/2025 showed L4-L5 severe acquired spinal stenosis. - CT CAP 10/05/2025 showed a large soft tissue mass 8 x 6 cm, T5-T6 level, destroying much of these vertebral bodies and extending into the spinal canal likely impinging upon the thoracic cord. - Per records from [facility], CT head with contrast (patient did not tolerate MRI of head) negative for malignant invasion to brain. - Status post posterior thoracic decompression and spinal fusion of spinal cord from T3-T8 performed by Dr. Friedman at [facility] on 10/07. Plan * Continue with wound care. * Pain control with oxycodone IR 5 mg every 4 hours as needed for moderate pain Dilaudid 1 mg IV every 4 hours as needed for severe pain. * Pending authorization for rehab placement. * Follow-up with outpatient neurosurgery. #Acute deep vein thrombosis of the right common femoral and proximal superficial femoral veins - Identified on venous Doppler ultrasound performed on 10/14, which was ordered for leg pain and swelling. - Initiated on heparin drip for anticoagulation management. Heparin drip stopped for IVC filter placement. - Consulted with Dr. Friedman (neurosurgeon at [facility], who performed the thoracic decompression surgery), who recommended avoiding oral anticoagulation for at least 30 days post-operatively due to the patient's recent major vascular surgery and blood transfusion requirements after the surgery. - IVC filter placed on 10/17. Plan: * Monitor CBC. * Neurosurgeon gave okay to discharge with aspirin. #Acute blood loss anemia - Likely from spine surgery on 10/07. - Patient received several transfusion after the surgery at [facility]. - Patient hemoglobins stable, does not require transfusion at the moment, PT, INR, PTT within normal range on prior day. Plan: * Monitor H&H. Transfusing for Hgb <7 or symptomatic. * Avoid NSAIDs/ASA/chemical prophylaxis #Right renal mass - Heterogenously enhancing mass in the right kidney per records from [facility], with mass measuring up to 5.8cm and suggestive of renal cell carcinoma. - A low-dose CT 08/04/2025 here at [facility] showed solid mass on the anterior right kidney was noted, size measuring at least 5.8 cm. Plan: * Consider hematology oncology consult or further outpatient workup. #Right upper lobe lung mass - Low-dose CT lung on 08/04/2025 showed 3.7 cm pulmonary mass right upper lobe with multiple additional nodules. - Lung biopsy 09/17/2025 of right lung mass with pathology report on 09/17/2025 with no malignancy identified. - PET scan 09/29/2025 showed 3 hypermetabolic pulmonary mass right apex 18 x 12 mm, hypermetabolic spiculated pulmonary mass right upper lobe 4.1 x 3.6 cm compared to 3.7 x 3.[address] lung study 08/04/2025. - CT CAP 10/05/2025 showed 18 mm pulmonary mass right apex and 4.1 cm pulmonary mass spiculated margins right upper lobe. - Cocci serology negative. Plan: * Consider hematology oncology consult or further outpatient workup. #Seizure disorder Plan: * Resume home Keppra 1500 mg IV twice daily. * Resume home carbamazepine ER 300 mg twice daily. * Ativan 2 mg every 4 hours IV as needed for seizures. * Seizure precautions. * Neurochecks every 4 hours. #COPD Plan: * Resume Singulair 10 mg nightly. * DuoNebs every 2 hours as needed for shortness of breath or wheeze. #Hypertension, primary - Per records from [facility], patient is unaware of what medications he takes at home for his hypertension. Plan: * Amlodipine 10 mg daily. * Losartan 50 mg daily. #Postoperative reduced oral intake - Patient noted to have decreased oral intake since his surgery on 10/07. - Patient was initially had NG tube placed for tube feeds, however the patient removed his NG tube on 10/12. - Per [facility] records, the patient was eating outside food brought by family and seem to be consuming about 25% of his meals. Plan: * Referral to registered dietitian. * Continue mirtazapine 15 mg nightly as started by [facility]. Health Maintenance Disposition: med surg, pending auth for rehab, march discharge with aspirin DVT prophylaxis: Lovenox GI prophylaxis: N/A Diet: regular CODE STATUS: FULL Patient plan of care was discussed with the senior resident, Dr. Ba Lentz, and attending physician, Dr. Borja. Jyoti Sultana DO PGY-1 Attending Provider Attestation/Addendum I have seen and examined the patient. I was physically present for the zheng portions of the services provided including history, physical exam, diagnosis, treatment plans and orders. I agree with assessment and plan of care as documented by residents. Even though this this note was carefully revised there may still be minor errors in associate sales representative due to voice recognition software. Francisca Borja MD
[2025-10-20] MEDS: HYDROmorphone INJ 2 MG/ML VIAL 1 MG IVP ×3 (13:17→22:41)
--- NOTE | 2025-10-20 15:09 | PC.SS ---
Addendum entered by Laura Gonzalez 10/20/25 15:16: SS received a call from Dixie at [facility] who stated they can accommodate pt, and will submit for auth pending new PT documentation. Original Note: SS spoke to PTJose Ramon who stated pt re-eval will be submitted. SS pending documentation to submit to [facility].
--- NOTE | 2025-10-20 15:35 | PC.NURSE ---
DISCHARGE ORDERS ARE IN. PATIENT IS APPEALING THE DISCHARGE
--- NOTE | 2025-10-20 16:22 | PC.CC ---
Informed by SS that daughter, Mary, intends to appeal discharge. No fax confirmation received from [facility]. S/W Mary via phone who confirmed appeal and provided ID# [id number]. Called [facility] to obtain EMR montanez, however, unable to speak to a nutrition representative. Clinical documents prepared for upload to portal. Awaiting EMR Montane[employer]. Will follow-up.
[2025-10-20] MEDS: MONTELUKAST SODIUM 10 MG TABLET PO (21:50)
[2025-10-20] MEDS: MIRTAZAPINE 15 MG TABLET PO (21:50)
[2025-10-21] VITALS (9 sets, daily range): BP systolic 122–141; BP diastolic 58–87; PULSE 78–89; RESP 16–97; TEMP 36.2–36.9; O2SAT 96–97
[2025-10-21] MEDS: GABAPENTIN 300 MG CAPSULE PO ×2 (05:31→13:07)
[2025-10-21] MEDS: HYDROmorphone INJ 2 MG/ML VIAL 1 MG IVP ×2 (05:32→12:50)
[2025-10-21] MEDS: LOSARTAN POTASSIUM 25 MG TABLET 50 MG PO (08:13)
[2025-10-21] MEDS: NICOTINE PATCH 14 MG/24 HR PATCH.TD24 TOP (08:15)
--- NOTE | 2025-10-21 08:19 | PC.SS ---
Addendum entered by Laura Gonzalez 10/21/25 14:35: SS spoke to Mary who wishes to wait for appeal. SS checked appeal and still in documents received stage. SS will check tomorrow at begining of shift and communicate with Mary and Dixie from [facility]. Per Dixie auth is good until 10/23 Addendum entered by Laura Gonzalez 10/21/25 13:57: Auth approved for [facility], SS contacted Mary Salmon [phone] pt dtr to provide update as pt is ready for DC. Per Mary she spoke to Team and they are pending pathology report from [facility]. SS informed Mary this isnt something that would delay DC as no treatment will be started here at the hospital. SS also explained to Mary that pt would not be able to do [facility] Treatment while pt is at SNF due to high cost for treatment. Mary stated what is she supposed to do. SS explained while information is all preliminary, pt can DC to SNF while auth is provided, get rehab while establishing treatment plans and options. When they have made a plan for treatment pt can transition home to do treatment. Mary stated Team didn't seem like they were going to still DC pt. SS informed Mary SS had meeting with Team at 1400 and would get a better understanding of the plan and can have them call her with SS. SS updated Dixie at [facility] who is on standby for pt DC to their facility today. Appeal is still pending if Mary wishes to wait for outcome that is an option, but if she wishes to send pt to [facility] today that is also an option. Addendum entered by Laura Gonzalez 10/21/25 10:44: SS confirmed clinicals were received by insurance, pending review Addendum entered by Laura Gonzalez 10/21/25 09:54: [facility] has initiated auth Original Note: Updated PT notes submitted to [facility] for auth
--- NOTE | 2025-10-21 09:50 | PC.SS ---
Addendum entered by Laura Gonzalez 10/21/25 11:43: Letter retrieved, SS submitted documentation via Online Portal Submission Tracking ID is [id number] Original Note: [facility] file [id number] submitted via XM fax to [phone] due to no letter being received
--- NOTE | 2025-10-21 10:47 | ESPR_ITS ---
<Statement entered by Damain Mckinney MD - 10/22/25 13:43> In summary: An 79-year-old male with a history of TBI, seizures, right apical lung mass, and spinal issues was transferred to [facility] for management of a thoracic mass causing spinal cord compression at T4-T6, where he underwent posterior thoracic decompression and spinal fusion from T3-T8 on 10/07/2025. Postoperatively he developed DVT of lower extremity for which he underwent successful IVC filter placement given contraindication for anticoagulation (per neurosurgery recommendations). Pathology results from his most recent spinal surgery showed metastatic renal cell carcinoma. The findings of RCC to the spine was communicated to the patient and family with empathy and clarity, resources and recommendations for close outpatient oncology follow-up or also provided, along with emotional support. Overall remains medically stable. I?ve reviewed the note and agree with this assessment and plan, with the exceptions outlined above. I personally went over the labs, imaging, home medications, and prior records, and examined the patient. The case was also reviewed with the attending physician. Please note: this document was transcribed using voice recognition technology; minor inaccuracies may be present. Damian Mckinney DO PGY II Documentation for date of: 10/21/25 Subjective Subjective Interval history: No overnight events. Patient was seen this morning resting comfortably with no complaints at this time. Rehab authorization is still pending. The patient's daughter inquired about the biopsy pathology results from the surgery performed at [facility]. Able to obtain a copy of the pathology report from [facility] - mets of cell renal cell carcinoma. Exam Vital Signs Temp Pulse Resp BP Pulse Ox O2 Del Method O2 Flow Rate 97.2 F 83 16 141/87 H 97 Room Air 2 10/21/25 07:42 10/21/25 08:15 10/21/25 07:42 10/21/25 08:15 10/21/25 07:42 10/21/25 07:42 10/17/25 20:00 Narrative Exam Physical Exam General: Awake and in no acute distress. Conversational and non-toxic appearing. HEENT: Normocephalic, atraumatic, mucous membranes moist. Heart: Regular rate and rhythm, no murmurs. Non-labored respirations, symmetric chest rise, no use of accessory muscles. Lungs: Clear to auscultation with no wheezing or crackles. Abdomen: Soft, nondistended, nontender. No guarding or rebound tenderness. Neurologic: Alert and oriented x3, no gross neurological deficit, and patient able to move all 4 extremities. Extremities: Left lower extremity trace pitting edema up to the knee. 2+ radial pulse bilaterally, 2+ pedal pulse bilaterally. Neuro: No focal deficits observed. Conversant, moving all extremities. No overt cerebellar signs/incoordination. Skin: No rash or ecchymoses. Tattoos. Psychiatric: Cooperative, appropriate mood and affect. Anxious. Objective Labs 10/17/25 05:05 10/17/25 05:05 Quality Measures Quality Measures VTE prophylaxis Advance care planning discussed with:: patient Assessment & Plan Assessment Current Active Medications: Generic Name Dose Route Start Last Admin Trade Name Freq PRN Reason Stop Dose Admin Acetaminophen 650 mg 10/13/25 22:29 10/19/25 05:28 Acetaminophen 325 Mg Tablet PO 11/12/25 22:28 650 mg Q6H PRN Administration Fever >101.5 or pain 1-3 Albuterol/Ipratropium 3 ml 10/14/25 01:09 Albuterol/Ipratropium (Duoneb) Rt Rosalina 3 Ml Nebu INH 11/13/25 01:08 Q2HR PRN SHORTNESS OF BREATH OR WHEEZE Amlodipine Besylate 10 mg 10/14/25 09:00 10/21/25 08:15 Amlodipine Besylate 5 Mg Tablet PO 11/13/25 08:59 10 mg QDAY AYDEE Administration Carbamazepine 300 mg 10/14/25 09:00 10/21/25 08:14 Carbamazepine 100 Mg Chew PO 11/13/25 08:59 300 mg BID AYDEE Administration Gabapentin 300 mg 10/14/25 06:00 10/21/25 05:31 Gabapentin 300 Mg Capsule PO 11/13/25 05:59 300 mg TID AYDEE Administration Hydromorphone HCl 1 mg 10/19/25 01:17 10/21/25 05:32 Hydromorphone Inj 2 Mg/Ml Vial IVP 10/24/25 01:16 1 mg Q4HR PRN Administration PAIN SCALE 7-10 (Severe Levetiracetam 1,500 mg 10/17/25 21:00 10/21/25 08:14 Levetiracetam 250 Mg Tablet PO 11/16/25 20:59 1,500 mg Q12HR AYDEE Administration Losartan Potassium 50 mg 10/14/25 09:00 10/21/25 08:13 Losartan Potassium 25 Mg Tablet PO 11/13/25 08:59 50 mg QDAY AYDEE Administration Methocarbamol 750 mg 10/14/25 06:00 10/21/25 05:32 Methocarbamol 500 Mg Tablet PO 11/13/25 05:59 750 mg QID AYDEE Administration Mirtazapine 15 mg 10/14/25 21:00 10/20/25 21:50 Mirtazapine 15 Mg Tablet PO 11/13/25 20:59 15 mg HS AYDEE Administration Montelukast Sodium 10 mg 10/14/25 21:00 10/20/25 21:50 Montelukast Sodium 10 Mg Tablet PO 11/13/25 20:59 10 mg HS AYDEE Administration Nicotine 14 mg 10/14/25 09:00 10/21/25 08:15 Nicotine Patch 14 Mg/24 Hr Patch.Td24 TOP 11/13/25 08:59 14 mg QDAY AYDEE Administration Oxycodone HCl 5 mg 10/19/25 01:17 10/20/25 02:51 Oxycodone Hcl 5 Mg Ir Tab PO 10/24/25 01:16 5 mg Q4H PRN Administration PAIN SCALE 4-6 (Moderate Polyethylene Glycol 17 gm 10/14/25 09:00 10/19/25 08:32 Polyethylene Glycol 17 Gm Packet PO 11/13/25 08:59 Not Given On Hold: 10/19/25 09:27 BID AYDEE Plan 79-year-old male with a history of TBI, seizures, and right apical lung mass (negative biopsy 09/17/2025) presented with worsening back pain and was transferred to [facility] for thoracic mass and spinal cord compression at T4-T6. He underwent posterior thoracic decompression and fusion from T3-T8 on 10/07/2025, and was transferred back to [facility] on 10/13/2025 for further management. #Left thoracic mass, T4-T6, s/p posterior thoracic decompression and fusion #L4-L5 severe acquired spinal stenosis - Patient presented to [facility] on 10/05 and was transferred to [facility] for neurosurgical management of a left thoracic mass at the T5-T6 level causing spinal cord compression - At [facility], patient underwent posterior thoracic decompression and spinal fusion from T3-T8 on 10/[address] Friedman. - Post-operative course included the placement of a drain, which was removed by the patient on 10/13/2025. - Patient was cleared by neurosurgery and transfer back to [facility] for further management. - CT chest/abdomen/pelvis 10/05/2025 shows a large soft tissue mass measuring about 8 x 6 cm at the T5-T6 level noted to be destroying much of the vertebral bodies and extending to the spinal canal with impingement on the thoracic cord - Thoracic spine MRI 10/05/2025 showed 8.3 x 5.1 cm tumor mass replacing the T5- T6 vertebral bodies, producing severe thoracic cord compression at the T5 level. - Lumbar spine MRI 10/05/2025 showed L4-L5 severe acquired spinal stenosis. - CT CAP 10/05/2025 showed a large soft tissue mass 8 x 6 cm, T5-T6 level, destroying much of these vertebral bodies and extending into the spinal canal likely impinging upon the thoracic cord. - Per records from [facility], CT head with contrast (patient did not tolerate MRI of head) negative for malignant invasion to brain. - Status post posterior thoracic decompression and spinal fusion of spinal cord from T3-T8 performed by Dr. Friedman at [facility] on 10/07. Plan * Continue with wound care. * Pain control with oxycodone IR 5 mg every 4 hours as needed for moderate pain Dilaudid 1 mg IV every 4 hours as needed for severe pain. * Pending authorization for rehab placement. * Follow-up with outpatient neurosurgery. #Acute deep vein thrombosis of the right common femoral and proximal superficial femoral veins - Identified on venous Doppler ultrasound performed on 10/14, which was ordered for leg pain and swelling. - Initiated on heparin drip for anticoagulation management. Heparin drip stopped for IVC filter placement. - Consulted with Dr. Friedman (neurosurgeon at [facility], who performed the thoracic decompression surgery), who recommended avoiding oral anticoagulation for at least 30 days post-operatively due to the patient's recent major vascular surgery and blood transfusion requirements after the surgery. - IVC filter placed on 10/17. Plan: * Monitor CBC. * Neurosurgeon gave okay to discharge with aspirin. #Acute blood loss anemia - Likely from spine surgery on 10/07. - Patient received several transfusion after the surgery at [facility]. - Patient hemoglobins stable, does not require transfusion at the moment, PT, INR, PTT within normal range on prior day. Plan: * Monitor H&H. Transfusing for Hgb <7 or symptomatic. * Avoid NSAIDs/ASA/chemical prophylaxis #Right renal mass - Heterogenously enhancing mass in the right kidney per records from [facility], with mass measuring up to 5.8cm and suggestive of renal cell carcinoma. - A low-dose CT 08/04/2025 here at [facility] showed solid mass on the anterior right kidney was noted, size measuring at least 5.8 cm. Plan: * Consider hematology oncology consult or further outpatient workup. #Right upper lobe lung mass - Low-dose CT lung on 08/04/2025 showed 3.7 cm pulmonary mass right upper lobe with multiple additional nodules. - Lung biopsy 09/17/2025 of right lung mass with pathology report on 09/17/2025 with no malignancy identified. - PET scan 09/29/2025 showed 3 hypermetabolic pulmonary mass right apex 18 x 12 mm, hypermetabolic spiculated pulmonary mass right upper lobe 4.1 x 3.6 cm compared to 3.7 x 3[address] lung study 08/04/2025. - CT CAP 10/05/2025 showed 18 mm pulmonary mass right apex and 4.1 cm pulmonary mass spiculated margins right upper lobe. - Cocci serology negative. Plan: * Consider hematology oncology consult or further outpatient workup. #Seizure disorder Plan: * Resume home Keppra 1500 mg IV twice daily. * Resume home carbamazepine ER 300 mg twice daily. * Ativan 2 mg every 4 hours IV as needed for seizures. * Seizure precautions. * Neurochecks every 4 hours. #COPD Plan: * Resume Singulair 10 mg nightly. * DuoNebs every 2 hours as needed for shortness of breath or wheeze. #Hypertension, primary - Per records from [facility], patient is unaware of what medications he takes at home for his hypertension. Plan: * Amlodipine 10 mg daily. * Losartan 50 mg daily. #Postoperative reduced oral intake - Patient noted to have decreased oral intake since his surgery on 10/07. - Patient was initially had NG tube placed for tube feeds, however the patient removed his NG tube on 10/12. - Per [facility] records, the patient was eating outside food brought by family and seem to be consuming about 25% of his meals. Plan: * Referral to registered dietitian. * Continue mirtazapine 15 mg nightly as started by [facility]. Health Maintenance Disposition: med surg, pending auth for rehab, may discharge with aspirin DVT prophylaxis: Lovenox GI prophylaxis: N/A Diet: regular CODE STATUS: FULL --- Patient plan of care was discussed with the senior resident, Dr. Ba Lentz, and attending physician, Dr. Borja. Jyoti Sultana DO PGY-1 Attending Provider Attestation/Addendum I have seen and examined the patient. I was physically present for the zheng portions of the services provided including history, physical exam, diagnosis, treatment plans and orders. I agree with assessment and plan of care as documented by residents. Even though this this note was carefully revised there may still be minor errors in vegetable canner due to voice recognition software. Francisca Borja MD
--- NOTE | 2025-10-21 15:02 | ESDS_ITS ---
Planned Discharge Date 10/21/25 DS: Providers Provider Date of admission: 10/13/25 22:24 Primary care physician: Qiana Howard MD Admitting Provider: Fermin Lopez DO Attending Provider on Admission: Siva Almonte MD Consults: 10/14/25 00:12 PT [Referral Physical Therapy] Routine Comment: Physician Instructions: 10/14/25 00:13 Referral Wound Care Routine Comment: 10/14/25 01:14 Referral Registered Dietitian Routine Comment: 10/14/25 08:00 Referral Speech Therapy Urgent Comment: Attending Provider on DC: Francisca Borja MD Discharging Provider: Jyoti Sultana DO Anticipated date of discharge: 10/21/25 DS: Diagnosis Problem List Completed Was Problem List Reviewed/Reconciled?: Yes Hospital Course Hospital Course Hospital course: 79-year-old male with a history of TBI, seizures, and a right apical lung mass (biopsy negative for malignancy on 09/17/2025) who presented to the hospital on 10/05/2025 with worsening back pain. Imaging revealed a left thoracic mass at T5-T6 causing spinal cord compression. He was transferred to [facility], where he underwent posterior thoracic decompression and fusion from T3-T8 on 10/07/2025. Post-surgery, the patient was transferred back to [facility] on 10/13/2025 for further care. During his hospital course, the patient was noted to have acute deep vein thrombosis of the right common femoral and proximal superficial femoral veins, managed with a heparin drip. Following discussions with neurosurgery, oral anticoagulation needs to be withheld for 30 days post-op, and an IVC filter was placed. The patient has been stable and had physical therapy. Additionally, the patient was found to have a heterogeneously enhancing right renal mass, suspected to be renal cell carcinoma, and further workup is planned. His lung mass, previously biopsied and found to be non-malignant, showed no significant change, though ongoing evaluation is recommended. The patient?s seizure disorder was managed with Keppra and carbamazepine, and his COPD was managed with Singulair and DuoNebs. He also has a history of hypertension, for which amlodipine and losartan were resumed. Obtained pathology report from [facility] which showed metastatic clear-cell renal cell carcinoma. Patient is medically and physically stable for discharge. Diagnosis: #Metastatic clear-cell renal cell carcinoma #Left thoracic mass, T4-T6, s/p posterior thoracic decompression and fusion #L4-L5 severe acquired spinal stenosis #Acute deep vein thrombosis of the right common femoral and proximal superficial femoral veins #Acute blood loss anemia #Right renal mass #Right upper lobe lung mass #Seizure disorder #COPD #Hypertension Discharge Plan: - Follow up with primary care physician within 1 week. Need PCP referral to outpatient oncology. - Instructions have been explained to the patient with regards to their medications and how to take them. Patient was able to explain back to physician and nursing staff how to take their medications. Patient expressed understanding with instructions. - STOP taking Lisinopril. - Continue to take the rest of your medications as prescribed by your primary care physician. Patient has been explained that should any symptoms recur or worsen patient is instructed to return to the Emergency Department. --- Case discussed with my attending Dr. Borja. Jyoti Sultana, DO PGY-1 Status at Discharge Overall status at discharge: patient is back to baseline Time Spent with Patient Time attestation: Total time spent providing and/or coordinating discharge services: 40 minutes Time spent: Greater than 30 minutes Exam Vital Signs Temp Pulse Resp BP Pulse Ox O2 Del Method O2 Flow Rate 97.2 F 79 18 135/60 H 97 Room Air 2 10/21/25 12:00 10/21/25 12:00 10/21/25 12:00 10/21/25 12:00 10/21/25 12:00 10/21/25 12:00 10/17/25 20:00 Discharge Plan Plan Patient Disposition: Xfer Skilled Nsg Fac (SNF) Care Plan Goals: Follow up with primary care physician within 1 week of discharge Instructions have been explained to the patient with regards to their medications and how to take them. Patient was able to explain back to physician and nursing staff how to take their medications. Patient expressed understanding with instructions. STOP taking Lisinopril. Continue to take the rest of your medications as prescribed by your primary care physician. Patient has been explained that should any symptoms recur or worsen patient is instructed to return to the Emergency Department. Prescriptions/Referrals Prescriptions/Med Rec: Continued levetiracetam 500 mg tablet 1,000 mg PO BID ondansetron 4 mg tablet,disintegrating 4 mg PO Q8H PRN (Reason: nausea and vomiting) hydrocodone-acetaminophen 10-325 mg tablet 1 tab PO Q8H PRN (Reason: pain) Patient Comments: TAKE 1 TABLET BY MOUTH THREE TIMES DAILY NEEDED amlodipine 10 mg tablet 10 mg PO QDAY Patient Comments: TAKE 1 TABLET BY MOUTH ONCE DAILY gabapentin 300 mg capsule 300 mg PO TID losartan 50 mg tablet 50 mg PO QDAY methocarbamol 750 mg tablet 750 mg PO QID mirtazapine 15 mg tablet 15 mg PO HS montelukast [Singulair] 10 mg tablet 10 mg PO QPM polyethylene glycol 3350 [Miralax] 17 gram powder in packet 17 g PO BID carbamazepine 300 mg capsule, ER multiphase 12 hr 300 mg PO Q12H aspirin 81 mg tablet 81 mg PO QDAY Discontinued lisinopril 20 mg tablet 20 mg PO DAILY Referrals: Qiana Howard MD [Primary Care Provider, Family Practice] Patient/Caregiver Discharge Instructions Print Language: Syriac Stand Alone Forms: Patience Award Info., Patient Portal Info Letter Discharge Order Discharge Orders: Discharge (Routine); Ordered 10/20/25 Ordered By: Kilo Lentz Quality Discharge Quality Measures VTE prophylaxis MD Attestestation MD Attestation I have seen and examined the patient. I was physically present for the zheng portions of the services provided including history, physical exam, diagnosis, treatment plans and orders. I agree with assessment and plan of care as documented by residents. Even though this this note was carefully revised there may still be minor errors in wool washer feeder due to voice recognition software. Francisca Borja MD
--- NOTE | 2025-10-21 15:27 | PC.SS ---
SS spoke to Mary Salmon [phone] pt dtr who wishes to DC pt today not tomorrow. SHANA, Latosha to help assist with transport
[2025-10-21] MEDS: oxyCODONE HCL 5 MG IR TAB PO (18:16)
--- NOTE | 2025-10-21 19:12 | PC.NURSE ---
per social service Latosha. patient transport was scheduled for [id number]. as of 19:15, transport has not arrived. theres no note transport provider. community specialist contacted Laura.
== END 2025-10-21 19:42 | disposition skilled nursing facility (03) | DRG 300 ==
PROVIDERS: Admitting Provider Student in an Organized Health Care Education/Training Program; PCP Family Medicine; Visit Provider Internal Medicine
DX: I82.411 Acute embolism and thrombosis of right femoral vein (principal); C64.9 Malignant neoplasm of unspecified kidney, except renal pelvis; D62 Acute posthemorrhagic anemia; G99.2 Myelopathy in diseases classified elsewhere; M54.50 Low back pain, unspecified; R29.6 Repeated falls; M25.519 Pain in unspecified shoulder; G89.29 Other chronic pain; M48.061 Spinal stenosis, lumbar region without neurogenic claudication; N28.89 Other specified disorders of kidney and ureter; R07.89 Other chest pain; R91.8 Other nonspecific abnormal finding of lung field; G40.909 Epilepsy, unspecified, not intractable, without status epilepticus; J44.9 Chronic obstructive pulmonary disease, unspecified; M48.04 Spinal stenosis, thoracic region; I10 Essential (primary) hypertension; Z87.820 Personal history of traumatic brain injury; Z79.82 Long term (current) use of aspirin; Z79.899 Other long term (current) drug therapy
CPT/HCPCS: 36415; 70450; 71045; 80053; 83735; 84100; 84484; 85025; 85610; 85730; 86331; 86635; 87081; 92610; 93005; 93971; 94664; 94762; 97163; C1769; C1880; C1894; J1171; J1642; J1644; J1953; J3010; J3475; J3480; J3490; J7050; Q9967; A9270

== ENCOUNTER 2025-11-03 12:59 | Outpatient (RCR) | payer MEDICARE, SELFPAY ==
--- NOTE | 2025-11-03 02:59 | CTCCONSULT_ITS ---
Patient: GERONIMO EARLY : 1945 MR#: [id number] Page 2 of 6 CONSULTATION NOTE DATE OF CONSULTATION: 10/29/2025 NAME: GERONIMO EARLY ACCOUNT: [id number] : 1945 AGE: 79 REFERRING PHYSICIAN: Qiana Howard MD PRIMARY PHYSICIAN: Qiana Howard MD REASON FOR VISIT: Establishing care for new kidney cancer ONCOLOGY HISTORY: DIAGNOSIS: Malignant neoplasm of right kidney, except renal pelvis [ICD10] C64.1 DATE OF DIAGNOSIS: 09/17/2025 STAGE/TNM: IV T1 N1 M1 TREATMENT HISTORY: Care?Plan Start?Date Cycle Day Intent Axitinib?and?Pembrolizumab 10/29/202512 02 Palliative HISTORY OF PRESENT ILLNESS: 79-year-old male diagnosed with lidney cancer on lung biopsy . patient is very worried and want treatment. OTHER MEDICAL HISTORY/CONDITIONS: siezure hypertension Lt hip replacement-2022 thorastic surgery- 09/2025 FAMILY HISTORY: Father:?skin?cancer Mother:?none Sibling:?none Children:?daughter-renal?cell?carcinoma Cancer?History:?none SOCIAL HISTORY: Occupational?History:?retired Education?Level:?Completed 10th grade Marital?Status:? Tobacco?Use:?chews?tabacco?+20?yrs MEDICATIONS: 1. axitinib - 1 mg 2 tab Daily 2. Colace 2-In-1 - 8.6-50 mg 2 tab Daily 3. dexamethasone - 4 mg 1 tab every 8 hrs 4. hydrocodone-acetaminophen - 5-325 mg 1 tab 1 tab every 8 hrs as needed for pain 5. ondansetron HCl - 8 mg 1 tab every 8 hrs as needed for prn Medications Last Reconciled by Keyonna Santana MD on 10/29/2025 ALLERGIES: No Known Drug Allergies REVIEW OF SYSTEMS: A complete 14-point review of systems was performed and is negative except as noted in interval history. PHYSICAL EXAMINATION: VITAL SIGNS: Temperature?98.3, B/P?172/80, Height?66?inches, Oxygen?Saturation?95% Weight?143?lbs PAIN: 6 - Severe pain ECOG Performance Status: 2 - Symptomatic; ambulatory; capable of self-care; >50% of waking hrs. not in bed GENERAL APPEARANCE: Appears well, in no apparent distress, appropriately interactive. HEENT: Normocephalic, no temporal wasting, normal conjunctiva, no scleral icterus, normal hearing, lips without lesions, neck normal range of motion. CARDIOVASCULAR: Not assessed. PULMONARY: Normal respiratory effort, no respiratory distress or use of accessory muscles, speaking in full sentences, no tachypnea. EXTREMITIES: No pedal edema or cyanosis. SKIN: Normal skin appearance. NEUROLOGIC: Alert and oriented x4. PSHYCHIATRIC: Appropriate affect, mood normal, behavior normal, intact thought and speech. LABORATORY DATA: I have personally reviewed and interpreted each of the patient?s relevant lab tests, abnormal findings are below: Date ASSESSMENT/PLAN: Stage 4 metastatic renal cancer Lung biopsy showed renal cancer Crow tart on axitinib and keytruda Port catheter placement Will start keytruda with ow dose axitinib Overall prognosis poor Ordered brain mri to evaluate for brain lesions if any Radiation oncology for palliative radiation for pain management ORDERS: Order # Description [id number] CBC + Comprehensive Metabolic Panel [id number] Lab Appointment [id number] Follow Up Appointment [id number] CBC + Comprehensive Metabolic Panel [id number] Lab Appointment [id number] Follow Up Appointment [id number] CBC + Comprehensive Metabolic Panel [id number] Lab Appointment [id number] Follow Up Appointment [id number] CBC + Comprehensive Metabolic Panel [id number] Lab Appointment [id number] Follow Up Appointment [id number] CBC + Comprehensive Metabolic Panel [id number] Lab Appointment [id number] Follow Up Appointment [id number] CBC + Comprehensive Metabolic Panel [id number] Lab Appointment [id number] Follow Up Appointment [id number] CBC + Comprehensive Metabolic Panel [id number] Lab Appointment [id number] Follow Up Appointment [id number] CBC + Comprehensive Metabolic Panel [id number] Lab Appointment [id number] Follow Up Appointment [id number] CBC + Comprehensive Metabolic Panel [id number] Lab Appointment [id number] Follow Up Appointment [id number] CBC + Comprehensive Metabolic Panel [id number] Lab Appointment [id number] Follow Up Appointment [id number] CBC + Comprehensive Metabolic Panel [id number] Lab Appointment [id number] Follow Up Appointment [id number] CBC + Comprehensive Metabolic Panel [id number] Lab Appointment [id number] Follow Up Appointment RETURN TO CLINIC: I reviewed the diagnosis, prognosis, and recommended treatment/procedure options with the patient (and/or their legal disability representative), including the potential benefits, risks, side effects and alternative therapies. We also discussed the option of no treatment and the possibility of clinical trial participation, if applicable. All questions were addressed, and they demonstrated understanding. They provided informed consent to proceed with the proposed plan of care. BILLING AND COMPLIANCE: I reviewed external records from providers outside my specialty as summarized above. I spent a total of 50 minutes on this patient?s care on the day of their visit excluding time spent related to any billed procedures. This time includes time spent with the patient as well as time spent documenting in the medical record, reviewing patients records and tests, obtaining history, placing orders, communicating with other healthcare professionals, counseling the patient, family or caregiver, and/or care coordination for the diagnoses above. Electronically Signed by: {Object.Sanct_ID*PnP.NameFL@M}, {Object.Sanct_ID*PnP.Suffix@U} D: {Object.Sanct_Date} T: {Object.Sanct_Time} CC: PCP: Qiana Howard Referring: Qiana Howard This document was completed utilizing speech recognition software. Grammatical errors, random word insertions, pronoun errors, and incomplete sentences are an occasional consequence of this system due to software limitations, ambient noise, and hardware issues. Any formal questions or concerns about the content, text or information contained within the body of this dictation should be directly addressed to the provider for clarification.
== END 2025-11-11 23:59 | disposition home or self-care (01) ==
LOC: SCTC 12:59
PROVIDERS: PCP Family Medicine; Referring Provider Family Medicine; Visit Provider Radiology Therapeutic Radiology
DX: C64.1 Malignant neoplasm of right kidney, except renal pelvis (principal); C79.51 Secondary malignant neoplasm of bone; R91.8 Other nonspecific abnormal finding of lung field
CPT/HCPCS: 77470; 99213; 99214; G0463

== ENCOUNTER 2025-11-10 09:06 | Outpatient (CLI) | payer MEDICARE, SELFPAY ==
[2025-11-04 13:14] VITALS: BMI 23.3
[2025-11-09 13:13] LABS: Basophils # (Auto) 0.0 Thou/mm3 (0.0-0.2); Basophils % (Auto) 0 % (0-2.5); Eosinophils # (Auto) 0.0 Thou/mm3 (0.0-0.5); Eosinophils % (Auto) 0 % (0-10); Hematocrit 33.8 % (41.0-53.0); Hemoglobin 10.7 g/dL (13.5-16.0); Immature Granulocytes Auto 0.08 Thou/mm3 (0.00-0.00); Lymphocytes # (Auto) 0.8 Thou/mm3 (1.0-4.8); Lymphocytes % (Auto) 6 % (10-50); Mean Corpuscular HGB Conc 31.7 g/dl (31.0-37.0); Mean Corpuscular Hemoglobin 27.6 pg (25.0-35.0); Mean Corpuscular Volume 87 fL (80-100); Monocytes # (Auto) 0.3 Thou/mm3 (0.0-0.8); Monocytes % (Auto) 2 % (0-12); Neutrophils # (Auto) 11.9 Thou/mm3 (1.8-7.7); Neutrophils % (Auto) 91 % (37-80); Nucleated Red Blood Cell # 0.00 Thou/mm3 (0.00-0.00); Nucleated Red Blood Cell % 0 /100 WBC (0); Platelet Count 362 Thou/mm3 (140-440); RDW Standard Deviation 42.3 fL (35.1-43.9); Red Blood Count 3.88 Miln/mm3 (4.50-5.90); White Blood Count 13.0 Thou/mm3 (3.8-10.6)
[2025-11-09 13:20] LABS: Blood Urea Nitrogen 24 mg/dL (9-23); Creatinine (Component) 0.9 mg/dL (0.6-1.3); Estimated Creatinine Clearance 53.9 mL/min (>60); eGFR > 60 See Note
[2025-11-09 13:21] LABS: INR 1.0 (0.9-1.3); Partial Thromboplastin Time 26.3 Seconds (22.0-36.0); Prothrombin Time 10.8 Seconds (9.0-12.2)
[2025-11-10] VITALS (14 sets, daily range): BP systolic 150–173; BP diastolic 71–91; PULSE 68–79; RESP 16–23; TEMP 36.4; O2SAT 99–100
--- NOTE | 2025-11-10 08:56 | XR_ITS ---
Exam: Fluoroscopic and ultrasound-guided right IJ port placement. Date: 11/10/2025, 11:17 a.m. Indication: Access for chemotherapy. Fluoroscopy time 2.6 Dose: 16.38 mGy Technique: After a discussion of risks and benefits informed consent was obtained from the patient. Patient was brought to the angiography suite and placed supine on the exam table. Preliminary ultrasound evaluation showed the right IJ to be patent. The skin overlying the right neck and upper chest was cleaned and draped in normal sterile surgical fashion. 20 cc's of 1% lidocaine was used for local anesthesia. Conscious sedation was begun with direct nursing supervision. Using ultrasound guidance access to the IJ was obtained with a micropuncture needle. An 0.018 wire was advanced through the needle into the SVC and the needle was withdrawn. A 5 [place] micropuncture change sheath was advanced over the wire, and the wire removed. The sheath was capped. A 5 cm incision was made over right chest. Small pouch was created with a combination of sharp and blunt dissection. The port and catheter tubing were attached to the tunneling device and pulled underneath the skin and exiting at the right IJ access site. Right IJ 5 inch sheath was replaced with a 7 [place] peel-away sheath. Catheter was advanced through the peel-away sheath and peel-away sheath was removed. Distal catheter tip was appropriately positioned at the cavoatrial junction. The port pocket was closed with deep interrupted sutures using 2-0 Vicryl and superficial running sutures utilized 3-0 Vicryl. IJ access site was closed with 3-0 Vicryl and Dermabond glue Port flushed and aspirated easily and is ready for use. Impression: Successful placement of right IJ port as above with distal tip at the caval atrial junction Catheter is ready for use.
[2025-11-10] MEDS: SODIUM CHLORIDE 0.9% 500 ML 500 ML 20 ML IV (11:40)
[2025-11-10] MEDS: ceFAZolin/D5W 1 GM IVPB 1 GM/50 ML BAG IV (11:43)
[2025-11-10] MEDS: HEPARIN SOD LOCK SYR 100 UNIT/ML 500 UNIT STFIELD (12:00)
[2025-11-10] MEDS: MIDAZOLAM INJ 1 MG/ML VIAL 2 ML 0.5 MG IVP (12:00)
[2025-11-10] MEDS: fentaNYL CIT INJ 50 mCg/ML AMP 2ML IVP (12:00)
== END 2025-11-10 13:18 | disposition home or self-care (01) ==
PROVIDERS: Radiology Diagnostic Radiology; PCP Family Medicine; Referring Provider Internal Medicine Hematology & Oncology; Visit Provider Internal Medicine Hematology & Oncology
DX: C64.1 Malignant neoplasm of right kidney, except renal pelvis (principal)
CPT/HCPCS: 36571; 36415; 76937; 77001; 82565; 84520; 85025; 85610; 85730; C1769; C1788; C1894; J0689; J1642; J2250; J3010; J7050; J7999